=== PATIENT | male | born 1940 | race Caucasian/White ===

== ENCOUNTER → 2016-10-18 | Outpatient (REF) | payer MEDICARE ==
[~2016-10-18] MED LIST: AMLO10TA2 PO; ASPI81TA85 PO; ECOT81TA5 PO; LEVO50TA5 PO; LEVO75TA4 PO; METO50TA2 PO; MULT1TAB8 PO; MULTCAP11 PO
[2016-10-18 16:38] LABS: MEAN CORPUSCULAR HEMOGLOBIN 27.6 pg (27.0-33.0); MEAN CORPUSCULAR HGB CONC 32.6 g/dl (32.0-36.5); MEAN CORPUSCULAR VOLUME 84.6 fl (80.0-96.0); PLATELET COUNT, AUTOMATED 195 k/mm3 (150-450); RED CELL DISTRIBUTION WIDTH 13.6 % (11.5-14.5); WHITE BLOOD COUNT 5.7 K/mm3 (4.0-10.0)
[2016-10-18 18:30] LABS: ALBUMIN 3.8 GM/DL (3.2-5.2); ALBUMIN/GLOBULIN RATIO 1.09 (1.00-1.93); ALKALINE PHOSPHATASE 78 U/L (45-117); ALT/SGPT 34 U/L (12-78); ANION GAP 10 MEQ/L (8-16); AST/SGOT 24 U/L (15-37); BILIRUBIN,TOTAL 0.5 MG/DL (0.2-1.0); BLOOD UREA NITROGEN 13 MG/DL (7-18); CALCIUM LEVEL 8.7 MG/DL (8.8-10.2); CARBON DIOXIDE LEVEL 28 MEQ/L (21-32); CHLORIDE LEVEL 104 MEQ/L (98-107); CHOLESTEROL LEVEL 254 MG/DL (<200); CREATININE FOR GFR 1.06 MG/DL (0.70-1.30); FREE T4 1.12 NG/DL (0.76-1.46); GLOMERULAR FILTRATION RATE > 60.0 (>42); GLUCOSE, FASTING 95 MG/DL (83-110); SODIUM LEVEL 142 MEQ/L (136-145); TOTAL PROTEIN 7.3 GM/DL (6.4-8.2); TRIGLYCERIDES LEVEL 120 MG/DL (<150)
[2016-10-18 21:10] LABS: EOSINOPHILS 2 % (0-5)
== END ==
LOC: M LABDRWCV 16:21
PROVIDERS: ATTEND Emergency Medicine
DX: I10 Essential (primary) hypertension (principal); E78.2 Mixed hyperlipidemia; E03.9 Hypothyroidism, unspecified; E55.9 Vitamin D deficiency, unspecified; N40.1 Benign prostatic hyperplasia with lower urinary tract symptoms
CPT/HCPCS: 80053; 80061; 82306; 84439; 84443; 85025; G0103

== ENCOUNTER → 2016-10-26 | Outpatient (REF) | payer MEDICARE | LOC: M SMT 16:59 | PROVIDERS: ATTEND Nurse Practitioner Family | DX: R97.20 Elevated prostate specific antigen [PSA] (principal); R39.15 Urgency of urination; Z80.42 Family history of malignant neoplasm of prostate ==

== ENCOUNTER → 2016-11-08 | Outpatient (CLI) | payer MEDICARE ==
--- NOTE | 2016-11-08 10:16 | REP ---
TRANSRECTAL PROSTATE ULTRASOUND WITH ULTRASOUND GUIDANCE FOR PROSTATE BIOPSY: Real-time sonographic evaluation of prostate performed utilizing transrectal probe. The size of the gland is 4.0 x 2.8 x 4.8 cm. Echotexture is heterogeneous with scattered tiny calcifications. A right sided nodule measures 4 x 7 x 6 mm. Seminal vesicles appear symmetrical. Ultrasound guidance was provided for Dr. Tadeo who performed ultrasound guided biopsy of the prostate. Signed by Darwin Kelly MD 11/08/2016 04:21 P
== END ==
LOC: M SMT PRO 08:18
PROVIDERS: ATTEND Urology
DX: C61 Malignant neoplasm of prostate (principal)
CPT/HCPCS: 76872; 76942; G0416

== ENCOUNTER → 2016-11-18 | Outpatient (CLI) | payer MEDICARE ==
[~2016-11-18] MED LIST changes: +ISOVUE-370 76% 100ML VIAL (Q9967) As Ordered ONE
--- NOTE | 2016-11-18 11:15 | REP ---
CT of the pelvis without IV contrast: There are no comparisons. There are no lytic, blastic or destructive skeletal changes. The sacroiliac articulations and right and left hip articulations are unremarkable. The urinary bladder is unremarkable. Prostate appears slightly enlarged. Seminal vesicles are normal size and symmetric. There is no pelvic adenopathy or ascites. The pelvic bowel loops are unremarkable. Impression: Essentially negative CT of the pelvis. Sign of acute Signed by Darwin Cardona MD 11/18/2016 11:07 A
== END ==
LOC: M RAD 10:25
PROVIDERS: ATTEND Urology
DX: C61 Malignant neoplasm of prostate (principal)
CPT/HCPCS: 72193; Q9967

== ENCOUNTER → 2016-12-01 | Outpatient (CLI) | payer MEDICARE ==
[~2016-12-01] MED LIST changes: -ISOVUE-370 76% 100ML VIAL (Q9967) As Ordered ONE; -METO50TA2 PO; +METO50TA7 PO
--- NOTE | 2016-12-01 13:49 | RADONC ---
RADIATION ONCOLOGY CONSULTATION NOTE DATE: 12/01/2016 CHART NUMBER: [id number]. DIAGNOSIS: Prostate cancer. STAGE: IIA, [id number]. ECOG PERFORMANCE STATUS: 0. CONSULTATION NOTE: Mr. 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 HISTORY OF PRESENT ILLNESS: The patient was in his usual state of health until routine PSA was done on 10/18/2016 which was found to be 17.8. On 11/08/2016 the patient underwent prostatic needle biopsy and pathology revealed a moderate to poorly differentiated Javier score 7 (4-3) adenocarcinoma of prostate involving the right side. The patient has done well since biopsy is now presenting for discussion of definitive external beam radiation therapy with IMRT / IGRT. PAST MEDICAL HISTORY: The patient's past medical history is positive for hypothyroidism. ALLERGIES: The patient has no known drug allergies. SOCIAL HISTORY: The patient does not smoke cigarettes nor abuse alcohol. FAMILY HISTORY: The patient's family history is positive for a father and brother with prostate cancer. REVIEW OF SYSTEMS: The patient's review of systems is positive for some decreased energy, but is otherwise noncontributory. He denies nausea, vomiting, fevers, chills, night sweats, diplopia, headaches, anxiety or depression, anorexia, weight loss, visual disturbances, chest pain, urinary or bowel difficulties, bone pain, or neurological problems. PHYSICAL EXAMINATION: The patient is a well-developed, well-nourished male in no acute distress. HEENT exam is normocephalic, atraumatic. Extraocular movements are intact. There is no palpable cervical, supraclavicular, infraclavicular, axillary, or inguinal lymphadenopathy present. Lungs are clear to auscultation and percussion. Heart has a regular rate and rhythm. Abdomen is benign with no hepatosplenomegaly, masses, or tenderness. Rectal examination reveals a normal anal sphincter tone. His prostate is smooth with no evidence of nodularity. Skeletal examination reveals no tenderness to pressure or percussion of the bony skeleton. Extremities reveal no clubbing, cyanosis, or edema. Neurologic exam is grossly intact as is the remainder of the physical examination. MEDICAL NECESSITY: IMRT/IGRT is clinically indicated for the highly conformal dose planning required. The target volume is in close proximity to critical structures, such as the rectum, bladder, small bowel, and femoral heads. The volume of interest must be covered with narrow margins to adequately protect immediately adjacent structures. The plan requires interpretation of complex testing such as CT localization. As noted above, special planning (IMRT) and localizing (IGRT) is required and essential to maximally protect sensitive normal tissue structures which cannot be accomplished using conventional 3-dimensional planning. IMAGING: A CT scan of the pelvis was undertaken on 11/18/2016 which showed no evidence of lymphadenopathy or bony metastasis. I have personally reviewed that study. ASSESSMENT: Mr. Mckenna is presenting to us today for discussion of definitive external beam radiation therapy for his stage IIA, S1cY1S0 moderate to poorly differentiated adenocarcinoma of prostate, Coahoma score 7 (4-3). Clearly the patient is a candidate for this treatment and I have so informed him. I have discussed with the patient in detail the potential benefits as well as possible acute and chronic sequelae of external beam radiation therapy. We discussed logistics of treatment planning, simulation and subsequent fractionated daily radiation treatments. I discussed the benefits of treating with IMRT in order to reduce the doses to the normal structures such as and specifically to his bladder and rectum. We also discussed reduction of dose through IMRT to the small bowel. In addition, I spoke to the patient about the alternate treatment option which would be surgery. We discussed the benefits and drawbacks of each of the different treatment modalities. The patient is considering his options at this time. I have given him my cell phone number as well as office number and asked him to contact me once he makes a decision. He reports that he will be letting us know soon whether or not he wants surgery or radiation. Thank you for allowing us to participate in the care of this very pleasant gentleman. If I could be of any further assistance or provide you with any information, please feel free to contact me anytime. cc: Xander Tadeo MD *Magan Dodson MD
== END ==
LOC: M ONCR 08:56
PROVIDERS: ATTEND Radiology Radiation Oncology
DX: C61 Malignant neoplasm of prostate (principal)

== ENCOUNTER → 2016-12-13 | Outpatient (CLI) | payer MEDICARE ==
[~2016-12-13] MED LIST changes: +METO50TA2 PO; -METO50TA7 PO
--- NOTE | 2016-12-13 13:21 | REP ---
Whole body radionuclide bone scan: History: Prostate carcinoma. Technique: 21.2 mCi technetium 99m MDP is injected and standard whole body bone scan imaging is acquired. Scintigraphic findings: There is a normal distribution of skeletal tracer with uptake in bilateral kidneys and in the urinary bladder. Mild arthritic uptake is seen in the hands, knees and feet bilaterally. There is no evidence to suggest skeletal metastatic disease. Impression: No evidence to suggest skeletal metastatic disease. Signed by Alden Cuello MD 12/13/2016 01:42 P
== END ==
LOC: M RAD 09:26
PROVIDERS: ATTEND Radiology Radiation Oncology
DX: C61 Malignant neoplasm of prostate (principal)
CPT/HCPCS: 78306; A9503

== ENCOUNTER → 2017-01-10 | Outpatient (CLI) | payer MEDICARE ==
--- NOTE | 2017-01-10 15:24 | REP ---
TRANSRECTAL ULTRASOUND GUIDANCE FOR FIDUCIARY MARKER PLACEMENT: Real-time sonographic evaluation of the prostate performed utilizing transrectal probe for guidance for fiduciary marker placement. Six fiduciary markers were placed by Dr. Tadeo under transrectal ultrasound guidance. Signed by Darwin Kelly MD 01/11/2017 07:37 P
== END ==
LOC: M SMT 08:46
PROVIDERS: ATTEND Urology
DX: C61 Malignant neoplasm of prostate (principal)
CPT/HCPCS: 76872; A4648

== ENCOUNTER 2017-02-22 11:50 | Outpatient (RCR) | payer MEDICARE ==
--- NOTE | 2017-02-22 11:00 | RADONC ---
RADIATION ONCOLOGY SIMULATION NOTE DATE: 02/22/2017 CHART NUMBER: [id number] Mr. Mckenna was taken to the CT scan for CT simulation of his prostate field. CT was accomplished without difficulty or discomfort. Radiation treatment planning is underway and radiation treatments will begin subsequently. An immobilization device was created without difficulty or discomfort. It will be used throughout the course of treatment. I was physically present throughout the course of CT simulation.
== END 2017-02-27 ==
LOC: M ONCR 11:50
PROVIDERS: ATTEND Radiology Radiation Oncology
DX: C61 Malignant neoplasm of prostate (principal)

== ENCOUNTER → 2017-02-22 | Outpatient (CLI) | payer MEDICARE ==
[~2017-02-22] MED LIST changes: -METO50TA2 PO; +METO50TA7 PO
[2017-02-22 11:31] LABS: MEAN CORPUSCULAR HEMOGLOBIN 28.9 pg (27.0-33.0); MEAN CORPUSCULAR HGB CONC 34.7 g/dl (32.0-36.5); MEAN CORPUSCULAR VOLUME 83.4 fl (80.0-96.0); RED CELL DISTRIBUTION WIDTH 14.1 % (11.5-14.5); WHITE BLOOD COUNT 6.2 K/mm3 (4.0-10.0)
== END ==
LOC: M RAD 10:16
PROVIDERS: ATTEND Radiology Radiation Oncology
DX: C61 Malignant neoplasm of prostate (principal)

== ENCOUNTER 2017-02-28 13:16 | Outpatient (RCR) | payer MEDICARE ==
--- NOTE | 2017-03-14 07:42 | RADONC ---
RADIATION ONCOLOGY PROGRESS NOTE DATE OF SERVICE: 03/13/2017 CHART NUMBER: [id number] Mr. Mckenna is presently at a dose of 720 centigrade to his prostate and is tolerating treatments quite well at this point with no complaints related to his radiation therapy. He is having no urinary or bowel difficulties. No bone pain. REVIEW OF SYSTEMS: The patient's review of systems is noncontributory. Denies nausea, vomiting, fevers, chills, night sweats, diplopia, headaches, anxiety or depression, anorexia, weight loss, visual disturbances, chest pain, urinary or bowel difficulties, bone pain, or neurological problems. PHYSICAL EXAMINATION: The patient's skin is in good condition with no evidence of radiation change present. There is no moist or dry desquamation. The remainder of his physical exam remains unchanged. Mr. Mckenna is tolerating treatments quite well and radiation will continue as scheduled.
--- NOTE | 2017-03-21 07:45 | RADONC ---
RADIATION ONCOLOGY PROGRESS NOTE DATE: 03/20/2017 CHART NUMBER: [id number] Mr. Mckenna is presently at a dose of 1620 cGy to his prostate and is tolerating treatments quite well at this point with no complaints related to his radiation therapy. He is having no urinary or bowel difficulties and no bone pain. The patient's review of systems is noncontributory. He denies nausea, vomiting, fevers, chills, night sweats, diplopia, headaches, anxiety or depression, anorexia, weight loss, visual disturbances, chest pain, urinary or bowel difficulties, bone pain, or neurological problems. PHYSICAL EXAMINATION: The patient's skin is in good condition with no evidence of moist or dry desquamation. The remainder of his physical exam remains unchanged. Mr. Mckenna is tolerating treatments quite well and radiation will continue as scheduled.
--- NOTE | 2017-03-28 08:29 | RADONC ---
RADIATION ONCOLOGY PROGRESS NOTE DATE: CHART NUMBER: [id number] Mr. Mckenna is presently at a dose of 2520 cGy to his prostate and is tolerating treatments quite well at this point with no complaints related to his radiation therapy. He is having no urinary or bowel difficulties and no bone pain. REVIEW OF SYSTEMS: The patient's review of systems is noncontributory. Denies nausea, vomiting, fevers, chills, night sweats, diplopia, headaches, anxiety or depression, anorexia, weight loss, visual disturbances, chest pain, urinary or bowel difficulties, bone pain, or neurological problems. PHYSICAL EXAMINATION: The patient's skin is in good condition with no evidence of radiation change present. There is no moist or dry desquamation. The remainder of his physical exam remains unchanged. Mr. Mckenna is tolerating treatments quite well and radiation will continue as scheduled.
== END 2017-03-30 ==
LOC: M ONCR 13:16
PROVIDERS: ATTEND Radiology Radiation Oncology
DX: C61 Malignant neoplasm of prostate (principal)

== ENCOUNTER 2017-03-31 13:59 | Outpatient (RCR) | payer MEDICARE ==
--- NOTE | 2017-04-05 10:31 | RADONC ---
RADIATION ONCOLOGY PROGRESS NOTE DATE: 04/04/2017 CHART NUMBER: [id number] Mr. Mckenna is presently at a dose of 3240 cGy to his prostate and is tolerating treatments quite well at this point with no complaints related to his radiation therapy. He is having no urinary or bowel difficulties. No bone pain. The patient's review of systems is noncontributory. He denies nausea, vomiting, fevers, chills, night sweats, diplopia, headaches, anxiety or depression, anorexia, weight loss, visual disturbances, chest pain, urinary or bowel difficulties, bone pain, or neurological problems. PHYSICAL EXAMINATION: The patient's skin is in good condition with no evidence of radiation change present. There is no moist or dry desquamation. The remainder of his physical exam remains unchanged. Mr. Mckenna is tolerating treatments quite well and radiation will continue as scheduled.
--- NOTE | 2017-04-11 08:22 | RADONC ---
RADIATION ONCOLOGY PROGRESS NOTE DATE: 04/10/2017 CHART NUMBER: [id number] Mr. Mckenna is presently at a dose of 3960 cGy to his prostate and is tolerating treatments quite well at this point with no complaints related to his radiation therapy. He is having no urinary or bowel difficulties. No bone pain. REVIEW OF SYSTEMS: The patient's review of systems is noncontributory. Denies nausea, vomiting, fevers, chills, night sweats, diplopia, headaches, anxiety or depression, anorexia, weight loss, visual disturbances, chest pain, urinary or bowel difficulties, bone pain, or neurological problems. PHYSICAL EXAMINATION: The patient's skin is in good condition with no evidence of radiation change present. There is no moist or dry desquamation. The remainder of his physical exam remains unchanged. ASSESSMENT: The patient is tolerating treatments quite well at this point with no significant difficulties related to his radiation and treatments will continue as scheduled.
--- NOTE | 2017-04-18 07:50 | RADONC ---
RADIATION ONCOLOGY PROGRESS NOTE DATE: 04/17/2017 CHART NUMBER: [id number]. PROGRESS NOTE: Mr. Mckenna is presently at a dose of 4680 cGy to his prostate and is overall tolerating his treatments quite well. He is complaining of burning urination today. The patient's review of systems is positive for some burning upon urination but is otherwise noncontributory. Denies nausea, vomiting, fevers, chills, night sweats, diplopia, headaches, anxiety or depression, anorexia, weight loss, visual disturbances, chest pain, urinary or bowel difficulties, bone pain, or neurological problems. PHYSICAL EXAMINATION: The patient's skin is in good condition with no evidence of radiation change present. There is no moist or dry desquamation. The remainder of his physical exam remains unchanged. Mr. Mckenna is tolerating treatments quite well and radiation will continue as scheduled.
--- NOTE | 2017-04-25 09:25 | RADONC ---
RADIATION ONCOLOGY PROGRESS NOTE: DATE: 04/24/2017 CHART NUMBER: [id number] Mr. Mckenna is presently at a dose of 5580 cGy to his prostate and is tolerating treatments quite well at this point with no complaints related to his radiation therapy. He is having no urinary or bowel difficulties and no bone pain. REVIEW OF SYSTEMS: The patient's review of systems is noncontributory. He denies nausea, vomiting, fevers, chills, night sweats, diplopia, headaches, anxiety or depression, anorexia, weight loss, visual disturbances, chest pain, urinary or bowel difficulties, bone pain, or neurological problems. PHYSICAL EXAMINATION: The patient's skin is in good condition with no evidence of radiation change present. There is no moist or dry desquamation. The remainder of his physical exam remains unchanged. Mr. Mckenna is tolerating treatments quite well and radiation will continue as scheduled.
== END 2017-04-29 ==
LOC: M ONCR 13:59
PROVIDERS: ATTEND Radiology Radiation Oncology
DX: C61 Malignant neoplasm of prostate (principal)

== ENCOUNTER → 2017-04-17 | Outpatient (CLI) | payer MEDICARE | LOC: M LAB 16:07 | PROVIDERS: ATTEND Radiology Radiation Oncology | DX: R30.0 Dysuria (principal); C61 Malignant neoplasm of prostate ==

== ENCOUNTER → 2017-06-07 | Outpatient (CLI) | payer MEDICARE ==
--- NOTE | 2017-06-09 16:03 | RADONC ---
RADIATION ONCOLOGY FOLLOWUP DATE: 06/07/2017 CHART NUMBER: [id number] DIAGNOSIS Prostate cancer. STAGE: II A, H3bQ7G6. ECOG PERFORMANCE STATUS: 0. FOLLOWUP NOTE: Mr. Mckenna is a very pleasant 76-year-old white male with the diagnosis of a stage II A, U8jU8T1 moderate to poorly differentiated Javier score 7 (4-3) adenocarcinoma of prostate who is presenting to us today for routine followup visit 1 month post completion of external beam radiation therapy. The patient presents today reporting that he is doing quite well with no complaints at this time related to his radiation therapy or disease. He has no urinary or bowel difficulties and no bone pain. REVIEW OF SYSTEMS: The patient's review of systems is noncontributory. Denies nausea, vomiting, fevers, chills, night sweats, diplopia, headaches, anxiety or depression, anorexia, weight loss, visual disturbances, chest pain, urinary or bowel difficulties, bone pain, or neurological problems. PHYSICAL EXAMINATION: The patient is a well-developed, well-nourished male in no acute distress. HEENT exam is normocephalic, atraumatic. Extraocular movements are intact. There is no palpable cervical, supraclavicular, infraclavicular, axillary, or inguinal lymphadenopathy present. Lungs are clear to auscultation and percussion. Heart has a regular rate and rhythm. Abdomen is benign with no hepatosplenomegaly, masses, or tenderness. Rectal examination reveals a normal anal sphincter tone. His prostate is smooth with no evidence of nodularity. Skeletal examination reveals no tenderness to pressure or percussion of the bony skeleton. Extremities reveal no clubbing, cyanosis, or edema. Neurologic exam is grossly intact, as is the remainder of the physical examination. ASSESSMENT: The patient is clinically doing well at this point and will be seen by us again in 6 months for further followup. He will also continue to be followed by his other physicians as well. cc: MD Xander Ruano MD
== END ==
LOC: M ONCR 15:06
PROVIDERS: ATTEND Radiology Radiation Oncology
DX: C61 Malignant neoplasm of prostate (principal)
CPT/HCPCS: 36415; 84153; G0463

== ENCOUNTER → 2017-06-07 | Outpatient (CLI) | payer MEDICARE | LOC: M LAB 15:01 | PROVIDERS: ATTEND Radiology Radiation Oncology | DX: C61 Malignant neoplasm of prostate (principal) ==

== ENCOUNTER → 2017-11-29 | Outpatient (CLI) | payer MEDICARE ==
[2017-11-29 12:52] LABS: PROSTATIC SPECIFIC AG MONITOR 0.02 NG/ML (< 4.0)
== END ==
LOC: M ONCR 11:20
DX: C61 Malignant neoplasm of prostate (principal)
CPT/HCPCS: 84153

== ENCOUNTER → 2018-01-01 | Outpatient (REF) | payer MEDICARE ==
[2018-01-01 19:30] LABS: TOTAL 25(OH) VITAMIN D 16.5 NG/ML (30.0-100.0)
[2018-01-01 19:33] LABS: ALBUMIN 3.6 GM/DL (3.2-5.2); ALBUMIN/GLOBULIN RATIO 0.97 (1.00-1.93); ALKALINE PHOSPHATASE 104 U/L (45-117); ALT/SGPT 22 U/L (12-78); ANION GAP 9 MEQ/L (8-16); AST/SGOT 16 U/L (7-37); BILIRUBIN,TOTAL 0.4 MG/DL (0.2-1.0); BLOOD UREA NITROGEN 12 MG/DL (7-18); CALCIUM LEVEL 8.5 MG/DL (8.8-10.2); CARBON DIOXIDE LEVEL 29 MEQ/L (21-32); CHLORIDE LEVEL 105 MEQ/L (98-107); CHOLESTEROL LEVEL 261 MG/DL (<200); CHOLESTEROL RISK RATIO 5.117 (<5); CREATININE FOR GFR 0.88 MG/DL (0.70-1.30); FREE T4 0.96 NG/DL (0.76-1.46); GLOMERULAR FILTRATION RATE > 60.0 (>42); GLUCOSE, FASTING 89 MG/DL (70-100); HDL CHOLESTEROL 51 MG/DL (>40); LDL CHOLESTEROL 167.6 MG/DL (<100); NON-HDL-C 210 MG/DL; POTASSIUM SERUM 4.2 MEQ/L (3.5-5.1); SODIUM LEVEL 143 MEQ/L (136-145); THYROID STIMULATING HORMONE 0.887 uIU/ML (0.358-3.740); TOTAL PROTEIN 7.3 GM/DL (6.4-8.2); TRIGLYCERIDES LEVEL 212 MG/DL (<150)
== END ==
LOC: M LAB REF 17:46
DX: E78.2 Mixed hyperlipidemia (principal); E03.9 Hypothyroidism, unspecified; E55.9 Vitamin D deficiency, unspecified
CPT/HCPCS: 84443

== ENCOUNTER → 2018-05-15 | Outpatient (REF) | payer MEDICARE | LOC: M LABDRWCV 16:26 | DX: C61 Malignant neoplasm of prostate (principal) | CPT/HCPCS: 84153 ==

== ENCOUNTER → 2018-06-06 | Outpatient (CLI) | payer MEDICARE | LOC: M ONCR 15:07 | DX: C61 Malignant neoplasm of prostate (principal) | CPT/HCPCS: G0463 ==

== ENCOUNTER → 2018-08-12 | Outpatient (CLI) | payer MEDICARE ==
[~2018-08-12] MED LIST changes: -AMLO10TA2 PO; +AMLO10TA5 PO
[2018-08-12 17:25] LABS: BASO % 0.4 % (0.0-1.0); EOS # 0.1 10^3/uL (0.0-0.50); EOS % 0.9 % (0.0-3.0); HEMATOCRIT 45.2 % (42.0-52.0); HEMOGLOBIN 14.7 g/dl (13.5-17.5); LYMPH # 0.8 10^3/uL (1.5-4.5); LYMPH % 10.2 % (24.0-44.0); MEAN CORPUSCULAR HEMOGLOBIN 27.7 pg (27.0-33.0); MEAN CORPUSCULAR HGB CONC 32.5 g/dl (32.0-36.5); MEAN CORPUSCULAR VOLUME 85.1 fl (80.0-96.0); MONO # 0.4 10^3/uL (0.0-0.8); MONO % 5.4 % (0.0-5.0); NEUTROPHILS # 6.3 10^3/uL (1.8-7.7); NEUTROPHILS % 82.7 % (36.0-66.0); PLATELET COUNT, AUTOMATED 196 10^3/uL (150-450); RED BLOOD COUNT 5.31 10^6/uL (4.30-6.10); WHITE BLOOD COUNT 7.6 10^3/uL (4.0-10.0)
[2018-08-12 17:38] LABS: ALBUMIN 3.8 GM/DL (3.2-5.2); ALT/SGPT 29 U/L (12-78); BILIRUBIN,TOTAL 0.4 MG/DL (0.2-1.0); BLOOD UREA NITROGEN 14 MG/DL (7-18); CALCIUM LEVEL 8.6 MG/DL (8.8-10.2); CARBON DIOXIDE LEVEL 28 MEQ/L (21-32); CHLORIDE LEVEL 101 MEQ/L (98-107); CREATININE FOR GFR 0.92 MG/DL (0.70-1.30); GLOMERULAR FILTRATION RATE > 60.0 (>42); GLUCOSE, FASTING 96 MG/DL (70-100); IRON (FE) 72 UG/DL (65-175); PERCENT SATURATION 18.2 % (19.7-50.0); POTASSIUM SERUM 4.1 MEQ/L (3.5-5.1); SODIUM LEVEL 138 MEQ/L (136-145); THYROID STIMULATING HORMONE 0.887 uIU/ML (0.358-3.740); TOTAL IRON BINDING CAPACITY 396 UG/DL (250-450); TOTAL PROTEIN 7.8 GM/DL (6.4-8.2)
[2018-08-12 17:53] LABS: ERYTHROCYTE SEDIMENTATION RATE 23 mm/hr (0-20)
== END ==
LOC: M WUC 12:36
PROVIDERS: ATTEND Physician Assistant
DX: R42 Dizziness and giddiness (principal); H68.013 Acute Eustachian salpingitis, bilateral; R51 Headache

== ENCOUNTER → 2018-11-07 | Outpatient (REF) | payer MEDICARE ==
[2018-11-07 18:01] LABS: CHOLESTEROL RISK RATIO 5.313 (<5)
[2018-11-07 18:10] LABS: TOTAL 25(OH) VITAMIN D 26.6 NG/ML (30.0-100.0)
== END ==
LOC: M LABDRWCV 16:50
PROVIDERS: ATTEND Physician Assistant Medical
DX: E78.2 Mixed hyperlipidemia (principal); E55.9 Vitamin D deficiency, unspecified; C61 Malignant neoplasm of prostate

== ENCOUNTER → 2018-11-07 | Outpatient (REF) | payer MEDICARE | LOC: M SFHCCAPE 09:41 | PROVIDERS: ATTEND Urology | DX: C61 Malignant neoplasm of prostate (principal) ==

== ENCOUNTER → 2019-02-12 | Outpatient (REF) | payer MEDICARE | LOC: M LAB REF 11:45 | PROVIDERS: ATTEND Physician Assistant | DX: J02.9 Acute pharyngitis, unspecified (principal) ==

== ENCOUNTER → 2019-03-05 | Outpatient (REF) | payer MEDICARE ==
[2019-03-05 17:00] LABS: PROSTATIC SPECIFIC AG MONITOR 0.03 NG/ML (< 4.00)
[2019-03-06 14:25] LABS: CHOLESTEROL RISK RATIO 3.175 (<5)
== END ==
LOC: M SFHCCAPE 07:42
PROVIDERS: ATTEND Urology
DX: C61 Malignant neoplasm of prostate (principal); E78.2 Mixed hyperlipidemia

== ENCOUNTER → 2019-05-20 | Outpatient (CLI) | payer MEDICARE | LOC: M LAB 14:39 | PROVIDERS: ATTEND Urology | DX: C61 Malignant neoplasm of prostate (principal) ==

== ENCOUNTER → 2019-08-06 | Outpatient (REF) | payer MEDICARE | LOC: M SFHCCAPE 07:26 | PROVIDERS: ATTEND Urology | DX: C61 Malignant neoplasm of prostate (principal) ==

== ENCOUNTER → 2019-08-06 | Outpatient (REF) | payer MEDICARE ==
[2019-08-06 18:45] LABS: HEMOGLOBIN A1c 6.1 %
[2019-08-06 18:47] LABS: ALBUMIN 3.5 GM/DL (3.2-5.2); ALT/SGPT 25 U/L (12-78); BILIRUBIN,TOTAL 0.4 MG/DL (0.2-1.0); BLOOD UREA NITROGEN 16 MG/DL (7-18); CALCIUM LEVEL 9.1 MG/DL (8.8-10.2); CARBON DIOXIDE LEVEL 28 MEQ/L (21-32); CHLORIDE LEVEL 104 MEQ/L (98-107); CHOLESTEROL LEVEL 261 MG/DL (<200); CREATININE FOR GFR 0.96 MG/DL (0.70-1.30); FREE T4 0.95 NG/DL (0.76-1.46); GLOMERULAR FILTRATION RATE > 60.0 (>42); GLUCOSE, FASTING 92 MG/DL (70-100); HDL CHOLESTEROL 50 MG/DL (>40); LDL CHOLESTEROL 167 MG/DL (<100); NON-HDL-C 211 MG/DL; POTASSIUM SERUM 4.2 MEQ/L (3.5-5.1); SODIUM LEVEL 140 MEQ/L (136-145); TOTAL 25(OH) VITAMIN D 26.8 NG/ML (30.0-100.0); TOTAL PROTEIN 7.4 GM/DL (6.4-8.2); TRIGLYCERIDES LEVEL 221 MG/DL (<150)
== END ==
LOC: M LABDRWCV 16:54
PROVIDERS: ATTEND Physician Assistant Medical
DX: Z00.00 Encounter for general adult medical examination without abnormal findings (principal); E03.9 Hypothyroidism, unspecified; I10 Essential (primary) hypertension; E55.9 Vitamin D deficiency, unspecified; E78.2 Mixed hyperlipidemia; Z79.899 Other long term (current) drug therapy; C61 Malignant neoplasm of prostate

== ENCOUNTER → 2020-05-27 | Outpatient (REF) | payer MEDICARE ==
[~2020-05-27] MED LIST changes: -AMLO10TA5 PO; +AMLO1TAB25 PO; -ASPI81TA85 PO; +ASPI81TA86 PO
== END ==
LOC: M SFHCCLAY 08:55
PROVIDERS: ATTEND Urology
DX: C61 Malignant neoplasm of prostate (principal)

== ENCOUNTER → 2020-06-02 | Outpatient (REF) | payer MEDICARE ==
[2020-06-02 18:18] LABS: APPEARANCE, URINE CLEAR (CLEAR); BACTERIA, URINE AUTO NEGATIVE (NEGATIVE); BILIRUBIN, URINE AUTO NEGATIVE (NEGATIVE); BLOOD, URINE BLOOD NEGATIVE (NEGATIVE); COLOR, URINE YELLOW (YELLOW); GLUCOSE, URINE (UA) AUTO NEGATIVE (NEGATIVE); KETONE, URINE AUTO NEGATIVE (NEGATIVE); LEUKOCYTE ESTERASE, URINE AUTO NEGATIVE (NEGATIVE); NITRITE, URINE AUTO NEGATIVE (NEGATIVE); PROTEIN, URINE AUTO NEGATIVE (NEGATIVE); RBC, URINE AUTO 0 /HPF (0-3); SPECIFIC GRAVITY URINE AUTO 1.013 (1.002-1.035); SQUAMOUS EPITHELIAL CELL UR AU 0 /HPF (0-6); UROBILINOGEN, URINE AUTO 0.2 mg/dL (0.0-2.0); WBC, URINE AUTO 0 /HPF (0-3)
== END ==
LOC: M SMT 17:00
PROVIDERS: ATTEND Urology
DX: R31.0 Gross hematuria (principal)
CPT/HCPCS: 81001; 87086; G0463

== ENCOUNTER 2020-08-20 06:57 | Emergency (ER) | payer MEDICARE ==
[~2020-08-20] VITALS: Ht 177.8 cm; Wt 89.1 kg
--- OUTSIDE RECORDS SUMMARY | 2020-08-20 07:03 | CCD | Continuity of Care Document ---
Author Author Juan J [facility] [employer] [facility] Organization Unknown Address [address] [place] [address] [place] [address] Phone [phone] Care Team Providers Care Family Court Registrar Name Role Phone [facility] - Family Medicine [facility] + [phone] Problems Description No Information Available Social History Type Date Description Comments Sex Unknown ETOH Use Denies alcohol use Tobacco Use Start: Unknown Patient has never smoked Smoking Status Reviewed: 08/06/20 Patient has never smoked Allergies, Adverse Reactions, Alerts Description No Known Drug Allergies Medications Active Medications SIG Qnty Indications Ordering Provide r Date Amoxicillin 875mg Tablets 1 tab by mouth twice a day as directed x 10 days 20tabs H65.02 Bacilio olivares JR., M.D. 08/06/2020 Loratadine 10mg Tablets once a day as needed for allergy symptoms 30tabs H65.02 Bacilio Almazan M.D. 08/06/2020 Levothyroxine Sodium 75mcg Tablets Unknown Vitamin D (Ergocalciferol) 2000Unit Capsules Unknown Fish Oil 435mg Capsules Unknown Icaps Areds 2 2 Capsules Unknown Multivitamin Adult Chewtabs 1 by mouth every day Unknown Aspirin 325mg Tablets prn Unknown Aspercreme 10% Lotion Unknown Immunizations Description No Information Available Vital Signs Date Vital Result Comment 08/06/2020 6:04pm BP Systolic 156 mmHg BP Diastolic 79 mmHg Heart Rate 85 /min Respiratory Rate 12 /min O2 % BldC Oximetry 97 % Body Temperature 97.8 F Weight 180.00 lb Height 70 inches 5'10" BMI (Body Mass Index) 25.8 kg/m2 Pain Level 6 02/12/2019 4:34pm BP Systolic 172 mmHg BP Diastolic 93 mmHg Heart Rate 93 /min Respiratory Rate 18 /min O2 % BldC Oximetry 95 % Body Temperature 99.5 F Weight 180.00 lb Height 70 inches 5'10" BMI (Body Mass Index) 25.8 kg/m2 Pain Level 6 Results Description No Information Available Procedures Description No Information Available Medical Devices Description No Information Available Encounters Type Date Location Provider Dx Diagnosis Office Visit 08/06/2020 5:20p Main Office Zulema Dominique NP H65. 02 Acute serous otitis media, left ear Assessments Date Code Description Provider 08/06/2020 H65.02 Acute serous otitis media, left ear Zulema Dominique NP Plan of Treatment 08/06/2020 - Zulema Dominique NP* H65.02 Acute serous otitis media, left ear* New Medication:* Amoxicillin 875 mg - 1 tab by mouth twice a day as directed x 10 days * Loratadine 10 mg - once a day as needed for allergy symptoms * Comments:* use abx as directedrest/timetylenol/motrin PRN for painf/u PRN or with PCP patient v/u & agrees to plan Functional Status Description No Information Available Mental Status Description No Information Available Referrals Description No Information Available
--- OUTSIDE RECORDS SUMMARY | 2020-08-20 07:03 | CCD | Continuity of Care Document ---
Author Author Juan J [facility] MANAGER [employer] Organization Unknown Address [address] [place] [address] [place] [address] Phone [phone] Care Team Providers Care Radiology Physician Assistant Name Role Phone [facility] - Family Medicine [facility] + [phone] Problems Description No Information Available Social History [...]
--- OUTSIDE RECORDS SUMMARY | 2020-08-20 07:03 | CCD ---
Author Author [facility] Organization [facility] Address Unknown Phone Unavailable Care Team Providers Care Public Aid Eligibility Assistant Name Role Phone Xander Tadeo Unavailable PROBLEMS Type Condition ICD9-CM Code [id number]-FN Code Onset Dates Condition S tatus SNOMED Code Notes Problem Preop testing Z01.818 Active 276067705 Problem Gross hematuria R31.0 Active 990023284 Problem Prostate cancer C61 Active [id number] ALLERGIES No Known Allergies ENCOUNTERS from 1940 to 2020-06-09 Encounter Location Date Provider Diagnosis [facility] [address] [place] [address] May Xander Tadeo Prostate cancer C61 and Gross hematuria R31.0 IMMUNIZATIONS No Information SOCIAL HISTORY Tobacco Use: Social History Observation Description Date Details (start date - stop date) Never Smoker Sex Assigned At : Social History Observation Description Sex Assigned At Unknown Language: Question Answer Notes Languages spoken: Maltese Judaism: Question Answer Notes Judaism No islam beliefs that would impact health care. Sexual Hx: Question Answer Notes Had sex in the last 12 months (vaginal, oral, or anal)? No Have you ever had an STD? No Alcohol Screening: Question Answer Notes Did you have a drink containing alcohol in the past year? No Points 0 Interpretation Negative Tobacco Use: Question Answer Notes Are you a: never smoker REASON FOR REFERRAL No Information VITAL SIGNS Weight 181 lbs May, Height 70 in May, BMI 25.97 kg/m2 May, Heart Rate 86 /min May, Respiratory Rate 17 /min May, Temperature 96.6 degrees Fahrenheit May, Oximetry 98 May, Blood pressure systolic 138 mm Hg May, Blood pressure diastolic 68 MANUAL mm Hg May, MEDICATIONS Medication SIG (Take, Route, Frequency, Duration) Start Date En d Date Status CoQ-10 100 MG 1 capsule with a meal Orally Once a day Active Lupron Depot (1-Month) 7.5 MG as directed Intramuscular once Feb Not-Taking Levothyroxine Sodium 75 MCG 1 tablet on an empty stoma ch in the morning Orally Once a day Active Aspir-81 81 MG 1 tablet Orally Once a day Active Vitamin D 1000 UNIT 1 tablet Orally Once a day Active ICaps - Orally Not-Taking Omeprazole 40 MG 1 capsule Orally Once a day Not-Taking Ciprofloxacin HCl 500 MG 1 tablet (start taking the e vening prior to your procedure) Orally every 12 hrs Sep, Not-Takin g Multivital-M Active Eligard 7.5 MG as directed Subcutaneous q 6 months Apr, Not-Taking Eligard 7.5 MG as directed Subcutaneous monthly May, Not-Taking Fish Oil 1000 MG 1 capsule Orally Once a day Active Lupron Depot 45 MG as directed Intramuscular once Dec, Not-Taking PROCEDURES No Information RESULTS Component Value Reference Range UA URINALYSIS Reviewed date:06/03/2020 13:53:55 Interpretation: Performing Lab:Critical access hospital LABORATORY [address] [facility] [address] , ,[place] [id number] URINE CULTURE Reviewed date:06/03/2020 13:54:05 Interpretation: Performing Lab:Critical access hospital LABORATORY [address] [facility] [id number] , ,[place] [id number] REASON FOR VISIT yearly fu MEDICAL (GENERAL) HISTORY Type Description Date Medical History Hypothyroidism Medical History asthma as a child Medical History Hypercholesterolemia Medical History alergies Medical History prostate cancer Surgical History Trus biposy 10/2016 Hospitalization History dizziness 2016 Goals Section No Information Health Concerns No Information MEDICAL EQUIPMENT No Information MENTAL STATUS No Information FUNCTIONAL STATUS No Information ASSESSMENTS Encounter Date Diagnosis Notes May, Gross hematuria (ICD-10 - R31.0) May, Prostate cancer (ICD-10 - C61) PLAN OF TREATMENT Treatment Notes Assessment Notes Clinical Notes Prostate cancer - send urine for UA and culture- will continue to follow PSA q6 months- f/u for cystoscopy in a few wks Future Test Test Name Order Date PSA MONITOR (HX PROSTATE CA/ABNORMAL PSA) [id number] Next Appt Details cystoscopy Reason:gross hematuria Provider Name:Xander Montoya Carlyle, 01:30:00 PM, [address], [place], [address], Follow Up:cystoscopygross hematuria Insurance Providers Payer Name Payer Address Payer Phone Insured Name Patient Relati onship to Insured Coverage Start Date Coverage End Date [employer] [facility] CLAIM DIV [address] [facility] [phone] DAVID MCKENNA self MEDICARE BLUE [id number] [facility] [place] [address] DAVID MCKENNA self
--- OUTSIDE RECORDS SUMMARY | 2020-08-20 07:04 | CCD ---
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 Role Phone Petrancostolivia Livingston Alberta PA-C Unavailable Unavailabl e Petrancosta, Livingston Alberta PA-C Unavailable Unavailabl e Petrancosta, Livingston Alberta PA-C Unavailable Unavailabl e Petrancosta, Livingston Alberta PA-C Unavailable Unavailabl e Petrancosta, Livingston Alberta PA-C Unavailable Unavailabl e Petrancosta, Livingston Alberta PA-C Unavailable Unavailabl e Petrancosta, Livingston Alberta PA-C Unavailable Unavailabl e Petrancosta, Livingston Alberta PA-C Unavailable Unavailabl e Petrancosta, Livingston Alberta PA-C Unavailable Unavailabl e Petrancosta, Livingston Alberta PA-C Unavailable Unavailabl e Petrancosta, Livingston Alberta PA-C Unavailable Unavailabl e Petrancosta, Livingston Alberta PA-C Unavailable Unavailabl e Petrancosta, Livingston Alberta PA-C Unavailable Unavailabl e Petrancosta, Livingston Alberta PA-C Unavailable Unavailabl e Petrancosta, Livingston Alberta PA-C Unavailable Unavailabl e Petrancosta, Livingston Alberta PA-C Unavailable Unavailabl e Petrancosta, Livingston Alberta PA-C Unavailable Unavailabl e Petrancosta, Livingston Alberta PA-C Unavailable Unavailabl e Petrancosta, Livingston Alberta PA-C Unavailable Unavailabl e Petrancosta, Livingston Alberta PA-C Unavailable Unavailabl e Petrancosta, Livingston Alberta PA-C Unavailable Unavailabl e Petrancosta, Livingston Alberta PA-C Unavailable Unavailabl e Petrancosta, Livingston Alberta PA-C Unavailable Unavailabl e Dominique, Zulema MEDICAL BILLING MANAGER Unavailable Unavailable Dominique, Zulema MEDICAL BILLING MANAGER Unavailable Unavailable Dominique, Zulema MEDICAL BILLING MANAGER Unavailable Unavailable Dominique, Zulema MEDICAL BILLING MANAGER Unavailable Unavailable Dominique, Zulema MEDICAL BILLING MANAGER Unavailable Unavailable Dominique, Zulema MEDICAL BILLING MANAGER Unavailable Unavailable Dominique, Zulema MEDICAL BILLING MANAGER Unavailable Unavailable Dominique, Zulema MEDICAL BILLING MANAGER Unavailable Unavailable Dominique, Zulema MEDICAL BILLING MANAGER Unavailable Unavailable Dominique, Zulema MEDICAL BILLING MANAGER Unavailable Unavailable Dominique, Zulema MEDICAL BILLING MANAGER Unavailable Unavailable MARILEE, RON JEANA PA Unavailable Unavailable MARILEE, RON JEANA PA Unavailable Unavailable MARILEE, RON JEANA PA Unavailable Unavailable MARILEE, RON JEANA PA Unavailable Unavailable MARILEE, RON JEANA PA Unavailable Unavailable MARILEE, RON JEANA PA Unavailable Unavailable MARILEE, RON JEANA PA Unavailable Unavailable MARILEE, RON JEANA PA Unavailable Unavailable MARILEE, RON JEANA PA Unavailable Unavailable MARILEE, RON JEANA PA Unavailable Unavailable MARILEE, RON JEANA PA Unavailable Unavailable MARILEE, RON JEANA PA Unavailable Unavailable MARILEE, RON JEANA PA Unavailable Unavailable MARILEE, RON JEANA PA Unavailable Unavailable MARILEE, RON JEANA PA Unavailable Unavailable MARILEE, RON JEANA PA Unavailable Unavailable MARILEE, RON JEANA PA Unavailable Unavailable MARILEE, RON JEANA PA Unavailable Unavailable MARILEE, RON JEANA PA Unavailable Unavailable MARILEE, RON JEANA PA Unavailable Unavailable MARILEE, RON JEANA PA Unavailable Unavailable Re-disclosure Warning The records that you are about to access may contain information from federally-assisted alcohol or drug abuse programs. If such information is present, then the following federally mandated warning applies: This information has been disclosed to you from records protected by federal confidentiality rules (42 CFR part 2). The federal rules prohibit you from making any further disclosure of this information unless further disclosure is expressly permitted by the written consent of the person to whom it pertains or as otherwise permitted by 42 CFR part 2. A general authorization for the release of medical or other information is NOT sufficient for this purpose. The Federal rules restrict any use of the information to criminally investigate or prosecute any alcohol or drug abuse patient.The records that you are about to access may contain highly sensitive health information, the redisclosure of which is protected by Article 27-F of the [facility] Public Health law. If you continue you may have access to information: Regarding HIV / AIDS; Provided by facilities licensed or operated by the [facility] Office of Mental Health; or Provided by the [facility] Office for People With Developmental Disabilities. If such information is present, then the following [facility] mandated warning applies: This information has been disclosed to you from confidential records which are protected by state law. State law prohibits you from making any further disclosure of this information without the specific written consent of the person to whom it pertains, or as otherwise permitted by law. Any unauthorized further disclosure in violation of state law may result in a fine or [place] health care facility sentence or both. A general authorization for the release of medical or other information is NOT sufficient authorization for further disc losure. Family History Family Member Name Family Member Gender Family Member Status Date o f Status Description Data Source(s) Unknown Unknown Problem [facility] ([facility]) Unknown Unknown Problem [facility] Unknown Male Problem [facility] ([facility] ) () - at age 76 Unknown Unknown Problem [facility] ([facility] Encounters Encounter Providers Location Date Indications Data Source(s ) Outpatient Attender: Zulema marcos 08/06/2020 04:20:00 PM EST [facility] ([facility] [place] [address] [facility] [address] 06/08/2020 12:00:00 AM EST eCW1 ([facility]) Outpatient [address] [facility] [address] 06/02/2020 12:00:00 AM EST eCW1 ([facility]) Outpatient Attender: Alberta Forte PA-C Main Office 03/04/2020 03:15:00 PM EDT [facility] ([facility] Emergency Attender: JEANA MONCADA EMERGENCY ROOM-ER 02/20/2020 02:33:00 PM EDT - 02/20/2020 03:00:00 PM EDT [facility] Patient discharged. Outpatient Attender: Alberta Forte PA-C Main Office 08/12/2019 01:00:00 PM EST [facility] ([facility] [address] [place] [phone] 08/09/2019 12:00:00 AM EST eCW1 ([facility]) [facility] [address] [place] [phone] 08/06/2019 12:00:00 AM EST eCW1 ([facility]) Immunizations Vaccine Date Status Description Data Source(s) INFLUENZA VACCINE QUADRIVALENT (65 YR UP)/MF59 C.1/PF 06/17/2020 12:00:00 AM EST completed [facility] Medications Medication Brand Name Start Date Product Form Dose Route Admi nistrative Instructions Pharmacy Instructions Status Indications Reaction Description Data Source(s) Amoxicillin 875 MG Oral Tablet Amoxicillin 08/06/2020 12:00:00 AM EST ORAL active [facility] ([facility]) Loratadine 10 MG Oral Tablet Loratadine 08/06/2020 12:00:00 AM EST active [facility] ([facility]) Insurance Providers Payer name Policy type / Coverage type Policy ID Covered green party ID Covered green party's relationship to espana Policy [place] Plan Information MEDICARE BLUE PPO 306 [id number] SP [id number] [facility] OPTIONS [id number] SP [id number] MEDICARE [id number] SP [id number] S [id number] [facility] OPTIONS [id number] S [id number] [facility] DIVISION [id number] S [id number] [facility] [id number] S [id number] [facility] OPTIONS [id number] S [id number] [facility] MEDICARE DIVISION [id number] S [id number] [place]IC[place] - [place] [id number] S [id number] ANSI-Commercial [id number] ANSI-Medicare Part B [id number] ANSI-Commercial [id number] ANSI-Medicare Part B [id number] [facility] Health Care Options [facility] Part B [id number] Self [id number] Medicare Natl Gov't Servi Medicare Primary [id number] Self [id number] [facility] Health Care Options [facility] Part B [id number] Self [id number] Medicare Natl Gov't Servi Medicare Primary [id number] Self [id number] ANSI-Commercial [id number] ANSI-Medicare Part B [id number] ANSI-Medicare Part B [id number] ANSI-Commercial [id number] [facility] Options Medigap Part B [id number] Self [id number] Medicare Natl Gov't Servi Medicare Primary [id number] Self [id number] [facility] Medigap Part B [id number] Self [id number] [facility] Medicare Primary [id number] Self [id number] MEDICARE [id number] SP [id number] A ANSI-Commercial [id number] ANSI-Medicare Part B [id number] ANSI-Medicare Part B [id number] ANSI-Commercial [id number] [facility] Medigap Part B [id number] Self [id number] [facility] Medicare Primary [id number] Self [id number] EXCELLUS BCBS [facility] [id number] S [id number] [facility] Medigap Part B [id number] Self [id number] [facility] Medicare Primary [id number] Self [id number] MEDICARE BLUE PPO 306 [id number] SP [id number] [facility] Options Medigap Part B [id number] Self [id number] Medicare [facility] Medicare Primary [id number] Self [id number] MEDICARE BLUE PPO 306 [id number] SP [id number] BCBS Medicare Commercial [id number] Self [id number] [id number] MEDICARE BLUE PPO 306 [id number] SP [id number] MEDICARE BLUE PPO 306 [id number] SP [id number] BCBS Medicare Commercial [id number] Self [id number] [id number] BCBS Medicare Commercial [id number] Self [id number] [id number] BCBS Medicare Commercial [id number] Self [id number] [id number] MEDICARE BLUE PPO 306 [id number] SP [id number] [facility] [place] [facility] (HMO) Self Medicare Advantage BCBS Medigap Part B Self [place] [employer]-Today's Opt Commercial Self BCBS [place] [id number] S [id number] [id number] BCBS EMPIRE BC UNAVAILABLE S UNAVAI LABLE TODAYS OPTIONS [id number] SP [id number] TODAYS OPTIONS/BOTSWANAN P [id number] S [id number] TODAYS OPTION [id number] SP [id number] SP [id number] Problems, Conditions, and Diagnoses Code Display Name Description Problem Type Effective Dates Data Source(s) R31.0 Gross hematuria Gross hematuria Problem 06/02/2020 12:0 0:00 AM EST eCW1 ([facility]) Z79.899 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 O THER LINE FIXER (CURRENT) DRUG THERAPY Diagnosis 02/20/2020 02:33:00 PM [facility] Z79.82 residential (current) use of aspirin LINE FIXER (CU RRENT) USE OF ASPIRIN Diagnosis 02/20/2020 02:33:00 PM [facility] Z53.20 Procedure and treatment not carried out because of patient's decision for unspecified reasons PROC/TRTMT NOT CRD OUT BEC PT DECISION FOR UNSP RE Debbie gnosis 02/20/2020 02:33:00 PM [facility] I10 Essential (primary) hypertension ESSENTIAL (PRIMARY) H YPERTENSION Diagnosis 02/20/2020 02:33:00 PM [facility] R42 Dizziness and giddiness DIZZINESS AND GIDDINESS Diagno sis 02/20/2020 02:33:00 PM [facility] Surgeries/Procedures Procedure Description Date Indications Data Source(s) KIMBERLEY, GIORGIO* 08/06/2019 12:00:00 AM EST eCW1 ([facility]) Results ID Date Data Source URINE CULTURE 06/03/2020 02:54:05 AM EST eCW1 ([facility]) Name Value Range Interpretation Code Description Data Cinthya rce(s) Supporting Document(s) Laboratory studies (set) URINE CULTU RE eCW1 ([facility]) ID Date Data Source UA URINALYSIS 06/03/2020 02:53:55 AM EST eCW1 ([facility]) Name Value Range Interpretation Code Description Data Cinthya rce(s) Supporting Document(s) Laboratory studies (set) UA URINALYS IS eCW1 ([facility]) ID Date Data Source [id number] 02/21/2020 11:55:00 AM EDT [facility] Patient: DAVID MCKENNA Observation Re port - Physicians/Mid Levels [facility].VisitID: [id number] [place] [address] [phone], MRegistration Date/Time: 02/20/2020 13:11 Weight:79.3 kg (S). Height/Length:70 inches (S). BMI:25.1 PAST HISTORYProblems:Corneal Abrasion.Prostate Cancer.Thyroid disease-low.Sick Contact [Resolved].Pharyngitis [Resolved].URI [Resolved]. Additional Surgeries:no known surgeries. Medications:Multivitamins Oral, last dose 02/19/20.Aspirin Oral 1 tablet, daily, last dose 02/19/20.Synthroid Oral 75 mcg, daily, last dose 02/20/20.Vitamin D Oral 1 tablet, daily, last dose 02/19/20. Allergies:Ragweed- snezze. FAMILY HISTORYNo significant family medical history. (Electronically signed by Jeana Pacheco P.A. 02/20/2020 15:27) Addenda for DAVID MCKENNA VisitID: [id number] Date: 02/20/2020 02/21/2020 11:52LWBS/LWBT/AMA??? follow-up Spoke to patient's who states that he was doing better, tired today but at work. Encouraged to return to ED with any further complications/concerns. (Electronically signed by Fadumo Boyer R.N. 02/21/2020 11:52) Name Value Range Interpretation Code Description Data [facility] rce(s) Supporting Document(s) ID Date Data Source [id number] 02/20/2020 03:29:00 PM EDT [facility] Patient: DAVID MCKENNA Observation Re port - Physicians/Mid Levels [facility].VisitID: [id number] [place] [address] [phone], MRegistration Date/Time: 02/20/2020 13:11 Weight:79.3 kg (S). Height/Length:70 inches (S). BMI:25.1 PAST HISTORYProblems:Corneal Abrasion.Prostate Cancer.Thyroid disease-low.Sick Contact [Resolved].Pharyngitis [Resolved].URI [Resolved]. Additional Surgeries:no known surgeries. Medications:Multivitamins Oral, last dose 02/19/20.Aspirin Oral 1 tablet, daily, last dose 02/19/20.Synthroid Oral 75 mcg, daily, last dose 02/20/20.Vitamin D Oral 1 tablet, daily, last dose 02/19/20. Allergies:Ragweed- snezze. FAMILY HISTORYNo significant family medical history. (Electronically signed by Jeana Pacheco P.A. 02/20/2020 15:27) Name Value Range Interpretation Code Description Data [facility](s) Supporting Document(s) ID Date Data Source [id number] 02/20/2020 02:44:00 PM EDT [facility] TSYSORDER [id number] Name Value Range Interpretation Code Description Data [facility](s) Supporting Document(s) URINE COLOR. [facility] URINE APPEARANCE CLEAR [facility] SPECIFIC GRAVITY,URINE 1.015 1.001-1.035 [facility] URINE LEUKOCYTE ESTERASE NEGATIVE NEGATIVE [facility] URINE NITRATE NEGATIVE NEGATIVE [facility] PH,URINE 5.5 5.0-9.0 [facility] URINE PROTEIN NEGATIVE mg/dL NEGATIVE [facility] URINE GLUCOSE (UA) NEGATIVE mg/dL NEGATIVE [facility] URINE KETONE NEGATIVE mg/dL NEGATIVE [facility] URINE UROBILINOGEN NORMAL(0.2-1) mg/dL 0-1 [facility] URINE BILIRUBIN NEGATIVE NEGATIVE [facility] URINE BLOOD NEGATIVE NEGATIVE [facility] ID Date Data Source [id number] 02/20/2020 02:36:00 PM EDT [facility] TSYSORDER [id number] Name Value Range Interpretation Code Description Data Cinthya rce(s) Supporting Document(s) MAGNESIUM 2.1 mg/dL 1.8-2.4 [facility] ID Date Data Source [id number] 02/20/2020 02:36:00 PM EDT [facility] TSYSORDER [id number] Name Value Range Interpretation Code Description Data Cinthya rce(s) Supporting Document(s) LIPASE 183 U/L 73-393 [facility] ID Date Data Source [id number] 02/20/2020 02:36:00 PM EDT [facility] TSYSORDER [id number] Name Value Range Interpretation Code Description Data Cinthya rce(s) Supporting Document(s) GLUCOSE 100 mg/dL 74-106 [facility] BLOOD UREA NITROGEN 12 mg/dL 7-18 [facility] CREATININE 0.9 mg/dL 0.7-1.3 [facility] SODIUM 137 mmol/L 136-145 [facility] POTASSIUM 4.4 mmol/L 3.5-5.1 [facility] CHLORIDE 100 mmol/L 98-107 [facility] CO2 30 mmol/L 21-32 [facility] CALCIUM 9.0 mg/dL 8.5-10.1 [facility] ANION GAP 7.0 mmol/L 5-12 [facility] GLOMERULAR FILTRATION RATE 82 mL/min [facility] GFR IS CALCULATED IN mL/min/1.73m2 ARI L FUNCTION: >90MILDLY DECREASED: 60-89MILDY TO MODERATELY DECREASED: 45-59 MODERATELY TO SEVERELY DECREASED: 30-44SEVERELY DECREASED: 15-29RENAL FAILURE: <15 AST 27 U/L 15-37 [facility] ALT 31 U/L 12-78 [facility] ALKALINE PHOSPHATASE 83 U/L 46-116 [facility] TOTAL BILIRUBIN 0.4 mg/dL 0.2-1.0 [facility] TOTAL PROTEIN 7.5 g/dl 6.4-8.2 [facility] ALBUMIN 3.8 gm/dL 3.4-5.0 [facility] ID Date Data Source [id number] 02/20/2020 02:35:00 PM EDT [facility] TSYSORDER [id number] Name Value Range Interpretation Code Description Data Cinthya rce(s) Supporting Document(s) PARTIAL THROMBOPLASTIN TIME 24.2 SECONDS 21.4-30.2 [facility] ID Date Data Source [id number] 02/20/2020 02:35:00 PM EDT [facility] TSYSORDER [id number] Name Value Range Interpretation Code Description Data Cinthya rce(s) Supporting Document(s) PROTHROMBIN TIME (PATIENT) 10.3 SECONDS 9.2-11.6 [facility] INR 0.99 0.87-1.06 [facility] ID Date Data Source [id number] 02/20/2020 02:17:00 PM EDT [facility] TSYSORDER [id number] Name Value Range Interpretation Code Description Data Cinthya rce(s) Supporting Document(s) WHITE BLOOD COUNT 6.1 K/mm3 4.0-10.0 [facility] RED BLOOD COUNT 4.85 M/mm3 4.50-6.00 [facility] HEMOGLOBIN 13.3 gm/dL 14.0-18.0 L [facility] HEMATOCRIT 39.7 % 42.0-54.0 L [facility] MEAN CELL VOLUME 81.9 fl 80-96 [facility] MEAN CORPUSCULAR HEMOGLOBIN 27.4 pg 27.0-31.0 [facility] MEAN CORPUSCULAR HGB CONC 33.5 g/dl 32.0-36.0 [facility] RED CELL DISTRIBUTION WIDTH 14.4 % 10.0-14.5 [facility] PLATELET COUNT 191 K/mm3 172-450 [facility] MEAN PLATELET VOLUME 9.5 fl 9.0-13.0 [facility]ital GRAN % 78.4 % 50-80.0 [facility] IG% 0.2 % 0.0-0.2 [facility] LYMPH % 15.0 % 25.0-50.0 L [facility] MONO % 5.3 % 2.0-10.0 [facility] EOS % 0.8 % 0-5.0 [facility] BASO % 0.3 % 0.0-2.0 [facility] GRAN # 4.8 K/mm3 2.0-8.00 [facility] IG# 0.0 K/mm3 0.0-0.2 [facility] LYMPH # 0.9 K/mm3 1.0-5.0 L [facility] MONO # 0.3 K/mm3 0.10-1.20 [facility] EOS # 0.1 K/mm3 0.0-0.5 [facility] BASO # 0.0 K/mm3 0.0-0.2 [facility] ID Date Data Source [id number] 08/06/2019 07:50:00 AM EST [facility] ([facility] Name Value Range Interpretation Code Description Data Cinthya rce(s) Supporting Document(s) Free T4 0.95 ng/dL 0.76-1.46 [facility] ([facility] Thyroid Stimulating Hormone 2.090 uIU/ML 0.358-3.740 [facility] ([facility] ID Date Data Source [id number] 08/06/2019 07:50:00 AM EST [facility] ([facility] Name Value Range Interpretation Code Description Data Cinthya rce(s) Supporting Document(s) Hemoglobin A1c 6.1 % [facility] ([facility] REFERENCE RANGES: 4.5-5.6% NORMAL 5.7-6.4% SUGGESTS IMPAIRED GLUCOSE META BOLISM >= 6.5% ABNORMAL Estimated Average Glucose 128 mg/dL 60-110 [facility] ([facility] ID Date Data Source [id number] 08/06/2019 07:50:00 AM EST [facility] ([facility] Name Value Range Interpretation Code Description Data Cinthya rce(s) Supporting Document(s) Calcidiol [Mass/volume] in Serum or Plasma 26.8 ng/mL 30.0-100.0 [facility] ([facility] ID Date Data Source [id number] 08/06/2019 07:50:00 AM EST [facility] ([facility] Name Value Range Interpretation Code Description Data Cinthya rce(s) Supporting Document(s) Glucose, Fasting 92 mg/dL 70-100 [facility] ([facility] Creatinine For GFR 0.96 mg/dL 0.70-1.30 [facility] ([facility] Blood Urea Nitrogen 16 mg/dL 7-18 [facility] ([facility] Glomerular Filtration Rate > 60.0 [facility] ([facility] <content>Units are mL/min/1.73 m2</content>
<content></content>
<content>Chronic Kidney Disease Staging per NKF:</content>
<content></content>
<content>Stage I & II GFR >=60 Normal to Mildly Decreased</content>
<content>Stage III GFR 30- 59 Moderately Decreased</content>
<content>Stage IV GFR 15-29 Severely Decreased</content>
<content>Stage V GFR <15 Very Little GFR Left</content>
<content>ESRD GFR <15 on CAR DROPPER</content>
<content></content> Sodium Level 140 meq/L 136-145 [facility] ([facility] Chloride Level 104 meq/L 98-107 [facility] Potassium Serum 4.2 meq/L 3.5-5.1 [facility] ([facility] Carbon Dioxide Level 28 meq/L 21-32 [facility] ([facility] Anion Gap 8 meq/L 8-16 [facility] Calcium Level 9.1 mg/dL 8.8-10.2 [facility] ([facility] Ast/Sgot 19 U/L 7-37 [facility] Alkaline Phosphatase 90 U/L 45-117 [facility] Alt/SGPT 25 U/L 12-78 [facility] Albumin 3.5 GM/DL 3.2-5.2 [facility] Bilirubin,Total 0.4 mg/dL 0.2-1.0 [facility] ([facility] Total Protein 7.4 GM/DL 6.4-8.2 [facility] ([facility] Albumin/Globulin Ratio 0.90 1.00-1.93 [facility] ([facility] ID Date Data Source [id number] 08/06/2019 07:50:00 AM EST [facility] ([facility] Name Value Range Interpretation Code Description Data Cinthya rce(s) Supporting Document(s) Cholesterol Level 261 mg/dL [facility] ([facility] Triglycerides Level 221 mg/dL [facility] ([facility] LDL Cholesterol 167 mg/dL [facility] Non-HDL-C 211 mg/dL [facility] HDL Cholesterol 50 mg/dL [facility] Cholesterol Risk Ratio 5.220 MEDENT ([facility] Procedure Social History Code Duration Value Status Description Data Source(s ) Smoking 08/06/2020 12:00:00 AM EST Patient has never smoked co mpleted Patient has never smoked MEDENT ([facility], [facility]) Smoking 06/02/2020 12:00:00 AM EST Never Smoker completed Never S moker eCW1 ([facility]) Smoking 06/02/2020 12:00:00 AM EST Never Smoker completed Never S moker eCW1 ([facility]) Smoking 08/12/2019 12:00:00 AM EST Patient has never smoked co mpleted Patient has never smoked MEDENT ([facility] Vital Signs ID Date Data Source UNK Name Value Range Interpretation Code Description Data Source(s) Body mass index (BMI) [Ratio] 25.8 kg/m2 25.8 k g/m2 MEDENT ([facility], [facility]) Body height 70 [in_i] 70 [in_i] MEDENT ([facility]) 5'10" Body weight 180.00 [lb_av] 180.00 [lb_av] MEDEN T ([facility], [facility]) Body temperature 97.8 [degF] 97.8 [degF] MEDENT ([facility]) Oxygen saturation in Arterial blood by Pulse oximetry 97 % 97 % MEDENT ([facility]) Respiratory rate 12 /min 12 /min MEDENT ( [facility]) Heart rate 85 /min 85 /min MEDENT ([facility]) Diastolic blood pressure 79 mm[Hg] 79 mm[Hg] MEDENT ([facility]) Systolic blood pressure 156 mm[Hg] 156 mm[Hg] M EDENT ([facility]) Diastolic blood pressure mm[Hg] eCW1 ([facility]) Systolic blood pressure 138 mm[Hg] 138 mm[Hg] e CW1 ([facility]) Body temperature 96.6 [degF] 96.6 [degF] eCW1 ( [facility]) Respiratory rate 17 /min 17 /min eCW1 ([facility]) Heart rate 86 /min 86 /min eCW1 ([facility]) Body mass index (BMI) [Ratio] 25.97 kg/m2 25.97 kg/m2 eC1 ([facility]) Body height 70 [in_i] 70 [in_i] eCW1 ([facility]) Body weight 181 [lb_av] 181 [lb_av] eCW1 ([facility]) Body mass index (BMI) [Ratio] 26.7 kg/m2 26.7 k g/m2 MEDENT ([facility] Oxygen saturation in Arterial blood by Pulse oximetry 95 % 95 % MEDENT ([facility] Body weight 178.25 [lb_av] 178.25 [lb_av] MEDEN T ([facility] Body height 68.50 [in_i] 68.50 [in_i] MEDENT ([facility] 5'8.50" Respiratory rate 16 /min 16 /min MEDENT ( [facility] Body temperature 97.9 [degF] 97.9 [degF] MEDENT ([facility] Heart rate 69 /min 69 /min MED[facility] ([facility] Diastolic blood pressure 80 mm[Hg] 80 mm[Hg] MEDENT ([facility] Systolic blood pressure 156 mm[Hg] 156 mm[Hg] M EDENT ([facility] Diastolic blood pressure 78 mm[Hg] 78 mm[Hg] MED[facility] ([facility] Systolic blood pressure 161 mm[Hg] 161 mm[Hg] M EDENT ([facility] Systolic blood pressure 154 mm[Hg] 154 mm[Hg] M EDENT ([facility] Recheck Diastolic blood pressure 82 mm[Hg] 82 mm[Hg] MEDENT ([facility] Systolic blood pressure 152 mm[Hg] 152 mm[Hg] M EDENT ([facility] Body mass index (BMI) [Ratio] 27.7 kg/m2 27.7 k g/m2 MED[facility] ([facility] Oxygen saturation in Arterial blood by Pulse oximetry 97 % 97 % MED[facility] ([facility] Body weight 185.00 [lb_av] 185.00 [lb_av] MEDEN T ([facility] Body height 68.50 [in_i] 68.50 [in_i] MEDENT ([facility] 5'8.50" Respiratory rate 16 /min 16 /min MEDENT ( [facility] Body temperature 97.1 [degF] 97.1 [degF] MED[facility] ([facility] Heart rate 75 /min 75 /min MED[facility] ([facility] Diastolic blood pressure 82 mm[Hg] 82 mm[Hg] MEDENT ([facility] Recheck
--- OUTSIDE RECORDS SUMMARY | 2020-08-20 07:04 | CCD ---
Author Author [facility] [employer] Organization [facility] [employer] Address Unknown Phone Unavailable Care Team Providers Care Physical Therapy Assistant Instructor Name Role Phone Carlyle Xander Unavailable PROBLEMS Type Condition ICD9-CM Code [id number] Code Onset Dates Condition S tatus SNOMED Code Notes Problem Preop testing Z01.818 Active 203314591 Problem Gross hematuria R31.0 Active 306497350 Problem Prostate cancer C61 Active 467909272 ALLERGIES No Known Allergies ENCOUNTERS from 1940 to 2020-06-08 Encounter Location Date Provider Diagnosis [facility] [address] [place] [address] May Xander Tadeo IMMUNIZATIONS No Information SOCIAL HISTORY Tobacco Use: Social History Observation Description Date Details (start date - stop date) Never Smoker Sex Assigned At : Social History Observation Description Sex Assigned At Unknown Language: Question Answer Notes Languages spoken: Citizen Of [place] Pentecostalism: Question Answer Notes Pentecostalism No latter day beliefs that would impact health care. 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 Hospitalization History dizziness 2016 Goals Section No Information Health Concerns No Information MEDICAL EQUIPMENT No Information MENTAL STATUS No Information FUNCTIONAL STATUS No Information ASSESSMENTS No Information PLAN OF TREATMENT Next Appt Details Provider Name:Xander Tadeo, 01:30:00 PM, [address], [place], [address], Insurance Providers Payer Name Payer Address Payer Phone Insured Name Patient Relati onship to Insured Coverage Start Date Coverage End Date MEDICARE BLUE PPO 306 [facility] BLUE [id number] [facility] OPTIONS [facility] CLAIM DIV [id number] [facility] [id number] DAVID MCKENNA
[2020-08-20] MEDS ORDERED: amLODIPine 5 MG TAB PO ONE (08:00)
[2020-08-20] MEDS ORDERED: ACETAMINOPHEN 500 MG TAB PO ONE (08:00)
[2020-08-20 08:01] VITALS: BP 183/87
[2020-08-20 08:01] LABS: BASO % 0.4 % (0.0-1.0); EOS # 0.2 10^3/uL (0.0-0.5); EOS % 3.1 % (0.0-3.0); HEMATOCRIT 40.5 % (42.0-52.0); HEMOGLOBIN 13.2 g/dl (13.5-17.5); LYMPH # 1.1 10^3/uL (1.5-5.0); LYMPH % 22.5 % (24.0-44.0); MEAN CORPUSCULAR HEMOGLOBIN 27.6 pg (27.0-33.0); MEAN CORPUSCULAR HGB CONC 32.6 g/dl (32.0-36.5); MEAN CORPUSCULAR VOLUME 84.6 fl (80.0-96.0); MONO # 0.3 10^3/uL (0.0-0.8); MONO % 7.1 % (0.0-5.0); NEUTROPHILS # 3.2 10^3/uL (1.5-8.5); NEUTROPHILS % 66.5 % (36.0-66.0); PLATELET COUNT, AUTOMATED 188 10^3/uL (150-450); RED BLOOD COUNT 4.79 10^6/uL (4.30-6.10); WHITE BLOOD COUNT 4.8 10^3/uL (4.0-10.0)
--- NOTE | 2020-08-20 08:03 | ECGEPIP ---
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
--- OUTSIDE RECORDS SUMMARY | 2020-08-20 08:26 | CCD ---
Author Author [facility] Organization [facility] Address Unknown Phone Unavailable Care Team Providers Care Systematic Theology Professor Name Role Phone PetrDominick soto Alberta PA-C Unavailable Unavailabl e Petrancosta, Itawamba Alberta PA-C Unavailable Unavailabl e Petrancosta, [place] Alberta PA-C Unavailable Unavailabl e Petrancosta, [place]amba Alberta PA-C Unavailable Unavailabl e Petrancosta, [place]awamba Alberta PA-C Unavailable Unavailabl e Petrancosta, [place] Alberta PA-C Unavailable Unavailabl e Petrancosta, [place]awamba Alberta PA-C Unavailable Unavailabl e Petrancosta, Itawamba Alberta PA-C Unavailable Unavailabl e Petrancosta, Itawamba Alberta PA-C Unavailable Unavailabl e Petrancosta, Itawamba Alberta PA-C Unavailable Unavailabl e Petrancosta, Itawamba Alberta PA-C Unavailable Unavailabl e Petrancosta, Itawamba Alberta PA-C Unavailable Unavailabl e Petrancosta, Itawamba Alberta PA-C Unavailable Unavailabl e Petrancosta, Itawamba Alberta PA-C Unavailable Unavailabl e Petrancosta, Itawamba Alberta PA-C Unavailable Unavailabl e Petrancosta, Itawamba Alberta PA-C Unavailable Unavailabl e Petrancosta, Itawamba Alberta PA-C Unavailable Unavailabl e Petrancosta, Itawamba Alberta PA-C Unavailable Unavailabl e Petrancosta, Itawamba Alberta PA-C Unavailable Unavailabl e Petrancosta, Itawamba Alberta PA-C Unavailable Unavailabl e Petrancosta, Itawamba Alberta PA-C Unavailable Unavailabl e Petrancosta, Itawamba Alberta PA-C Unavailable Unavailabl e Petrancosta, Itawamba Alberta PA-C Unavailable Unavailabl e Dominique, Zulema PIT SUPERVISOR Unavailable Unavailable Dominique, Zulema PIT SUPERVISOR Unavailable Unavailable Dominique, Zulema PIT SUPERVISOR Unavailable Unavailable Dominique, Zulema PIT SUPERVISOR Unavailable Unavailable Dominique, Zulema PIT SUPERVISOR Unavailable Unavailable Dominique, Zulema PIT SUPERVISOR Unavailable Unavailable Dominique, Zulema PIT SUPERVISOR Unavailable Unavailable Dominique, Zulema PIT SUPERVISOR Unavailable Unavailable Dominique, Zulema PIT SUPERVISOR Unavailable Unavailable Dominique, Zulema PIT SUPERVISOR Unavailable Unavailable Dominique, Zulema PIT SUPERVISOR Unavailable Unavailable MARILEE, RON JEANA PA Unavailable [...] is protected by Article 27-F of the [facility] Public Health law. If you continue you may have access to information: Regarding HIV / AIDS; Provided by facilities licensed or operated by the [facility] Office of Mental Health; or Provided by the [facility] Office for People With Developmental Disabilities. If such information is present, then the following [facility] mandated warning applies: This information has been [...] law may result in a fine or residential sentence or both. A general authorization for the release of medical or other information is NOT sufficient authorization for further disc losure. Family History Family Member Name Family Member Gender Family Member Status Date o f Status Description Data Source(s) Unknown Unknown Problem [facility] ([facility] Unknown Unknown Problem [facility] ([facility] Unknown Male Problem [facility] ([facility] () - at age 76 Unknown Unknown Problem [facility] ([facility] Encounters Encounter Providers Location Date Indications Data Source(s ) Outpatient Attender: Zulema marcos 08/06/2020 04:20:00 PM EST [facility] [place] [address] [facility] [address] 06/08/2020 12:00:00 AM EST eCW1 ([facility]) Outpatient [address] [facility] [address] 06/02/2020 12:00:00 AM EST eCW1 ([facility]) Outpatient Attender: Alberta Forte PA-C Main Office 03/04/2020 03:15:00 PM EDT [facility] ([facility] Emergency Attender: JEANA MONCADA EMERGENCY ROOM-ER 02/20/2020 02:33:00 PM EDT - 02/20/2020 03:00:00 PM EDT [facility] Patient discharged. Outpatient Attender: Alberta Forte PA-C Main Office 08/12/2019 01:00:00 PM EST [facility] ([facility] [address] [place] [address] 08/09/2019 12:00:00 AM EST eCW1 ([facility]) [address] [address] 08/06/2019 12:00:00 AM EST eCW1 ([facility]) Immunizations Vaccine Date Status Description Data Source(s) INFLUENZA VACCINE QUADRIVALENT (65 YR UP)/MF59 C.1/PF 06/17/2020 12:00:00 AM EST completed [facility] Medications Medication Brand Name Start Date Product Form Dose Route Admi nistrative Instructions Pharmacy Instructions Status Indications Reaction Description Data Source(s) Amoxicillin 875 MG Oral Tablet Amoxicillin 08/06/2020 12:00:00 AM EST ORAL active MED[facility] ([facility]) Loratadine 10 MG Oral Tablet Loratadine 08/06/2020 12:00:00 AM EST active MEDENT ([facility]) Insurance Providers Payer name Policy type / Coverage type Policy ID Covered alliance party ID Covered alliance party's relationship to espana Policy [place] Plan Information MEDICARE BLUE PPO 306 [id number] SP [id number] [employer] OPTIONS [id number] SP [id number] MEDICARE [id number] SP [id number] [id number] S [id number] [employer] C[employer] OPTIONS [id number] S [id number] [facility] DIVISION [id number] S [id number] [facility] [id number] S [id number] AAR HE[employer] CARE OPTIONS [id number] S [id number] [place] MEDICARE DIVISION [id number] S [id number] [place]IC[place] [id number] S [id number] ANSI-Commercial [id number] ANSI-Medicare Part B [id number] ANSI-Commercial [id number] ANSI-Medicare Part B [id number] [facility] Health Care Options [facility] Part B [id number] Self [id number] Medicare Natl Gov't Servi Medicare Primary [id number] Self [id number] [facility] Health Care Options [facility] Part B [id number] Self [id number] Medicare Natl Gov't Servi Medicare Primary [id number] Self [id number] ANSI-Commercial [id number] ANSI-Medicare Part B [id number] ANSI-Medicare Part B [id number] ANSI-Commercial [id number] [facility] Options Medigap Part B [id number] Self [id number] Medicare Natl Gov't Serv Medicare Primary [id number] Self [id number] [facility] Medigap Part B [id number] Self [id number] [place] Primary [id number] Self [id number] MEDICARE [id number] SP [id number] A ANSI-Commercial [id number] ANSI-Medicare Part B [id number] ANSI-Medicare Part B [id number] ANSI-Commercial [id number] [facility] Medigap Part B [id number] Self [id number] Medicare [place] Primary [id number] Self [id number] [facility] [id number] S [id number] [facility] Medigap Part B [id number] Self [id number] Medicare [place] Medicare Primary [id number] Self [id number] MEDICARE BLUE PPO 306 [id number] SP [id number] [facility] Options Medigap Part B [id number] Self [id number] Medicare [place] Primary [id number] Self [id number] MEDICARE BLUE PPO 306 [id number] SP [id number] BCBS Medicare Commercial [id number] Self [id number] MEDICARE BLUE PPO 306 [id number] SP [id number] MEDICARE BLUE PPO 306 [id number] SP [id number] BCBS Medicare Commercial [id number] Self [id number] BCBS Medicare Commercial [id number] Self [id number] [id number] BCBS Medicare Commercial [id number] Self [id number] [id number] MEDICARE BLUE PPO 306 [id number] SP [id number] [facility] [place] (HMO) Self Medicare Advantage BCBS Medigap Part B Self [place] Prog-Today's Opt Commercial Self BCBS OF [place] [id number] S [id number] BCBS EMPIRE BC UNAVAILABLE S UNAVAI LABLE TODAYS OPTIONS [id number] SP [id number] TODAYS OPTIONS/[place] P [id number] S [id number] TODAYS OPTION [id number] SP [id number] SP [id number] Problems, Conditions, and Diagnoses Code Display Name Description Problem Type Effective Dates Data Source(s) R31.0 Gross hematuria Gross hematuria Problem 06/02/2020 12:0 0:00 AM EST eCW1 ([facility]) Z79.899 Other senior care (current) drug therapy 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 Diagnosis 02/20/2020 02:33:00 PM [facility] 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 (CU RRENT) USE OF ASPIRIN Diagnosis 02/20/2020 02:33:00 PM [facility] Z53.20 Procedure and treatment not carried out because of patient's decision for unspecified reasons PROC/TRTMT NOT CRD OUT BEC PT DECISION FOR UNSP RE Debbie gnosis 02/20/2020 02:33:00 PM [facility] I10 Essential (primary) hypertension ESSENTIAL (PRIMARY) H YPERTENSION Diagnosis 02/20/2020 02:33:00 PM [facility] R42 Dizziness and giddiness DIZZINESS AND GIDDINESS Diagno sis 02/20/2020 02:33:00 PM [facility] Surgeries/Procedures Procedure Description Date Indications Data Source(s) GIORGIO CHU* 08/06/2019 12:00:00 AM EST eCW1 ([facility]) Results ID Date Data Source URINE CULTURE 06/03/2020 02:54:05 AM EST eCW1 ([facility]) Name Value Range Interpretation Code Description Data Cinthya rce(s) Supporting Document(s) Laboratory studies (set) URINE CULTU RE eCW1 ([facility]) ID Date Data Source UA URINALYSIS 06/03/2020 02:53:55 AM EST eCW1 ([facility]) Name Value Range Interpretation Code Description Data Cinthya rce(s) Supporting Document(s) Laboratory studies (set) UA URINALYS IS eCW1 ([facility]) ID Date Data Source [id number] 02/21/2020 11:55:00 AM EDT [facility] Patient: DAVID MCKENNA Observation Re port - Physicians/Mid Levels [facility].VisitID: [id number] [place] [address] [phone], MRegistration Date/Time: 02/20/2020 13:11 Weight:79.3 kg (S). [...] 02/20/2020 15:27) Addenda for DAVID MCKENNA VisitID: [id number] Date: 02/20/2020 02/21/2020 11:52LWBS/LWBT/AMA??? follow-up Spoke to patient's who states that he was doing better, tired today but at work. Encouraged to return to ED with any further complications/concerns. (Electronically signed by Fadumo Boyer R.N. 02/21/2020 11:52) Name Value Range Interpretation Code Description Data [facility] rce(s) Supporting Document(s) ID Date Data Source [id number] 02/20/2020 03:29:00 PM EDT [facility] Patient: DAVID MCKENNA Observation Re port - Physicians/Mid Levels [facility].VisitID: [id number] [place] [address] [phone], MRegistration Date/Time: 02/20/2020 13:11 Weight:79.3 kg (S). [...] Name Value Range Interpretation Code Description Data [facility] rce(s) Supporting Document(s) ID Date Data Source [id number] 02/20/2020 02:44:00 PM EDT [facility] TSYSORDER [id number] Name Value Range Interpretation Code Description Data [facility] Supporting Document(s) URINE COLOR. [facility] URINE APPEARANCE CLEAR [facility] SPECIFIC GRAVITY,URINE 1.015 1.001-1.035 [facility] URINE LEUKOCYTE ESTERASE NEGATIVE NEGATIVE [facility] URINE NITRATE NEGATIVE NEGATIVE [facility] PH,URINE 5.5 5.0-9.0 [facility] URINE PROTEIN NEGATIVE mg/dL [facility] GLUCOSE (UA) NEGATIVE mg/dL NEGATIVE [facility] URINE KETONE NEGATIVE mg/dL [facility]GATIVE [facility] UROBILINOGEN NORMAL(0.2-1) mg/dL 0-1 R [facility] URINE BILIRUBIN NEGATIVE NEGATIVE [facility] URINE BLOOD NEGATIVE NEGATIVE [facility] ID Date Data Source [id number] 02/20/2020 02:36:00 PM EDT [facility] TSYSORDER [id number] Name Value Range Interpretation Code Description Data Cinthya rce(s) Supporting Document(s) MAGNESIUM 2.1 mg/dL 1.8-2.4 [facility] ID Date Data Source [id number] 02/20/2020 02:36:00 PM EDT [facility] [id number] Name Value Range Interpretation Code Description Data Cinthya rce(s) Supporting Document(s) LIPASE 183 U/L 73-393 [facility] ID Date Data Source [id number] 02/20/2020 02:36:00 PM EDT [facility] TSYSORDER [id number] Name Value Range Interpretation Code Description Data Cinthya rce(s) Supporting Document(s) GLUCOSE 100 mg/dL 74-106 [facility] BLOOD UREA NITROGEN 12 mg/dL 7-18 [facility] CREATININE 0.9 mg/dL 0.7-1.3 [facility] SODIUM 137 mmol/L 136-145 [facility] POTASSIUM 4.4 mmol/L 3.5-5.1 [facility] CHLORIDE 100 mmol/L 98-107 [facility] CO2 30 mmol/L 21-32 [facility] CALCIUM 9.0 mg/dL 8.5-10.1 [facility] ANION GAP 7.0 mmol/L 5-12 [facility] GLOMERULAR FILTRATION RATE 82 mL/min [facility] GFR IS CALCULATED IN mL/min/1.73m2 ARI L FUNCTION: >90MILDLY DECREASED: 60-89MILDY TO MODERATELY DECREASED: 45-59 MODERATELY TO SEVERELY DECREASED: 30-44SEVERELY DECREASED: 15-29RENAL FAILURE: <15 AST 27 U/L 15-37 [facility] ALT 31 U/L 12-78 [facility] ALKALINE PHOSPHATASE 83 U/L 46-116 [facility] pital TOTAL BILIRUBIN 0.4 mg/dL 0.2-1.0 [facility] TOTAL PROTEIN 7.5 g/dl 6.4-8.2 [facility] ALBUMIN 3.8 gm/dL 3.4-5.0 [facility] ID Date Data Source [id number] 02/20/2020 02:35:00 PM EDT [facility] TSYSORDER [id number] Name Value Range Interpretation Code Description Data Cinthya rce(s) Supporting Document(s) PARTIAL THROMBOPLASTIN TIME 24.2 SECONDS 21.4-30.2 [facility] ID Date Data Source [id number] 02/20/2020 02:35:00 PM EDT [facility] [id number] Name Value Range Interpretation Code Description Data Cinthya rce(s) Supporting Document(s) PROTHROMBIN TIME (PATIENT) 10.3 SECONDS 9.2-11.6 [facility] INR 0.99 0.87-1.06 [facility] ID Date Data Source [id number] 02/20/2020 02:17:00 PM EDT [facility] TSYSORDER [id number] Name Value Range Interpretation Code Description Data Cinthya rce(s) Supporting Document(s) WHITE BLOOD COUNT 6.1 K/mm3 4.0-10.[address] [facility] al RED BLOOD COUNT 4.85 M/mm3 4.50-6.00 [facility] HEMOGLOBIN 13.3 gm/dL 14.0-18.0 L [facility] HEMATOCRIT 39.7 % 42.0-54.0 [facility] MEAN CELL VOLUME 81.9 fl 80-96 [facility] MEAN CORPUSCULAR HEMOGLOBIN 27.4 pg 27.0-31.0 [facility] MEAN CORPUSCULAR HGB CONC 33.5 g/dl 32.0-36.0 [facility] RED CELL DISTRIBUTION WIDTH 14.4 % 10.0-14.5 [facility] PLATELET COUNT 191 K/mm3 172-450 [facility] MEAN PLATELET VOLUME 9.5 fl 9.0-13.0 [facility] pital GRAN % 78.4 % 50-80.0 [facility] IG% 0.2 % 0.0-0.2 [facility] LYMPH % 15.0 % 25.0-50.0 L [facility] MONO % 5.3 % 2.0-10.0 [facility] EOS % 0.8 % 0-5.0 [facility] BASO % 0.3 % 0.0-2.0 [facility] GRAN # 4.8 K/mm3 2.0-8.00 [facility] IG# 0.0 K/mm3 0.0-0.2 [facility] LYMPH # 0.9 K/mm3 1.0-5.0 L [facility] MONO # 0.3 K/mm3 0.10-1.20 [facility] EOS # 0.1 K/mm3 0.0-0.5 [facility] BASO # 0.0 K/mm3 0.0-0.2 [facility] ID Date Data Source [id number] 08/06/2019 07:50:00 AM EST [facility] ([facility] Name Value Range Interpretation Code Description Data Cinthya rce(s) Supporting Document(s) Free T4 0.95 ng/dL 0.76-1.46 [facility] ([facility] Thyroid Stimulating Hormone 2.090 uIU/ML 0.358-3.740 [facility] ([facility] ID Date Data Source [id number] 08/06/2019 07:50:00 AM EST [facility] ([facility] Name Value Range Interpretation Code Description Data Cinthya rce(s) Supporting Document(s) Hemoglobin A1c 6.1 % [facility] ([facility] REFERENCE RANGES: 4.5-5.6% NORMAL 5.7-6.4% SUGGESTS IMPAIRED GLUCOSE META BOLISM >= 6.5% ABNORMAL Estimated Average Glucose 128 mg/dL 60-110 [facility] ([facility] ID Date Data Source [id number] 08/06/2019 07:50:00 AM EST [facility] ([facility] Name Value Range Interpretation Code Description Data Cinthya rce(s) Supporting Document(s) Calcidiol [Mass/volume] in Serum or Plasma 26.8 ng/mL 30.0-100.0 [facility] ([facility] ID Date Data Source [id number] 08/06/2019 07:50:00 AM EST MED[facility] ([facility] [...] Little GFR Left</content>
<content>ESRD GFR <15 on CLERICAL MANAGER</content>
<content></content> Sodium Level 140 meq/L 136-145 MED[facility] [...] [facility] Albumin/Globulin Ratio 0.90 1.00-1.93 ME DENT ([facility] ID Date Data Source [id number] 08/06/2019 07:50:00 AM EST [facility] ([facility] Name Value Range Interpretation Code Description Data Cnithya rce(s) Supporting Document(s) Cholesterol Level 261 mg/dL [...] co mpleted Patient has never smoked MEDENT ([facility]) Smoking 06/02/2020 12:00:00 AM EST Never Smoker completed Never S moker eCW1 ([facility]) Smoking 06/02/2020 12:00:00 AM EST Never Smoker completed Never S moker eCW1 ([facility]) Smoking 08/12/2019 12:00:00 AM EST Patient has never smoked co mpleted Patient has never smoked [facility] ([facility] Vital Signs ID Date Data Source UNK Name Value Range Interpretation Code Description Data Source(s) Body mass index (BMI) [Ratio] 25.8 kg/m2 25.8 k g/m2 MEDENT ([facility]) Body height 70 [in_i] 70 [in_i] MEDENT ([facility]) 5'10" Body weight 180.00 [lb_av] 180.00 [lb_av] MEDEN T ([facility]) Body temperature 97.8 [degF] 97.8 [degF] MEDENT ([facility]) Oxygen saturation in Arterial blood by Pulse oximetry 97 % 97 % MEDENT ([facility]) Respiratory rate 12 /min 12 /min MEDENT ( [facility]) Heart rate 85 /min 85 /min MEDENT ([facility]) Diastolic blood pressure 79 mm[Hg] 79 mm[Hg] MEDENT ([facility]) Systolic blood pressure 156 mm[Hg] 156 mm[Hg] M EDENT ([facility]) Diastolic blood pressure mm[Hg] eCW1 ([facility]) Systolic blood pressure 138 mm[Hg] 138 mm[Hg] e CW1 ([facility]) Body temperature 96.6 [degF] 96.6 [degF] eCW1 ( [facility]) Respiratory rate 17 /min 17 /min eCW1 ([facility]) Heart rate 86 /min 86 /min eCW1 ([facility]) Body mass index (BMI) [Ratio] 25.97 kg/m2 25.97 kg/m2 eCW1 ([facility]) Body height 70 [in_i] 70 [in_i] eCW1 ([facility]) Body weight 181 [lb_av] 181 [lb_av] eCW1 ([facility]) Body mass index (BMI) [Ratio] 26.7 kg/m2 [...] pressure 78 mm[Hg] 78 mm[Hg] [facility] ([facility] Systolic blood pressure 161 mm[Hg] [...]
[2020-08-20 08:36] LABS: BLOOD UREA NITROGEN 11 MG/DL (7-18); CALCIUM LEVEL 8.8 MG/DL (8.8-10.2); CARBON DIOXIDE LEVEL 27 MEQ/L (21-32); CHLORIDE LEVEL 103 MEQ/L (98-107); CK-MB VALUE MASS 1.6 NG/ML (<3.6); CPK CREATINE PHOSPHOKINASE 90 U/L (39-308); CREATININE FOR GFR 0.93 MG/DL (0.70-1.30); GLOMERULAR FILTRATION RATE > 60.0 (>42); GLUCOSE, FASTING 100 MG/DL (70-100); MB/CK RELATIVE INDEX 1.78 (< OR =4); SODIUM LEVEL 140 MEQ/L (136-145); TROPONIN I < 0.02 NG/ML (< 0.10)
[2020-08-20] MEDS ORDERED: AMLO1TAB24 PO (08:49)
[2020-08-20 08:53] VITALS: BP 168/90
== END 2020-08-20 09:03 | disposition home or self-care (01) ==
LOC: M ED 06:57
DX: I10 Essential (primary) hypertension (principal); R94.31 Abnormal electrocardiogram [ECG] [EKG]; H92.09 Otalgia, unspecified ear; E03.9 Hypothyroidism, unspecified; Z79.899 Other long term (current) drug therapy

== ENCOUNTER 2020-09-01 14:21 | Emergency (ER) | payer MEDICARE ==
[~2020-09-01] VITALS: Ht 177.8 cm; Wt 83.6 kg
[~2020-09-01 14:21] MED LIST changes: +AMLO1TAB24 PO
--- OUTSIDE RECORDS SUMMARY | 2020-09-01 14:29 | CCD | Continuity of Care Document ---
Author Author Juan J MILLARD PA Organization Unknown Address [address] [place] [address] Phone [phone] Care Team Providers Care Medicine Technologist Name Role Phone Iraida Burr AUTM [phone] Nomi Triplett MD AUTM [phone] [facility] - [facility] AUTM [phone] [facility] - Physical Therapist AUTM [phone] [facility] - Otolaryngology AUTM [phone] [facility] - Urology AUTM [phone] [facility] - Surgery AUTM [phone] Fely Nance MD AUTM [phone] Problems Active Problems Provider Date Mixed hyperlipidemia Magan Dodson M.D. Onset: 01/03 Hypothyroidism Magan Dodson M.D. Onset: 2010 Essential hypertension Magan Dodson M.D. Onset: 09/2014 Testicular hypofunction Magan Dodson M.D. Onset: Vitamin D deficiency Magan Dodson M.D. Onset: 04/25 Essential hypertension Magan Dodson M.D. Onset: Social History Type Date Description Comments Sex Unknown Tobacco Use Start: Unknown Never Smoked Cigarettes Tobacco Use Start: Unknown Never Used Smokeless Tobacco ETOH Use Denies alcohol use Tobacco Use Start: Unknown Patient has never smoked Recreational Drug Use Denies Drug Use Smoking Status Reviewed: 08/26/20 Patient has never smoked Exercise Type/Frequency Exercises regularly Tattoo/Piercing none Sun Exposure Minimum amount of sun exposure Sun Exposure Does not use sunscreen Seat Belt/Car Seat Always uses seat belt Allergies, Adverse Reactions, Alerts Active Allergies Reaction Severity Comments Date NKDA 05/11/2005 Environmental pollen 09/15/2008 Medications Active Medications SIG Qnty Indications Ordering Provide r Date Flonase Allergy Relief 50mcg/Act Suspension one spray each nostril once daily 15.800ml H92.02 Lisseth Bruner M.D. 08/26/2020 Losartan Potassium 25mg Tablets 1 by mouth every day 30tabs I10 Lisseth Fajardo M.D. 021 Alprazolam 0.25mg Tablets 1 tab by mouth q day prn anxiety 30tabs I10 Lisseth Fajardo M.D. 021 Levothyroxine Sodium 75mcg Tablets 1 tab by mouth every day 90tabs Lisseth Fajardo M.D. 06/01 [place]-3 Fish Oil 1000mg Capsules one po qd Unknown Vitamin D 1000Unit Capsules 1 by mouth every day 60caps E55.9 Lisseth Fajardo M.D. 000 Icaps Capsules one po qd Unknown Multivitamin Men Tablets 1 by mouth every day Unknown Immunizations CPT Code Status Date Vaccine Lot # [id number] Refused 03/20/2019 Influenza Virus Vaccine, Quadrivalent,age 3 and up,multidose vial [id number] Refused 08/02/2018 Prevnar 13 For Adults [id number] Refused 08/02/2018 Pneumococcal Vaccine Vital Signs Date Vital Result Comment 08/26/2020 3:39pm BP Systolic 194 mmHg BP Diastolic 92 mmHg BP Systolic Recheck 185 mmHg BP Diastolic Recheck 89 mmHg Heart Rate 75 /min Body Temperature 97.1 F Respiratory Rate 15 /min Height 68.50 inches 5'8.50" Weight 185.00 lb O2 % BldC Oximetry 98 % Peak Expiratory Flow Rate 461 Estimated Peak Flow Rate [place] Body Weight 154 lb BMI (Body Mass Index) 27.7 kg/m2 03/04/2020 3:30pm BP Systolic 161 mmHg BP Diastolic 78 mmHg BP Systolic Recheck 156 mmHg BP Diastolic Recheck 80 mmHg Heart Rate 69 /min Body Temperature 97.9 F Respiratory Rate 16 /min Height 68.50 inches 5'8.50" Weight 178.25 lb O2 % BldC Oximetry 95 % Peak Expiratory Flow Rate 460 Estimated Peak Flow Rate [place] Body Weight 154 lb BMI (Body Mass Index) 26.7 kg/m2 Results Description No Information Available Procedures Description No Information Available Medical Devices Description No Information Available Encounters Type Date Location Provider Dx Diagnosis Office Visit 08/26/2020 3:30p Main Office Alberta Millard PA H92.02 Otalgia, left ear I10 Essential (primary) hyperten wendy F41.9 Anxiety disorder, unspecifie d Office Visit 03/04/2020 3:15p Main Office Alberta Millard PA Z00.00 Encntr for general adult medical exam w/o abnormal findings E78.2 Mixed hyperlipidemia I10 Essential (primary) hyperten wendy E03.9 Hypothyroidism, unspecified Assessments Date Code Description Provider 08/26/2020 H92.02 Otalgia, left ear Anastasiia Millard PA 08/26/2020 I10 Essential (primary) hypertension Alberta Millard PA 08/26/2020 F41.9 Anxiety disorder, unspecified Pe trancoAlberta rapp PA 03/04/2020 Z00.00 Encounter for genera l adult medical examination without abnormal findings Alberta Millard PA 03/04/2020 E78.2 Mixed hyperlipidemia Alberta Millard PA 03/04/2020 I10 Essential (primary) hypertension Alberta Millard PA 03/04/2020 E03.9 Hypothyroidism, unspecified Alberta Elaine PA Plan of Treatment Future Appointment(s):* 09/09/2020 3:30 pm - Alberta Millard PA at Main Office 08/26/2020 - Alberta Millard PA* H92.02 Otalgia, left ear* New Medication:* Flonase Allergy Relief 50 mcg/Act - one spray each nostril once daily * Comments:* some fluid in the middle ear without infectionflonase daily * I10 Essential (primary) hypertension* New Medication:* Losartan Potassium 25 mg - 1 by mouth every day * Alprazolam 0.25 mg - 1 tab by mouth q day prn anxiety * Comments:* BP elevated on several readings in ER , urgent care and in [facility] losartan * Follow up:* 2 weeks * F41.9 Anxiety disorder, unspecified Functional Status Functional Condition Comment Date Status Glasses reading Active Independent with all ADL's Activ e Independent with all IADL's Acti ve Mental Status Description No Information Available Referrals Description No Information Available
--- OUTSIDE RECORDS SUMMARY | 2020-09-01 14:29 | CCD | Continuity of Care Document ---
Author Author Juan J MILLARD PA Organization Unknown Address [address] [place] [address] Phone [phone] Care Team Providers Care Photographic Laboratory Supervisor Name Role Phone Iraida Burr AUTM [phone] Nomi Triplett MD AUTM [phone] [facility] AUTM [phone] [facility] - Physical Therapist AUTM [phone] [facility] - Otolaryngology AUTM [phone] [facility] - Urology AUTM [phone] [facility] General Surgery Practice - Surgery AUTM [phone] Fely Nance MD AUTM [phone] Problems Active Problems Provider Date Mixed hyperlipidemia [...] spray each nostril once daily 15.800ml H92.02 Lissteh Bruner M.D. 08/26/2020 Losartan Potassium 25mg Tablets 1 by mouth every day 30tabs I10 Lisseth Fajardo M.D. 021 Alprazolam 0.25mg Tablets 1 tab by mouth q day prn anxiety 30tabs I10 Lisseth Fajardo M.D. 021 Levothyroxine Sodium 75mcg Tablets 1 tab by mouth every day 90tabs Lisseth Fajardo M.D. 06/01 [place]-3 Fish Oil 1000mg Capsules one po qd Unknown Vitamin D 1000Unit Capsules 1 by mouth every day 60caps E55.9 Lisseth Fajardo M.D. 000 Icaps Capsules one po qd Unknown Multivitamin Men Tablets 1 by mouth every day Unknown Immunizations CPT Code Status Date Vaccine Lot # [id number] Refused 03/20/2019 Influenza Virus Vaccine, Quadrivalent,age 3 and up,multidose vial [id number] Refused 08/02/2018 Prevnar 13 For Adults [id number] Refused 08/02/2018 Pneumococcal Vaccine Vital Signs Date [...] Flow Rate 461 Estimated Peak Flow Rate [place] Body Weight 154 lb BMI (Body Mass [...] Flow Rate 460 Estimated Peak Flow Rate [place] Body Weight 154 lb BMI (Body Mass [...] Description Provider 08/26/2020 H92.02 Otalgia, left ear Jann S CORAL He 08/26/2020 I10 Essential (primary) hypertension Alberta Millard PA 08/26/2020 F41.9 Anxiety disorder, unspecified Pe trancostAlberta baker PA 03/04/2020 Z00.00 Encounter for genera l adult medical examination without abnormal findings Alberta Millard PA 03/04/2020 E78.2 Mixed hyperlipidemia Alberta Millard PA 03/04/2020 I10 Essential (primary) hypertension Alberta Millard PA 03/04/2020 E03.9 Hypothyroidism, unspecified [place] Alberta soto PA Plan of Treatment Future Appointment(s):* 09/09/2020 2:15 pm - Alberta Millard PA at Main Office * 09/09/2020 3:30 pm - Alberta Millard PA [...]
--- OUTSIDE RECORDS SUMMARY | 2020-09-01 14:30 | CCD ---
Author Author [facility] Organization [facility] Address Unknown Phone Unavailable Care Team Providers Care Restaurant Host Name Role Phone Petrsharadostolivia Marin Alberta PA-C Unavailable Unavailabl e Petrancosta, Marin Alberta PA-C Unavailable Unavailabl e Petrancosta, Marin Alberta PA-C Unavailable Unavailabl e Petrancosta, Marin Alberta PA-C Unavailable Unavailabl e Petrancosta, Marin Alberta PA-C Unavailable Unavailabl e Petrancosta, Marin Alberta PA-C Unavailable Unavailabl e Petrancosta, Marin Alberta PA-C Unavailable Unavailabl e Petrancosta, Marin Alberta PA-C Unavailable Unavailabl e Petrancosta, Marin Alberta PA-C Unavailable Unavailabl e Petrancosta, Marin Alberta PA-C Unavailable Unavailabl e Petrancosta, Marin Alberta PA-C Unavailable Unavailabl e Petrancosta, Marin Alberta PA-C Unavailable Unavailabl e Petrancosta, Marin Alberta PA-C Unavailable Unavailabl e Petrancosta, Marin Alberta PA-C Unavailable Unavailabl e Petrancosta, Marin Alberta PA-C Unavailable Unavailabl e Petrancosta, Marin Alberta PA-C Unavailable Unavailabl e Petrancosta, Marin Alberta PA-C Unavailable Unavailabl e Petrancosta, Marin Alberta PA-C Unavailable Unavailabl e Petrancosta, Marin Alberta PA-C Unavailable Unavailabl e Petrancosta, Marin Alberta PA-C Unavailable Unavailabl e Petrancosta, Marin Alberta PA-C Unavailable Unavailabl e Petrancosta, Marin Alberta PA-C Unavailable Unavailabl e Petrancosta, Marin Alberta PA-C Unavailable Unavailabl e Dominique, Zulema REPAIRER SHOE STICKS Unavailable Unavailable Dominique, Zulema REPAIRER SHOE STICKS Unavailable Unavailable Dominique, Zulema REPAIRER SHOE STICKS Unavailable Unavailable Dominique, Zulema REPAIRER SHOE STICKS Unavailable Unavailable Dominique, Zulema REPAIRER SHOE STICKS Unavailable Unavailable Dominique, Zulema REPAIRER SHOE STICKS Unavailable Unavailable Dominique, Zulema REPAIRER SHOE STICKS Unavailable Unavailable Dominique, Zulema REPAIRER SHOE STICKS Unavailable Unavailable Dominique, Zulema REPAIRER SHOE STICKS Unavailable Unavailable Dominique, Zulema REPAIRER SHOE STICKS Unavailable Unavailable Dominique, Zulema REPAIRER SHOE STICKS Unavailable Unavailable MARILEE, RON JEANA PA Unavailable Unavailable MARILEE, RON JEANA PA Unavailable Unavailable MARILEE, RON JEANA PA Unavailable Unavailable MARILEE, RON JEANA PA Unavailable Unavailable MRAILEE, RON JEANA PA Unavailable Unavailable MARILEE, RON [...] is protected by Article 27-F of the [facility] Public Health law. If you continue you may have access to information: Regarding HIV / AIDS; Provided by facilities licensed or operated by the [facility] Office of Mental Health; or Provided by the [facility] Office for People With Developmental Disabilities. If such information is present, then the following [facility] mandated warning applies: This information has [...] law may result in a fine or senior living sentence or both. A general authorization for the release of medical or other information is NOT sufficient authorization for further disc losure. Family History Family Member Name Family Member Gender Family Member Status Date o f Status Description Data Source(s) Unknown Unknown Problem [facility] ([facility] Unknown Unknown Problem [facility] ([facility] Unknown Male Problem [facility] ([facility] ) () - at age 76 Unknown Unknown Problem [facility] ([facility] Encounters Encounter Providers Location Date Indications Data Source(s ) Outpatient Attender: Alberta Forte PA-C Main Office 08/26/2020 02:30:00 PM EST [facility] ([facility] Outpatient Attender: Zulema marcos 08/06/2020 04:20:00 PM EST [facility] ([facility] [place] [address] [facility] [address] 06/08/2020 12:00:00 AM EST eCW1 ([facility]) Outpatient [address] [facility] [place] [address] 06/02/2020 12:00:00 AM EST eCW1 ([facility]) Outpatient Attender: Alberta Forte PA-C Main Office 03/04/2020 03:15:00 PM EDT [facility] ([facility] Emergency Attender: JEANA MONCADA EMERGENCY ROOM-ER 02/20/2020 02:33:00 PM EDT - 02/20/2020 03:00:00 PM EDT [facility] Patient discharged. Outpatient Attender: Alberta Forte PA-C Main Office 08/12/2019 01:00:00 PM EST [facility] ([facility] [address] [place] [id number] 08/09/2019 12:00:00 AM EST eCW1 ([facility]) [address] [address] 08/06/2019 12:00:00 AM EST eCW1 ([facility]) Immunizations Vaccine Date Status Description Data Source(s) INFLUENZA VACCINE QUADRIVALENT 2019- (65 YR UP)/MF59 C.1/PF 06/17/2020 12:00:00 AM EST completed [facility] Medications Medication Brand Name Start Date Product Form Dose Route Admi nistrative Instructions Pharmacy Instructions Status Indications Reaction Description Data Source(s) Losartan Potassium 25 MG Oral Tablet Losartan Potassium 12:00:00 AM EST ORAL active [facility] ([facility] Alprazolam 0.25 MG Oral Tablet Alprazolam 08/26/2020 12:00:00 AM EST ORAL active [facility] ([facility] Flonase Allergy Relief Flonase Allergy Relief 08/26/2020 12:00:[address] active [facility] ([facility] Amoxicillin 875 MG Oral Tablet Amoxicillin 08/06/2020 12:00:00 AM EST ORAL active [facility] ([facility]) Loratadine 10 MG Oral Tablet Loratadine 08/06/2020 12:00:00 AM EST active [facility] ([facility] Insurance Providers Payer name Policy type / Coverage type Policy ID Covered democrat ID Covered democrat's relationship to [place] Policy [place] Plan Information MEDICARE BLUE PPO 306 [id number] SP [id number] MEDICARE BLUE PPO 306 [id number] SP [id number] AARP HEALTH CARE OPTIONS [id number] SP [id number] MEDICARE [id number] SP [id number] [facility] [id number] S [id number] AARP HEALTH CARE OPTIONS [id number] S [id number] [place] MEDICARE DIVISION [id number] S [id number] [place]IC[place] [id number] S [id number] AARP HEALTH CARE OPTIONS [id number] S [id number] [place] MEDICARE DIVISION [id number] S [id number] MEDICARE [place] [id number] S [id number] ANSI-Commercial [id number] ANSI-Medicare Part B [id number] ANSI-Commercial [id number] ANSI-Medicare Part B [id number] Aarp Health Care Options Medigap Part B [id number] Self [id number] Medicare Natl Gov't Servi Medicare Primary [id number] Self [id number] Aarp Health Care Options Medigap Part B [id number] Self [id number] Medicare Natl Gov't Servi Medicare Primary [id number] Self [id number] ANSI-Commercial [id number] ANSI-Medicare Part B [id number] ANSI-Medicare Part B [id number] ANSI-Commercial [id number] [facility] Health Care Options [facility] Part B [id number] Self [id number] Medicare Natl Gov't Serv Medicare Primary [id number] Self [id number] [facility] Part B [id number] Self [id number] Medicare [place] Primary [id number] Self [id number] MEDICARE [id number] A ANSI-Commercial [id number] ANSI-Medicare Part B [id number] ANSI-Medicare Part B [id number] ANSI-Commercial [id number] Aarp Medigap Part B [id number] Self [id number] Medicare [place] Medicare Primary [id number] Self [id number] EXCELLUS BCBS [facility] HMO [facility] HMO [id number] S [id number] Aarp Medigap Part B [id number] Self [id number] Medicare [place] Medicare Primary [id number] Self [id number] MEDICARE BLUE PPO 306 [id number] SP [id number] Aarp Healthcare Options Medigap Part B [id number] Self [id number] Medicare [place] Medicare Primary [id number] Self [id number] MEDICARE BLUE PPO 306 [id number] SP [id number] BCBS Medicare Commercial [id number] Self [id number] MEDICARE BLUE PPO 306 [id number] SP [id number] MEDICARE BLUE PPO 306 [id number] SP [id number] BCBS Medicare Commercial [id number] Self [id number] BCBS Medicare Commercial [id number] Self [id number] [id number] BCBS Medicare Commercial [id number] Self [id number] MEDICARE BLUE PPO 306 [id number] SP [id number] BS Of [facility] (HMO) Self Medicare Advantage BCBS Medigap Part B Self Citizen Of [place] Prog-Today's Opt Commercial Self BCBS OF [place] [id number] S [id number] BCBS EMPIRE BC UNAVAILABLE S UNAVAI LABLE TODAYS OPTIONS [id number] [place] [id number] TODAYS OPTIONS/[place] P [id number] S [id number] TODAYS OPTION [id number] SP [id number] SP [id number] Problems, Conditions, and Diagnoses Code Display Name Description Problem Type Effective Dates Data Source(s) R31.0 Gross hematuria Gross hematuria Problem 06/02/2020 12:0 0:00 AM EST eCW1 ([facility]) Z79.899 Other nursing home (current) drug therapy 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) DRUG THERAPY Diagnosis 02/20/2020 02:33:00 PM [facility] l Z79.82 intermodal customer service (current) use of aspirin CERTIFIED ALCOHOL DRUG COUNSELOR (CU RRENT) USE OF ASPIRIN Diagnosis 02/20/2020 02:33:00 PM [facility] Z53.20 Procedure and treatment not carried out because of patient's decision for unspecified reasons PROC/TRTMT NOT CRD OUT BEC PT DECISION FOR UNSP RE Debbie gnosis 02/20/2020 02:33:00 PM [facility] I10 Essential (primary) hypertension ESSENTIAL (PRIMARY) H YPERTENSION Diagnosis 02/20/2020 02:33:00 PM [facility] R42 Dizziness and giddiness DIZZINESS AND GIDDINESS Diagno sis 02/20/2020 02:33:00 PM [facility] Surgeries/Procedures Procedure Description Date Indications Data Source(s) ARUNAIPUNCT, ROUTINE* 08/06/2019 12:00:00 AM EST eCW1 ([facility]) Results ID Date Data Source URINE CULTURE 06/03/2020 02:54:05 AM EST eCW1 ([facility]) Name Value Range Interpretation Code Description Data Cinthya rce(s) Supporting Document(s) Laboratory studies (set) URINE CULTU RE eCW1 ([facility]) ID Date Data Source UA URINALYSIS 06/03/2020 02:53:55 AM EST eCW1 ([facility]) Name Value Range Interpretation Code Description Data Cinthya rce(s) Supporting Document(s) Laboratory studies (set) UA URINALYS IS eCW1 ([facility]) ID Date Data Source [id number] 02/21/2020 11:55:00 AM [facility] l Patient: DAVID MCKENNA Observation Re port - [facility].VisitID: [id number] [place] [address] [phone], MRegistration Date/Time: 02/20/2020 13:11 Weight:79.3 kg (S). [...] 02/20/2020 15:27) Addenda for DAVID MCKENNA VisitID: [id number] Date: 02/20/2020 02/21/2020 11:52LWBS/LWBT/AMA??? follow-up Spoke to patient's who states that he was doing better, tired today but at work. Encouraged to return to ED with any further complications/concerns. (Electronically signed by Fadumo Boyer R.N. 02/21/2020 11:52) Name Value Range Interpretation Code Description Data Cinthya rce(s) Supporting Document(s) ID Date Data Source [id number] 02/20/2020 03:29:00 PM EDT [facility] Patient: DAVID MCKENNA Observation Re [facility] - [facility], [facility].VisitID: [id number] [place] [address] [phone], MRegistration Date/Time: 02/20/2020 13:11 Weight:79.3 kg (S). [...] Code Description Data Cinthya rce(s) Supporting Document(s) ID Date Data Source [id number] 02/20/2020 02:44:00 PM EDT [facility] TSYSORDER [id number] Name Value Range Interpretation Code Description Data Cinthya rce(s) Supporting Document(s) URINE COLOR. [facility] URINE APPEARANCE CLEAR [facility] SPECIFIC GRAVITY,URINE 1.015 1.001-1.035 [facility] URINE LEUKOCYTE ESTERASE NEGATIVE NEGATIVE [facility] URINE NITRATE NEGATIVE NEGATIVE [facility] PH,URINE 5.5 5.0-9.0 [facility] URINE PROTEIN NEGATIVE mg/dL NEGATIVE [facility] URINE GLUCOSE (UA) NEGATIVE mg/dL NEGATIVE [facility] URINE KETONE NEGATIVE mg/dL NEGATIVE [facility] UROBILINOGEN NORMAL(0.2-1) mg/dL 0-1 [facility] URINE BILIRUBIN NEGATIVE NEGATIVE [facility] URINE BLOOD NEGATIVE NEGATIVE [facility] ID Date Data Source [id number] 02/20/2020 02:36:00 PM EDT [facility] TSYS[facility] [id number] Name Value Range Interpretation Code Description Data Cinthya rce(s) Supporting Document(s) MAGNESIUM 2.1 mg/dL 1.8-2.4 [facility] ID Date Data Source [id number] 02/20/2020 02:36:00 PM EDT [facility] T[facility] [id number] Name Value Range Interpretation Code Description Data Cinthya rce(s) Supporting Document(s) LIPASE 183 U/L 73-393 [facility] ID Date Data Source [id number] 02/20/2020 02:36:00 PM EDT [facility] TSYS[facility] [id number] Name Value Range Interpretation Code Description Data Cinthya rce(s) Supporting Document(s) GLUCOSE 100 mg/dL 74-106 [facility] BLOOD UREA NITROGEN 12 mg/dL 7-18 [facility] CREATININE 0.9 mg/dL 0.7-1.3 [facility] SODIUM 137 mmol/L 136-145 [facility] POTASSIUM 4.4 mmol/L 3.5-5.1 [facility] CHLORIDE 100 mmol/L 98-107 [facility] CO2 30 mmol/L 21-32 [facility] CALCIUM 9.0 mg/dL 8.5-10.1 [facility] ANION GAP 7.0 mmol/L 5-12 [facility] GLOMERULAR FILTRATION RATE 82 mL/min [facility] GFR IS CALCULATED IN mL/min/1.73m2 ARI L FUNCTION: >90MILDLY DECREASED: 60-89MILDY TO MODERATELY DECREASED: 45-59 MODERATELY TO SEVERELY DECREASED: 30-44SEVERELY DECREASED: 15-29RENAL FAILURE: <15 AST 27 U/L 15-37 [facility] ALT 31 U/L 12-78 [facility] ALKALINE PHOSPHATASE 83 U/L 46-116 [facility] TOTAL BILIRUBIN 0.4 mg/dL 0.2-1.0 [facility] TOTAL PROTEIN 7.5 g/dl 6.4-8.2 [facility] ALBUMIN 3.8 gm/dL 3.4-5.0 [facility] ID Date Data Source [id number] 02/20/2020 02:35:00 PM EDT [facility] TSYSORDER [id number] Name Value Range Interpretation Code Description Data Cinthya rce(s) Supporting Document(s) PARTIAL THROMBOPLASTIN TIME 24.2 SECONDS 21.4-30.2 [facility] ID Date Data Source [id number] 02/20/2020 02:35:00 PM [facility] TSYSORDER [id number] Name Value Range Interpretation Code Description Data Cinthya rce(s) Supporting Document(s) PROTHROMBIN TIME (PATIENT) 10.3 SECONDS 9.2-11.6 [facility] INR 0.99 0.87-1.06 [facility] ID Date Data Source [id number] 02/20/2020 02:17:00 PM [facility] TSYSORDER [id number] Name Value Range Interpretation Code Description Data Cinthya rce(s) Supporting Document(s) WHITE BLOOD COUNT 6.1 K/mm3 4.0-10.0 [facility] al RED BLOOD COUNT 4.85 M/mm3 4.50-6.00 [facility] HEMOGLOBIN 13.3 gm/dL 14.0-18.0 L [facility] HEMATOCRIT 39.7 % 42.0-54.0 L [facility] MEAN CELL VOLUME 81.9 fl 80-96 [facility] MEAN CORPUSCULAR HEMOGLOBIN 27.4 pg 27.0-31.0 [facility] MEAN CORPUSCULAR HGB CONC 33.5 g/dl 32.0-36.0 [facility] RED CELL DISTRIBUTION WIDTH 14.4 % 10.0-14.5 [facility] PLATELET COUNT 191 K/mm3 172-450 [facility] MEAN PLATELET VOLUME 9.5 fl 9.0-13.0 [facility] p[facility] GRAN % 78.4 % 50-80.0 [facility] IG% 0.2 % 0.0-0.2 [facility] LYMPH % 15.0 % 25.0-50.0 L [facility] MONO % 5.3 % 2.0-10.0 [facility] EOS % 0.8 % 0-5.0 [facility] BASO % 0.3 % 0.0-2.0 [facility] GRAN # 4.8 K/mm3 2.0-8.00 [facility] IG# 0.0 K/mm3 0.0-0.2 [facility] LYMPH # 0.9 K/mm3 1.0-5.0 L [facility] MONO # 0.3 K/mm3 0.10-1.20 [facility] EOS # 0.1 K/mm3 0.0-0.5 [facility] BASO # 0.0 K/mm3 0.0-0.2 [facility] ID Date Data Source [id number] 08/06/2019 07:50:00 AM EST [facility] ([facility] Name Value Range Interpretation Code Description Data Cinthya rce(s) Supporting Document(s) Free T4 0.95 ng/dL 0.76-1.46 [facility] ([facility] Thyroid Stimulating Hormone 2.090 uIU/ML 0.358-3.740 [facility] ([facility] ID Date Data Source [id number] 08/06/2019 07:50:00 AM EST [facility] ([facility] Name Value Range Interpretation Code Description Data Cinthya rce(s) Supporting Document(s) Hemoglobin A1c 6.1 % [facility] ([facility] REFERENCE RANGES: 4.5-5.6% NORMAL 5.7-6.4% SUGGESTS IMPAIRED GLUCOSE META BOLISM >= 6.5% ABNORMAL Estimated Average Glucose 128 mg/dL 60-110 [facility] ([facility] ID Date Data Source [id number] 08/06/2019 07:50:00 AM EST [facility] ([facility] Name Value Range Interpretation Code Description Data Cinthya rce(s) Supporting Document(s) Calcidiol [Mass/volume] in Serum or Plasma 26.8 ng/mL 30.0-100.0 [facility] ([facility] ID Date Data Source [id number] 08/06/2019 07:50:00 AM EST [facility] ([facility] [...] Little GFR Left</content>
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
<content></content> Sodium Level 140 meq/L 136-145 [facility] [...] [facility] Albumin/Globulin Ratio 0.90 1.00-1.93 [facility] ([facility] ID Date Data Source [id number] 08/06/2019 07:50:00 AM EST [facility] ([facility] [...] Value Status Description Data Source(s ) Smoking 08/26/2020 12:00:00 AM EST Patient has never smoked co mpleted Patient has never smoked [facility] ([facility] Smoking 08/06/2020 12:00:00 AM EST Patient has never smoked co mpleted Patient has never smoked [facility] ([facility]) Smoking 06/02/2020 12:00:00 AM EST Never Smoker completed Never S moker eCW1 ([facility]) Smoking 06/02/2020 12:00:00 AM EST Never Smoker completed Never S moker eCW1 ([facility]) Vital Signs ID Date Data Source [id number] Name Value Range Interpretation Code Description Data Source(s) Body mass index (BMI) [Ratio] 27.7 kg/m2 27.7 k g/m2 [facility] ([facility] [place] body weight 154 [lb_av] 154 [lb_av] MEDEN T ([facility] Oxygen saturation in Arterial blood by Pulse oximetry 98 % 98 % [facility] ([facility] Body weight 185.00 [lb_av] 185.00 [lb_av] MEDEN T ([facility] Body height 68.50 [in_i] 68.50 [in_i] [facility] ([facility] 5'8.50" Respiratory rate 15 /min 15 /min [facility] ( [facility] Body temperature 97.1 [degF] 97.1 [degF] [facility] ([facility] Heart rate 75 /min 75 /min [facility] ([facility] Diastolic blood pressure 89 mm[Hg] 89 mm[Hg] [facility] ([facility] Systolic blood pressure 185 mm[Hg] 185 mm[Hg] EDENT ([facility] Diastolic blood pressure 92 mm[Hg] 92 mm[Hg] [facility] ([facility] Systolic blood pressure 194 mm[Hg] 194 mm[Hg] [facility] ([facility] Body mass index (BMI) [Ratio] 25.8 kg/m2 25.8 k g/m2 [facility] ([facility]) Body height 70 [in_i] 70 [in_i] MEDENT ([facility]) 5'10" Body weight 180.00 [lb_av] 180.00 [lb_av] MEDEN T ([facility]) Body temperature 97.8 [degF] 97.8 [degF] MEDENT ([facility]) Oxygen saturation in Arterial blood by Pulse oximetry 97 % 97 % [facility] ([facility]) Respiratory rate 12 /min 12 /min [facility] ( [facility]) Heart rate 85 /min 85 /min [facility] ([facility]) Diastolic blood pressure 79 mm[Hg] 79 mm[Hg] MED[facility] ([facility]) Systolic blood pressure 156 mm[Hg] 156 mm[Hg] M EDENT ([facility]) Diastolic blood pressure mm[Hg] eCW1 ([facility]) Systolic blood pressure 138 mm[Hg] 138 mm[Hg] e CW1 ([facility]) Body temperature 96.6 [degF] 96.6 [degF] eCW1 ( [facility]) Respiratory rate 17 /min 17 /min eCW1 ([facility]) Heart rate 86 /min 86 /min eCW1 ([facility]) Body mass index (BMI) [Ratio] 25.97 kg/m2 25.97 kg/m2 eCW1 ([facility]) Body height 70 [in_i] 70 [in_i] eCW1 ([facility]) Body weight 181 [lb_av] 181 [lb_av] eCW1 ([facility]) Body mass index (BMI) [Ratio] 26.7 kg/m2 26.7 k g/m2 [facility] ([facility] [place] body weight 154 [lb_av] 154 [lb_av] MEDEN T ([facility] Oxygen saturation in [...] Systolic blood pressure 156 mm[Hg] 156 mm[Hg] EDENT ([facility] Diastolic blood pressure 78 mm[Hg] [...]
--- OUTSIDE RECORDS SUMMARY | 2020-09-01 14:56 | CCD ---
Author Author [facility] Organization [facility] Address Unknown Phone Unavailable Care Team Providers Care Manager Global Communications Name Role Phone Petrsharadostolivia Franklin Alberta PA-C Unavailable Unavailabl e Petrancosta, Franklin Alberta PA-C Unavailable Unavailabl e Petrancosta, Franklin Alberta PA-C Unavailable Unavailabl e Petrancosta, Franklin Alberta PA-C Unavailable Unavailabl e Petrancosta, Franklin Alberta PA-C Unavailable Unavailabl e Petrancosta, Franklin Alberta PA-C Unavailable Unavailabl e Petrancosta, Franklin Alberta PA-C Unavailable Unavailabl e Petrancosta, Franklin Alberta PA-C Unavailable Unavailabl e Petrancosta, Franklin Alberta PA-C Unavailable Unavailabl e Petrancosta, Franklin Alberta PA-C Unavailable Unavailabl e Petrancosta, Franklin Alberta PA-C Unavailable Unavailabl e Petrancosta, Franklin Alberta PA-C Unavailable Unavailabl e Petrancosta, Franklin Alberta PA-C Unavailable Unavailabl e Petrancosta, Franklin Alberta PA-C Unavailable Unavailabl e Petrancosta, Franklin Alberta PA-C Unavailable Unavailabl e Petrancosta, Franklin Alberta PA-C Unavailable Unavailabl e Petrancosta, Franklin Alberta PA-C Unavailable Unavailabl e Petrancosta, Franklin Alberta PA-C Unavailable Unavailabl e Petrancosta, Franklin Alberta PA-C Unavailable Unavailabl e Petrancosta, Franklin Alberta PA-C Unavailable Unavailabl e Petrancosta, Franklin Alberta PA-C Unavailable Unavailabl e Petrancosta, Franklin Alberta PA-C Unavailable Unavailabl e Petrancosta, Franklin Alberta PA-C Unavailable Unavailabl e Dominique, Zulema LEGAL RESEARCHER Unavailable Unavailable Dominique, Zulema LEGAL RESEARCHER Unavailable Unavailable Dominique, Zulema LEGAL RESEARCHER Unavailable Unavailable Dominique, Zulema LEGAL RESEARCHER Unavailable Unavailable Dominique, Zulema LEGAL RESEARCHER Unavailable Unavailable Dominique, Zulema LEGAL RESEARCHER Unavailable Unavailable Dominique, Zulema LEGAL RESEARCHER Unavailable Unavailable Dominique, Zulema LEGAL RESEARCHER Unavailable Unavailable Dominique, Zulema LEGAL RESEARCHER Unavailable Unavailable Dominique, Zulema LEGAL RESEARCHER Unavailable Unavailable Dominique, Zulema LEGAL RESEARCHER Unavailable Unavailable MARILEE, RON JEANA PA Unavailable [...] is protected by Article 27-F of the [facility] Public Health law. If you continue you may have access to information: Regarding HIV / AIDS; Provided by facilities licensed or operated by the [facility] Office of Mental Health; or Provided by the [facility] Office for People With Developmental Disabilities. If such information is present, then the following [facility] mandated warning applies: This information has [...] law may result in a fine or group home sentence or both. A general authorization for the release of medical or other information is NOT sufficient authorization for further disc losure. Family History Family Member Name Family Member Gender Family Member Status Date o f Status Description Data Source(s) Unknown Unknown Problem [facility] ([facility] Unknown Unknown Problem [facility] ([facility] Unknown Male Problem [facility] ([facility] () - at age 76 Unknown Unknown Problem [facility] ([facility] Encounters Encounter Providers Location Date Indications Data Source(s ) Outpatient Attender: Alberta Forte PA-C Main Office 08/26/2020 02:30:00 PM EST [facility] ([facility] Outpatient Attender: Zulema marcos 08/06/2020 04:20:00 PM EST [facility] ([facility] Unknown [address] [facility] [address] 06/08/2020 12:00:00 AM EST eCW1 ([facility]) Outpatient [address] [facility] [place] [address] 06/02/2020 12:00:00 AM EST eCW1 ([facility]) Outpatient Attender: Alberta Forte PA-C Main Office 03/04/2020 03:15:00 PM EDT MED[facility] ([facility] Emergency Attender: JEANA MONCADA EMERGENCY ROOM-ER 02/20/2020 02:33:00 PM EDT - 02/20/2020 03:00:00 PM EDT [facility] Patient discharged. Outpatient Attender: Alberta Forte PA-C Main Office 08/12/2019 01:00:00 PM EST [facility] ([facility] [address] [place] [id number] 08/09/2019 12:00:00 AM EST eCW1 ([facility]) [address] [address] 08/06/2019 12:00:00 AM EST eCW1 ([facility]) Immunizations Vaccine Date Status Description Data Source(s) INFLUENZA VACCINE QUADRIVALENT 2019- (65 YR UP)/MF59 C.1/PF 06/17/2020 12:00:00 AM EST completed [facility] Medications Medication Brand Name Start Date [...] 08/06/2020 12:00:00 AM EST ORAL active MEDENT ([facility]) Loratadine 10 MG Oral Tablet Loratadine 08/06/2020 12:00:00 AM EST active [facility] ([facility]) Insurance Providers Payer name Policy type / Coverage type Policy ID Covered green party ID Covered green party's relationship to [place]ana Policy [place] Plan Information MEDICARE BLUE PPO 306 [id number] SP [id number] MEDICARE BLUE PPO 306 [id number] SP [id number] AARP HEALTH CARE OPTIONS [id number] SP [id number] MEDICARE [id number] SP [id number] [id number] S [id number] AARP HEALTH CARE OPTIONS [id number] S [id number] [place] MEDICARE DIVISION [id number] S [id number] [place]IC[place] [id number] S [id number] AARP HEALTH CARE OPTIONS [id number] S [id number] [place] MEDICARE DIVISION [id number] S [id number] [place]ICARE [place] [id number] S [id number] ANSI-Commercial [id number] ANSI-Medicare Part B [id number] ANSI-Commercial [id number] ANSI-Medicare Part B [id number] Aarp Health Care Options Medigap Part B [id number] Self [id number] Medicare Natl Gov't Servi Medicare Primary [id number] Self [id number] Aarp Health Care Options Medigap Part B [id number] Self [id number] Medicare Natl Gov't Servi Medicare Primary [id number] Self [id number] ANSI-Commercial [id number] ANSI-Medicare Part B [id number] ANSI-Medicare Part B [id number] ANSI-Commercial [id number] [facility] Health Care Options [facility] Part B [id number] Self [id number] Medicare Natl Gov't Serv Medicare Primary [id number] Self [id number] [facility] Part B [id number] Self [id number] Medicare [place] Medicare Primary [id number] Self [id number] MEDICARE [id number] A ANSI-Commercial [id number] ANSI-Medicare Part B [id number] ANSI-Medicare Part B [id number] ANSI-Commercial [id number] Aarp Medigap Part B [id number] Self [id number] Medicare [place] Medicare Primary [id number] Self [id number] EXCELLUS BCBS [facility] HMO [facility] HMO [id number] S [id number] Aarp Medigap Part B [id number] Self [id number] Medicare [place] Medicare Primary [id number] Self [id number] MEDICARE BLUE PPO 306 [id number] SP [id number] Aarp Healthcare Options Medigap Part B [id number] Self [id number] Medicare [place] Medicare Primary [id number] Self [id number] MEDICARE BLUE PPO 306 [id number] SP [id number] BCBS Medicare Commercial [id number] Self [id number] MEDICARE BLUE PPO 306 [id number] SP [id number] MEDICARE BLUE PPO 306 [id number] SP [id number] BCBS Medicare Commercial [id number] Self [id number] BCBS Medicare Commercial [id number] Self [id number] BCBS Medicare Commercial [id number] Self [id number] [id number] MEDICARE BLUE PPO 306 [id number] SP [id number] BS Of [facility] (HMO) Self Medicare Advantage BCBS Medigap Part B Self [place] Prog-Today's Opt Commercial Self BCBS OF [place] [id number] S [id number] BCBS EMPIRE BC UNAVAILABLE S UNAVAI LABLE TODA[place] [id number] [place] [id number] TODAYS OPTIONS/[place] P [id number] S [id number] TODAYS OPTION [id number] SP [id number] SP [id number] Problems, Conditions, and Diagnoses Code Display Name Description Problem Type Effective Dates Data Source(s) R31.0 Gross hematuria Gross hematuria Problem 06/02/2020 12:0 0:00 AM EST eCW1 ([facility]) Z79.899 Other retirement (current) drug therapy O THER DIRECTOR GRAPHICS (CURRENT) DRUG THERAPY Diagnosis 02/20/2020 02:33:00 PM [facility] l 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 DIRECTOR GRAPHICS (CU RRENT) USE OF ASPIRIN Diagnosis 02/20/2020 02:33:00 PM [facility] Z53.20 Procedure and treatment not carried out because of patient's decision for unspecified reasons PROC/TRTMT NOT CRD OUT BEC PT DECISION FOR UNSP RE Debbie gnosis 02/20/2020 02:33:00 PM [facility] I10 Essential (primary) hypertension ESSENTIAL (PRIMARY) H YPERTENSION Diagnosis 02/20/2020 02:33:00 PM [facility] R42 Dizziness and giddiness DIZZINESS AND GIDDINESS Diagno sis 02/20/2020 02:33:00 PM [facility] Surgeries/Procedures Procedure Description Date Indications Data Source(s) ARUNAIPUNCT, ROUTINE* 08/06/2019 12:00:00 AM EST eCW1 ([facility]) Results ID Date Data Source URINE CULTURE 06/03/2020 02:54:05 AM EST eCW1 ([facility]) Name Value Range Interpretation Code Description Data Cinthya rce(s) Supporting Document(s) Laboratory studies (set) URINE CULTU RE eCW1 ([facility]) ID Date Data Source UA URINALYSIS 06/03/2020 02:53:55 AM EST eCW1 ([facility]) Name Value Range Interpretation Code Description Data Cinthya rce(s) Supporting Document(s) Laboratory studies (set) UA URINALYS IS eCW1 ([facility]) ID Date Data Source [id number] 02/21/2020 11:55:00 AM [facility] l Patient: DAVID MCKENNA Observation Re port - [facility].VisitID: [id number] [place] [address] [phone], MRegistration Date/Time: 02/20/2020 13:11 Weight:79.3 kg (S). [...] 02/20/2020 15:27) Addenda for DAVID MCKENNA VisitID: [id number] Date: 02/20/2020 02/21/2020 11:52LWBS/LWBT/AMA??? follow-up Spoke to patient's who states that he was doing better, tired today but at work. Encouraged to return to ED with any further complications/concerns. (Electronically signed by Fadumo Boyer R.N. 02/21/2020 11:52) Name Value Range Interpretation Code Description Data Cinthya rce(s) Supporting Document(s) ID Date Data Source [id number] 02/20/2020 03:29:00 PM EDT [facility] Patient: DAVID MCKENNA Observation [facility] - [facility], [facility].VisitID: [id number] [place] [address] [phone], MRegistration Date/Time: 02/20/2020 13:11 Weight:79.3 kg (S). [...] rce(s) Supporting Document(s) ID Date Data Source [id number] 02/20/2020 02:44:00 PM EDT [facility] TSYSORDER [id number] Name Value Range Interpretation Code Description Data Cinthya rce(s) Supporting Document(s) URINE COLOR. [facility] URINE APPEARANCE CLEAR [facility] SPECIFIC GRAVITY,URINE 1.015 1.001-1.035 [facility] URINE LEUKOCYTE ESTERASE NEGATIVE NEGATIVE [facility] URINE NITRATE NEGATIVE NEGATIVE [facility] PH,URINE 5.5 5.0-9.0 [facility] URINE PROTEIN NEGATIVE mg/dL NEGATIVE [facility] URINE GLUCOSE (UA) NEGATIVE mg/dL NEGATIVE [facility] URINE KETONE NEGATIVE mg/dL NEGATIVE [facility] UR[facility] UROBILINOGEN NORMAL(0.2-1) mg/dL 0-1 [facility] URINE BILIRUBIN NEGATIVE NEGATIVE [facility] URINE BLOOD NEGATIVE NEGATIVE [facility] ID Date Data Source [id number] 02/20/2020 02:36:00 PM EDT [facility] TSYS[facility] [id number] Name Value Range Interpretation Code Description Data Cinthya rce(s) Supporting Document(s) MAGNESIUM 2.1 mg/dL 1.8-2.4 [facility] ID Date Data Source [id number] 02/20/2020 02:36:00 PM EDT [facility] TSYS[facility] [id number] Name Value Range Interpretation Code Description Data Cinthya rce(s) Supporting Document(s) LIPASE 183 U/L 73-393 [facility] ID Date Data Source [id number] 02/20/2020 02:36:00 PM EDT [facility] TSYSORDER [id number] Name Value Range Interpretation Code Description Data Cinthya rce(s) Supporting Document(s) GLUCOSE 100 mg/dL 74-106 [facility] BLOOD UREA NITROGEN 12 mg/dL 7-18 [facility] CREATININE 0.9 mg/dL 0.7-1.3 [facility] SODIUM 137 mmol/L 136-145 [facility] POTASSIUM 4.4 mmol/L 3.5-5.1 [facility] CHLORIDE 100 mmol/L 98-107 [facility] CO2 30 mmol/L 21-32 [facility] CALCIUM 9.0 mg/dL 8.5-10.1 [facility] ANION GAP 7.0 mmol/L 5-12 [facility] GLOMERULAR FILTRATION RATE 82 mL/min [facility] GFR IS CALCULATED IN mL/min/1.73m2 ARI L FUNCTION: >90MILDLY DECREASED: 60-89MILDY TO MODERATELY DECREASED: 45-59 MODERATELY TO SEVERELY DECREASED: 30-44SEVERELY DECREASED: 15-29RENAL FAILURE: <15 AST 27 U/L 15-37 [facility] ALT 31 U/L 12-78 [facility] ALKALINE PHOSPHATASE 83 U/L 46-116 [facility] TOTAL BILIRUBIN 0.4 mg/dL 0.2-1.0 [facility] TOTAL PROTEIN 7.5 g/dl 6.4-8.2 [facility] ALBUMIN 3.8 gm/dL 3.4-5.0 [facility] ID Date Data Source [id number] 02/20/2020 02:35:[address] [facility] TSYSORDER [id number] Name Value Range Interpretation Code Description Data Cinthya rce(s) Supporting Document(s) PARTIAL THROMBOPLASTIN TIME 24.2 SECONDS 21.4-30.2 [facility] ID Date Data Source [id number] 02/20/2020 02:35:00 PM [facility] TSYSORDER [id number] Name Value Range Interpretation Code Description Data Cinthya rce(s) Supporting Document(s) PROTHROMBIN TIME (PATIENT) 10.3 SECONDS 9.2-11.6 [facility] INR 0.99 0.87-1.06 [facility] ID Date Data Source [id number] 02/20/2020 02:17:00 PM [facility] TSYSORDER [id number] Name Value Range Interpretation Code Description Data Cinthya rce(s) Supporting Document(s) WHITE BLOOD COUNT 6.1 K/mm3 4.0-10.0 [facility] RED BLOOD COUNT 4.85 M/mm3 4.50-6.00 [facility] HEMOGLOBIN 13.3 gm/dL 14.0-18.0 L [facility] HEMATOCRIT 39.7 % 42.0-54.0 L [facility] MEAN CELL VOLUME 81.9 fl 80-96 [facility] MEAN CORPUSCULAR HEMOGLOBIN 27.4 pg 27.0-31.0 [facility] MEAN CORPUSCULAR HGB CONC 33.5 g/dl 32.0-36.0 [facility] RED CELL DISTRIBUTION WIDTH 14.4 % 10.0-14.5 [facility] PLATELET COUNT 191 K/mm3 172-450 [facility] MEAN PLATELET VOLUME 9.5 fl 9.0-13.0 [facility] pital GRAN % 78.4 % 50-80.0 [facility] IG% 0.2 % 0.0-0.2 [facility] LYMPH % 15.0 % 25.0-50.0 L [facility] MONO % 5.3 % 2.0-10.0 [facility] EOS % 0.8 % 0-5.0 [facility] BASO % 0.3 % 0.0-2.0 [facility] GRAN # 4.8 K/mm3 2.0-8.00 [facility] IG# 0.0 K/mm3 0.0-0.2 [facility] LYMPH # 0.9 K/mm3 1.0-5.0 L [facility] MONO # 0.3 K/mm3 0.10-1.20 [facility] EOS # 0.1 K/mm3 0.0-0.5 [facility] BASO # 0.0 K/mm3 0.0-0.2 [facility] ID Date Data Source [id number] 08/06/2019 07:50:00 AM EST [facility] ([facility] Name Value Range Interpretation Code Description Data Cinthya rce(s) Supporting Document(s) Free T4 0.95 ng/dL 0.76-1.46 [facility] ([facility] Thyroid Stimulating Hormone 2.090 uIU/ML 0.358-3.740 [facility] ([facility] ID Date Data Source [id number] 08/06/2019 07:50:00 AM EST [facility] ([facility] Name Value Range Interpretation Code Description Data Cinthya rce(s) Supporting Document(s) Hemoglobin A1c 6.1 % [facility] ([facility] REFERENCE RANGES: 4.5-5.6% NORMAL 5.7-6.4% SUGGESTS IMPAIRED GLUCOSE META BOLISM >= 6.5% ABNORMAL Estimated Average Glucose 128 mg/dL 60-110 [facility] ([facility] ID Date Data Source [id number] 08/06/2019 07:50:00 AM EST [facility] ([facility] Name Value Range Interpretation Code Description Data Cinthya rce(s) Supporting Document(s) Calcidiol [Mass/volume] in Serum or Plasma 26.8 ng/mL 30.0-100.0 [facility] ([facility] ID Date Data Source [id number] 08/06/2019 07:50:00 AM EST [facility] ([facility] [...] Little GFR Left</content>
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
<content></content> Sodium Level 140 meq/L 136-145 MED[facility] [...] [facility] ID Date Data Source [id number] 08/06/2019 07:50:00 AM EST MEDENT ([facility] [...] co mpleted Patient has never smoked MEDENT ([facility]) Smoking 06/02/2020 12:00:00 AM EST Never Smoker completed Never S moker eCW1 ([facility]) Smoking 06/02/2020 12:00:00 AM EST Never Smoker completed Never S moker eCW1 ([facility]) Vital Signs ID Date Data Source UNK Name Value Range Interpretation Code Description Data Source(s) Body mass index (BMI) [Ratio] 27.7 kg/m2 27.7 k g/m2 [facility] ([facility] [place] body weight 154 [lb_av] 154 [lb_av] MEDEN [...] [Ratio] 25.8 kg/m2 25.8 k g/m2 MEDENT ([facility]) Body height 70 [in_i] 70 [in_i] MEDENT ([facility]) 5'10" Body weight 180.00 [lb_av] 180.00 [lb_av] MEDEN T ([facility], [facility]) Body temperature 97.8 [degF] 97.8 [degF] [facility] ([facility]) Oxygen saturation in Arterial blood by Pulse oximetry 97 % 97 % MEDENT ([facility], [facility]) Respiratory rate 12 /min 12 /min MEDENT ( [facility], [facility]) Heart rate 85 /min 85 /min MED[facility] ([facility]) Diastolic blood pressure 79 mm[Hg] 79 mm[Hg] MEDENT ([facility], [facility]) Systolic blood pressure 156 mm[Hg] 156 mm[Hg] M EDENT ([facility], [facility]) Diastolic blood pressure mm[Hg] eCW1 ([facility]) Systolic blood pressure 138 mm[Hg] 138 mm[Hg] e CW1 ([facility]) Body temperature 96.6 [degF] 96.6 [degF] eCW1 ( [facility]) Respiratory rate 17 /min 17 /min eCW1 ([facility]) Heart rate 86 /min 86 /min eCW1 ([facility]) Body mass index (BMI) [Ratio] 25.97 kg/m2 25.97 kg/m2 eCW1 ([facility]) Body height 70 [in_i] 70 [in_i] eCW1 ([facility]) Body weight 181 [lb_av] 181 [lb_av] eCW1 ([facility] Body mass index (BMI) [Ratio] 26.7 kg/m2 26.7 k g/m2 [facility] ([facility] [place] body weight 154 [lb_av] 154 [lb_av] MEDEN [...]
--- NOTE | 2020-09-01 15:19 | REP ---
INDICATION: CHEST PAIN COMPARISON: 09/14/2015 TECHNIQUE: Portable AP view of the chest FINDINGS: The mediastinum and cardiac silhouette are stable and within normal limits for portable technique. The lung fish are clear without acute consolidation, effusion, or pneumothorax. Skeletal structures are intact. IMPRESSION: No acute cardiopulmonary process appreciated. No focal consolidation or effusion. <Electronically signed by Alex Mccabe > 09/01/20 [id number]
[2020-09-01 15:47] LABS: BASO # 0.1 10^3/uL (0.0-0.2); BASO % 0.9 % (0.0-1.0); EOS # 0.4 10^3/uL (0.0-0.5); EOS % 4.5 % (0.0-3.0); HEMATOCRIT 28.5 % (42.0-52.0); HEMOGLOBIN 8.5 g/dl (13.5-17.5); LYMPH # 1.6 10^3/uL (1.5-5.0); MEAN CORPUSCULAR HEMOGLOBIN 26.5 pg (27.0-33.0); MEAN CORPUSCULAR HGB CONC 29.8 g/dl (32.0-36.5); MEAN CORPUSCULAR VOLUME 88.8 fl (80.0-96.0); MONO # 1.1 10^3/uL (0.0-0.8); MONO % 11.5 % (0.0-5.0); NEUTROPHILS # 5.9 10^3/uL (1.5-8.5); NEUTROPHILS % 64.7 % (36.0-66.0); PLATELET COUNT, AUTOMATED 279 10^3/uL (150-450); RED BLOOD COUNT 3.21 10^6/uL (4.30-6.10); WHITE BLOOD COUNT 9.1 10^3/uL (4.0-10.0)
[2020-09-01 16:04] LABS: ALBUMIN 3.4 GM/DL (3.2-5.2); ALT/SGPT 23 U/L (12-78); BILIRUBIN,DIRECT 0.2 MG/DL (0.0-0.2); BILIRUBIN,TOTAL 0.3 MG/DL (0.2-1.0); CK-MB VALUE MASS 3.1 NG/ML (<3.6); CPK CREATINE PHOSPHOKINASE 85 U/L (39-308); MB/CK RELATIVE INDEX 3.65 (< OR =4); NT-PRO BNP 1604 PG/ML (<450); TOTAL PROTEIN 7.6 GM/DL (6.4-8.2); TROPONIN I < 0.02 NG/ML (< 0.10)
[2020-09-01] MEDS ORDERED: ACETAMINOPHEN 325 MG TAB PO ONE (16:15)
[2020-09-01] MEDS ORDERED: ISOVUE-370 76% 100ML VIAL As Ordered ONE (16:33)
--- NOTE | 2020-09-01 16:34 | ECGEPIP ---
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
--- NOTE | 2020-09-01 16:59 | REP ---
INDICATION: left parotid/mastoid region pain; r/o abscess/stone?. COMPARISON: None. TECHNIQUE: Helical scanning is acquired following the intravenous injection of 75 mL of Isovue 370. 3 mm axial images are generated. Coronal and sagittal MPR images are provided. FINDINGS: Preliminary insecticide mixer images demonstrate retained mandibular molars bilaterally. There is retain maxillary molar on the left. On axial images the paranasal sinuses are aerated and clear as visualized. There is some vascular calcification in the distal internal carotid arteries. No acute bony destructive lesion is seen. There are degenerative spondylosis changes in the cervical spine. The parotid glands are normal and symmetric. Tonsillar and peritonsillar soft tissues are unremarkable. Nasopharynx is unremarkable. The masseter muscles are normal and symmetric. Submandibular glands are unremarkable. No adenopathy or mass lesion is seen. No vascular abnormality is observed other than atherosclerotic calcification. No supraclavicular adenopathy is seen. The lung apices are clear. Glottic and subglottic airway is unremarkable. No laryngeal lesion is seen. Thyroid lobes are normal and homogeneous. IMPRESSION: Some vascular calcifications noted. Retained mandibular and maxillary molars. No bony destructive lesion. No acute soft tissue abnormality. <Electronically signed by Eros Cuello > 09/01/20 [id number]
[2020-09-01 18:07] LABS: BASO % 0.5 % (0.0-1.0); EOS # 0.1 10^3/uL (0.0-0.5); EOS % 1.4 % (0.0-3.0); HEMATOCRIT 39.9 % (42.0-52.0); LYMPH # 1.5 10^3/uL (1.5-5.0); LYMPH % 25.2 % (24.0-44.0); MEAN CORPUSCULAR HEMOGLOBIN 27.3 pg (27.0-33.0); MEAN CORPUSCULAR HGB CONC 32.8 g/dl (32.0-36.5); MEAN CORPUSCULAR VOLUME 83.1 fl (80.0-96.0); MONO # 0.4 10^3/uL (0.0-0.8); MONO % 6.8 % (0.0-5.0); NEUTROPHILS # 3.9 10^3/uL (1.5-8.5); NEUTROPHILS % 65.8 % (36.0-66.0); PLATELET COUNT, AUTOMATED 190 10^3/uL (150-450); WHITE BLOOD COUNT 5.9 10^3/uL (4.0-10.0)
[2020-09-01 18:14] LABS: HEMOGLOBIN 13.1 g/dl (13.5-17.5)
[2020-09-01 18:45] VITALS: BP 153/83
== END 2020-09-01 19:09 | disposition home or self-care (01) ==
LOC: M ED 14:21
DX: H65.02 Acute serous otitis media, left ear (principal); I10 Essential (primary) hypertension; J45.909 Unspecified asthma, uncomplicated; E03.9 Hypothyroidism, unspecified
CPT/HCPCS: 36415; 70491; 71045; 80047; 80076; 82550; 82553; 83880; 84443; 84484; 85025; 93005; 93041; 94760; 99285; Q9967

== ENCOUNTER → 2020-09-18 | Outpatient (REF) | payer MEDICARE ==
[2020-09-18 12:16] LABS: BLOOD UREA NITROGEN 13 MG/DL (7-18); CALCIUM LEVEL 8.8 MG/DL (8.8-10.2); CARBON DIOXIDE LEVEL 29 MEQ/L (21-32); CHLORIDE LEVEL 104 MEQ/L (98-107); CHOLESTEROL LEVEL 255 MG/DL (<200); CHOLESTEROL RISK RATIO 4.112 (<5); CREATININE FOR GFR 0.92 MG/DL (0.70-1.30); GLOMERULAR FILTRATION RATE > 60.0 (>42); GLUCOSE, FASTING 99 MG/DL (70-100); HDL CHOLESTEROL 62 MG/DL (>40); LDL CHOLESTEROL 172 MG/DL (<100); NON-HDL-C 193 MG/DL; POTASSIUM SERUM 4.4 MEQ/L (3.5-5.1); PROSTATIC SPECIFIC AG MONITOR 0.03 NG/ML (< 4.00); SODIUM LEVEL 141 MEQ/L (136-145); TRIGLYCERIDES LEVEL 105 MG/DL (<150)
[2020-09-18 13:21] LABS: % LABILE ALKALINE PHOSPHATASE 80.8 %; LABILE ALKPHOS 59 U/L; STABLE ALKPHOS 14 U/L
== END ==
LOC: M SFHCCLAY 08:24
PROVIDERS: ATTEND Family Medicine
DX: R74.8 Abnormal levels of other serum enzymes (principal); E78.5 Hyperlipidemia, unspecified; I11.9 Hypertensive heart disease without heart failure; C61 Malignant neoplasm of prostate

== ENCOUNTER 2020-10-03 03:56 | Emergency (ER) | payer MEDICARE ==
[~2020-10-03] VITALS: Ht 177.8 cm; Wt 82.7 kg
[2020-10-03 04:53] LABS: BASO % 0.3 % (0.0-1.0); EOS # 0.1 10^3/uL (0.0-0.5); EOS % 1.3 % (0.0-3.0); HEMATOCRIT 40.1 % (42.0-52.0); HEMOGLOBIN 12.9 g/dl (13.5-17.5); LYMPH # 1.3 10^3/uL (1.5-5.0); LYMPH % 20.8 % (24.0-44.0); MEAN CORPUSCULAR HGB CONC 32.2 g/dl (32.0-36.5); MEAN CORPUSCULAR VOLUME 83.9 fl (80.0-96.0); MONO # 0.5 10^3/uL (0.0-0.8); MONO % 7.2 % (2.0-8.0); NEUTROPHILS # 4.5 10^3/uL (1.5-8.5); NEUTROPHILS % 70.1 % (36.0-66.0); PLATELET COUNT, AUTOMATED 220 10^3/uL (150-450); RED BLOOD COUNT 4.78 10^6/uL (4.30-6.10); WHITE BLOOD COUNT 6.4 10^3/uL (4.0-10.0)
[2020-10-03] MEDS ORDERED: LABETALOL 100MG/20ML VIAL IV STA (04:54)
[2020-10-03] MEDS ORDERED: ACETAMINOPHEN TAB 650MG DOSE (2X325MG) PO ONE (04:55)
[2020-10-03 05:17] LABS: BLOOD UREA NITROGEN 15 MG/DL (7-18); CARBON DIOXIDE LEVEL 30 MEQ/L (21-32); CHLORIDE LEVEL 102 MEQ/L (98-107); CK-MB VALUE MASS < 1.0 NG/ML (<3.6); CPK CREATINE PHOSPHOKINASE 67 U/L (39-308); CREATININE FOR GFR 0.91 MG/DL (0.70-1.30); GLOMERULAR FILTRATION RATE > 60.0 (>42); GLUCOSE, FASTING 117 MG/DL (70-100); MB/CK RELATIVE INDEX 1.49 (< OR =4); POTASSIUM SERUM 4.1 MEQ/L (3.5-5.1); SODIUM LEVEL 135 MEQ/L (136-145); TROPONIN I < 0.02 NG/ML (< 0.10)
--- NOTE | 2020-10-03 06:18 | ECGEPIP ---
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
--- NOTE | 2020-10-03 06:31 | REPVR ---
PROCEDURE INFORMATION: Exam: CT Head Without Contrast Exam date and time: 10/03/2020 4:54 AM Age: 80 years old Clinical indication: Pain; Headache not specified; Additional info: Headache, HTN TECHNIQUE: Imaging protocol: Computed tomography of the head without contrast. Radiation optimization: All CT scans at this facility use at least one of these dose optimization techniques: automated exposure control; mA and/or kV adjustment per patient size (includes targeted exams where dose is matched to clinical indication); or iterative reconstruction. COMPARISON: CT Head without contrast 09/14/2015 7:32 PM FINDINGS: Brain: Normal. No hemorrhage. Unremarkable white matter. No mass effect. Cerebral ventricles: No ventriculomegaly. Bones/joints: Lucencies within the frontal calvarium are similar to prior CT and most likely benign. Paranasal sinuses: Mucosal thickening ethmoid sinuses. Mastoid air cells: Visualized mastoid air cells are well aerated. Vasculature: Prominent vertebrobasilar vessel calcification and ectasia. Cavernous carotid vessel calcification. Soft tissues: Unremarkable. Other findings: No acute hemorrhage. IMPRESSION: 1. Intracranial vascular calcification with suspected vertebrobasilar ectasia. 2. No acute intracranial process. Electronically signed by: Emili Lopez On 10/03/2020 06:31:07 AM
--- NOTE | 2020-10-03 06:34 | REPVR ---
PROCEDURE INFORMATION: Exam: XR Chest Exam date and time: 10/03/2020 5:32 AM Age: 80 years old Clinical indication: Other: Chest pain TECHNIQUE: Imaging protocol: XR of the chest Views: 1 view. COMPARISON: CR PORTABLE CHEST X-RAY 09/01/2020 3:13 PM FINDINGS: Lungs: Unremarkable. No consolidation. Pleural spaces: Unremarkable. No pleural effusion. No pneumothorax. Heart/Mediastinum: Unremarkable. No cardiomegaly. Vasculature: Calcified thoracic aorta. Diaphragm: A small lucency near the margin of the left hemidiaphragm is probably reflective of normal diaphragm/adjacent bowel interface in very unlikely extraluminal air Bones/joints: Unremarkable. IMPRESSION: 1. No acute cardiopulmonary process. 2. Most likely left diaphragm/adjacent bowel interface manifesting minimal linear lucency. Correlate clinically for confirmation of the absence of abdominal symptoms and a follow-up upright chest is recommended. Electronically signed by: Emili Lopez On 10/03/2020 06:35:11 AM
[2020-10-03 06:45] VITALS: BP 129/73
== END 2020-10-03 07:20 | disposition home or self-care (01) ==
LOC: M ED 03:56
DX: I10 Essential (primary) hypertension (principal); Z79.899 Other long term (current) drug therapy

== ENCOUNTER → 2020-10-05 | Outpatient (CLI) | payer MEDICARE ==
--- NOTE | 2020-10-05 15:14 | REP ---
INDICATION: CHRONIC PANSINUSITIS. COMPARISON: Comparison CT study September 01, 2020. Comparison brain CT study September 14, 2015.. TECHNIQUE: Helical scanning is acquired and 2 mm axial images re-formatted. Coronal MPR images are generated and reviewed. FINDINGS: Digital preliminary chief of field operations radiograph is unremarkable. The left frontal sinus is quite small but clear. Right frontal sinus is clear. There is no evidence of ethmoid sinus opacification or mucosal thickening. Sphenoid air cells are clear. There is moderate vascular calcification in the distal internal carotid arteries bilaterally. Mastoid aeration is normal and symmetric. There are mild areas of mucosal thickening in the maxillary sinuses bilaterally. There is moderate mucosal thickening along the infundibulum occluding the ostiomeatal complex on the left. The right OMC is patent although developmentally somewhat narrowed. Bony nasal septum deviates slightly to the left. No septal beak is seen. 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 Nasal turbinates soft tissues are otherwise unremarkable. No intraorbital abnormality is appreciated. There is generalized volume loss intracranially. IMPRESSION: Bilateral maxillary sinus mucosal changes including mucosal thickening obscuring the ostiomeatal complex on the left. Bilateral aerated alvarez bullosa. Generalized intracranial volume loss and vascular calcification. Otherwise negative. <Electronically signed by Eros Cuello > 10/05/20 [id number]
== END ==
LOC: M RAD 14:41
PROVIDERS: ATTEND Otolaryngology
DX: J32.4 Chronic pansinusitis (principal)

== ENCOUNTER → 2020-10-13 | Outpatient (REF) | payer MEDICARE | LOC: M SFHCCLAY 11:38 | PROVIDERS: ATTEND Family Medicine | DX: E55.9 Vitamin D deficiency, unspecified (principal) ==

== ENCOUNTER 2020-10-17 23:25 | Emergency (ER) | payer MEDICARE ==
[~2020-10-17] VITALS: Ht 177.8 cm; Wt 81.7 kg
[2020-10-18 02:05] VITALS: BP 187/86
--- NOTE | 2020-10-18 08:22 | ECGEPIP ---
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
== END 2020-10-18 02:21 | disposition home or self-care (01) ==
LOC: M ED 23:25
DX: Z00.8 Encounter for other general examination (principal); R42 Dizziness and giddiness; I10 Essential (primary) hypertension; F41.9 Anxiety disorder, unspecified; E03.9 Hypothyroidism, unspecified; Z79.899 Other long term (current) drug therapy

== ENCOUNTER → 2020-10-30 | Outpatient (CLI) | payer MEDICARE ==
--- NOTE | 2020-10-30 15:36 | REP ---
INDICATION: CALCS OF CAROTID ARTERIES. COMPARISON: None. TECHNIQUE: Bilateral carotid artery duplex ultrasound. FINDINGS: Peak flow velocities: Right left Internal carotid artery 133 cm/sec 100 cm/sec Int. Carotid diastolic 32 cm/sec 32 cm/sec External carotid artery 211 cm/sec 109 cm/sec Common carotid artery 111 cm/sec 137 cm/sec ICA-CCA ratio 1.19 0.72 IMPRESSION: There is intimal thickening in the distal common carotid arteries extending into the bulbs and internal carotid arteries and external carotid arteries bilaterally. Peak flow velocities are normal bilaterally except for mildly elevated peak flow velocity in the right external carotid artery. In the absence of atheromatous plaque this is likely from vessel tortuosity. No stenosis is identified on the right or the left. There is antegrade flow in the vertebral arteries bilaterally. <Electronically signed by Darwin Cardona > 10/30/20 [id number]
== END ==
LOC: M RAD 13:36
PROVIDERS: ATTEND Family Medicine
DX: I65.23 Occlusion and stenosis of bilateral carotid arteries (principal)

== ENCOUNTER → 2020-11-10 | Outpatient (REF) | payer MEDICARE ==
[2020-11-10 16:47] LABS: BASO % 0.8 % (0.0-1.0); EOS # 0.1 10^3/uL (0.0-0.5); EOS % 2.5 % (0.0-3.0); HEMATOCRIT 40.4 % (42.0-52.0); LYMPH # 1.6 10^3/uL (1.5-5.0); LYMPH % 31.9 % (24.0-44.0); MEAN CORPUSCULAR HEMOGLOBIN 27.5 pg (27.0-33.0); MEAN CORPUSCULAR HGB CONC 32.2 g/dl (32.0-36.5); MEAN CORPUSCULAR VOLUME 85.6 fl (80.0-96.0); MONO # 0.4 10^3/uL (0.0-0.8); MONO % 7.6 % (2.0-8.0); NEUTROPHILS # 2.9 10^3/uL (1.5-8.5); PLATELET COUNT, AUTOMATED 195 10^3/uL (150-450); RED BLOOD COUNT 4.72 10^6/uL (4.30-6.10); WHITE BLOOD COUNT 5.1 10^3/uL (4.0-10.0)
[2020-11-10 16:57] LABS: ALBUMIN 3.4 GM/DL (3.2-5.2); ALT/SGPT 30 U/L (12-78); BILIRUBIN,TOTAL 0.3 MG/DL (0.2-1.0); BLOOD UREA NITROGEN 15 MG/DL (7-18); CALCIUM LEVEL 9.1 MG/DL (8.8-10.2); CARBON DIOXIDE LEVEL 30 MEQ/L (21-32); CHLORIDE LEVEL 102 MEQ/L (98-107); CREATININE FOR GFR 0.81 MG/DL (0.70-1.30); FERRITIN 41 NG/ML (26-388); GLOMERULAR FILTRATION RATE > 60.0 (>42); GLUCOSE, FASTING 96 MG/DL (70-100); IRON (FE) 58 UG/DL (65-175); PERCENT SATURATION 16.2 % (19.7-50.0); POTASSIUM SERUM 4.2 MEQ/L (3.5-5.1); SODIUM LEVEL 138 MEQ/L (136-145); TOTAL IRON BINDING CAPACITY 359 UG/DL (250-450); TOTAL PROTEIN 6.9 GM/DL (6.4-8.2)
== END ==
LOC: M LABDRWCV 15:51
PROVIDERS: ATTEND Physician Assistant Medical
DX: D64.9 Anemia, unspecified (principal); R94.5 Abnormal results of liver function studies

== ENCOUNTER → 2021-03-04 | Outpatient (REF) | payer MEDICARE ==
[2021-03-04 12:43] LABS: BLOOD UREA NITROGEN 16 MG/DL (7-18); CALCIUM LEVEL 9.2 MG/DL (8.8-10.2); CARBON DIOXIDE LEVEL 30 MEQ/L (21-32); CHLORIDE LEVEL 104 MEQ/L (98-107); CREATININE FOR GFR 0.86 MG/DL (0.70-1.30); FREE T3 2.2 PG/ML (2.2-4.0); FREE T4 1.12 NG/DL (0.76-1.46); GLOMERULAR FILTRATION RATE > 60.0 (>42); GLUCOSE, FASTING 94 MG/DL (70-100); POTASSIUM SERUM 4.1 MEQ/L (3.5-5.1); SODIUM LEVEL 139 MEQ/L (136-145)
== END ==
LOC: M SFHCCLAY 08:42
PROVIDERS: ATTEND Family Medicine
DX: I11.9 Hypertensive heart disease without heart failure (principal); E03.9 Hypothyroidism, unspecified

== ENCOUNTER → 2021-03-24 | Outpatient (CLI) | payer MEDICARE ==
--- NOTE | 2021-03-24 11:44 | REP ---
INDICATION: PAIN. COMPARISON: None. TECHNIQUE: AP, lateral, coned-down views of the lumbosacral spine. FINDINGS: Age-related osteopenia. Alignment and lordosis maintained. No acute fracture/compression injury or subluxation. Moderate/early advanced multilevel degenerative changes include endplate sclerosis, marginal spurring, facet hypertrophy and disc space narrowing. Findings most pronounced at L4-5 and L5-S1. IMPRESSION: Age-related osteopenia and moderate/early advanced multilevel degenerative changes. <Electronically signed by Alex Mccabe > 03/24/21 [id number]
--- NOTE | 2021-03-24 11:45 | REP ---
INDICATION: PAIN. COMPARISON: None. TECHNIQUE: Two frontal views of the pelvis. FINDINGS: Age-related osteopenia and degenerative changes are appreciated. Hip joints demonstrate increased sclerosis and joint space narrowing with marginal spurring bilaterally. No obvious acute or healed injury. IMPRESSION: Age-related degenerative changes. <Electronically signed by Alex Mccabe > 03/24/21 [id number]
== END ==
LOC: M SOG 11:09
PROVIDERS: ATTEND Orthopaedic Surgery
DX: M85.80 Other specified disorders of bone density and structure, unspecified site (principal); M54.5 Low back pain; M25.552 Pain in left hip

== ENCOUNTER → 2021-08-31 | Outpatient (REF) | payer MEDICARE | LOC: M SFHCCLAY 09:01 | PROVIDERS: ATTEND Family Medicine | DX: I11.9 Hypertensive heart disease without heart failure (principal); E03.9 Hypothyroidism, unspecified; E55.9 Vitamin D deficiency, unspecified ==

== ENCOUNTER 2021-09-02 17:36 | Emergency (ER) | payer MEDICARE ==
[~2021-09-02] VITALS: Ht 177.8 cm; Wt 79.4 kg
[2021-09-02] MEDS ORDERED: LOSA25TA13 (17:44)
[2021-09-02] MEDS ORDERED: MORPHINE 4 MG/ML 1ML VIAL/SYRINGE (J2270) IV ONE (18:50)
[2021-09-02] MEDS ORDERED: ONDANSETRON 4MG/2ML VIAL IV ONE (18:50)
[2021-09-02 19:05] LABS: BASO % 0.2 % (0.0-1.0); EOS # 0.1 10^3/uL (0.0-0.5); HEMATOCRIT 38.9 % (42.0-52.0); HEMOGLOBIN 13.2 g/dl (13.5-17.5); LYMPH # 1.2 10^3/uL (1.5-5.0); MEAN CORPUSCULAR HEMOGLOBIN 27.4 pg (27.0-33.0); MEAN CORPUSCULAR HGB CONC 33.9 g/dl (32.0-36.5); MEAN CORPUSCULAR VOLUME 80.9 fl (80.0-96.0); MONO # 0.5 10^3/uL (0.0-0.8); MONO % 7.9 % (2.0-8.0); NEUTROPHILS # 4.4 10^3/uL (1.5-8.5); NEUTROPHILS % 70.6 % (36.0-66.0); PLATELET COUNT, AUTOMATED 192 10^3/uL (150-450); RED BLOOD COUNT 4.81 10^6/uL (4.30-6.10); WHITE BLOOD COUNT 6.2 10^3/uL (4.0-10.0)
[2021-09-02 19:31] LABS: ALBUMIN 3.5 GM/DL (3.2-5.2); ALT/SGPT 31 U/L (12-78); BILIRUBIN,DIRECT 0.1 MG/DL (0.0-0.2); BILIRUBIN,TOTAL 0.4 MG/DL (0.2-1.0); BLOOD UREA NITROGEN 11 MG/DL (7-18); CARBON DIOXIDE LEVEL 27 MEQ/L (21-32); CHLORIDE LEVEL 98 MEQ/L (98-107); CREATININE FOR GFR 0.85 MG/DL (0.70-1.30); GLOMERULAR FILTRATION RATE > 60.0 (>35); GLUCOSE, FASTING 103 MG/DL (70-100); LIPASE 130 U/L (73-393); SODIUM LEVEL 130 MEQ/L (136-145); TOTAL PROTEIN 6.9 GM/DL (6.4-8.2)
[2021-09-02] MEDS: GASTROGRAFIN SOLUTION 30ML PO SCH ×2 (19:47→20:30)
[2021-09-02] MEDS ORDERED: ISOVUE-370 76% 100ML VIAL As Ordered ONE (20:38)
[2021-09-02] MEDS ORDERED: PROT1TAB2 PO (23:25)
[2021-09-02 23:32] VITALS: BP 157/77
== END 2021-09-02 23:50 | disposition home or self-care (01) ==
LOC: M ED 17:36
DX: R10.10 Upper abdominal pain, unspecified (principal); R91.1 Solitary pulmonary nodule; R94.31 Abnormal electrocardiogram [ECG] [EKG]; I10 Essential (primary) hypertension; E07.9 Disorder of thyroid, unspecified; Z79.899 Other long term (current) drug therapy
CPT/HCPCS: 74177; 80048; 80076; 81001; 83690; 84484; 85025; 93005; 93041; 96374; 96375; 99284; J2270; J2405; Q9963; Q9967

== ENCOUNTER → 2021-09-08 | Outpatient (REF) | payer MEDICARE ==
[~2021-09-08] MED LIST changes: +LOSA25TA13; +PROT1TAB2 PO
== END ==
LOC: M LAB REF 16:42
PROVIDERS: ATTEND Nurse Practitioner Family
DX: R35.0 Frequency of micturition (principal)

== ENCOUNTER → 2021-09-10 | Outpatient (CLI) | payer MEDICARE ==
[2021-09-10 16:17] LABS: HEMOGLOBIN A1c 5.6 %
[2021-09-10 16:27] LABS: BLOOD UREA NITROGEN 15 MG/DL (7-18); CALCIUM LEVEL 9.1 MG/DL (8.8-10.2); CARBON DIOXIDE LEVEL 27 MEQ/L (21-32); CHLORIDE LEVEL 99 MEQ/L (98-107); CREATININE FOR GFR 0.92 MG/DL (0.70-1.30); GLOMERULAR FILTRATION RATE > 60.0 (>35); GLUCOSE, FASTING 85 MG/DL (70-100); POTASSIUM SERUM 4.2 MEQ/L (3.5-5.1); SODIUM LEVEL 133 MEQ/L (136-145); THYROID STIMULATING HORMONE 0.736 uIU/ML (0.358-3.740)
== END ==
LOC: M LAB 15:01
PROVIDERS: ATTEND Nurse Practitioner Family
DX: E87.1 Hypo-osmolality and hyponatremia (principal); R35.0 Frequency of micturition; Z79.899 Other long term (current) drug therapy
CPT/HCPCS: 36415; 80048; 83036; 84439; 84443; G0103

== ENCOUNTER → 2021-11-03 | Outpatient (CLI) | payer MEDICARE ==
[2021-11-03 16:44] LABS: BASO % 0.3 % (0.0-1.0); EOS # 0.1 10^3/uL (0.0-0.5); EOS % 0.8 % (0.0-3.0); HEMATOCRIT 38.8 % (42.0-52.0); HEMOGLOBIN 13.1 g/dl (13.5-17.5); LYMPH # 1.1 10^3/uL (1.5-5.0); LYMPH % 15.3 % (24.0-44.0); MEAN CORPUSCULAR HEMOGLOBIN 27.6 pg (27.0-33.0); MEAN CORPUSCULAR HGB CONC 33.8 g/dl (32.0-36.5); MEAN CORPUSCULAR VOLUME 81.7 fl (80.0-96.0); MONO # 0.5 10^3/uL (0.0-0.8); MONO % 6.7 % (2.0-8.0); NEUTROPHILS # 5.6 10^3/uL (1.5-8.5); NEUTROPHILS % 76.6 % (36.0-66.0); PLATELET COUNT, AUTOMATED 204 10^3/uL (150-450); RED BLOOD COUNT 4.75 10^6/uL (4.30-6.10); WHITE BLOOD COUNT 7.3 10^3/uL (4.0-10.0)
[2021-11-03 17:13] LABS: ALBUMIN 3.6 GM/DL (3.2-5.2); ALT/SGPT 29 U/L (12-78); BILIRUBIN,TOTAL 0.5 MG/DL (0.2-1.0); BLOOD UREA NITROGEN 14 MG/DL (7-18); CARBON DIOXIDE LEVEL 26 MEQ/L (21-32); CHLORIDE LEVEL 100 MEQ/L (98-107); CREATININE FOR GFR 0.82 MG/DL (0.70-1.30); FREE T4 1.29 NG/DL (0.76-1.46); GLOMERULAR FILTRATION RATE > 60.0 (>35); GLUCOSE, FASTING 98 MG/DL (70-100); POTASSIUM SERUM 4.2 MEQ/L (3.5-5.1); SODIUM LEVEL 131 MEQ/L (136-145); THYROID STIMULATING HORMONE 0.882 uIU/ML (0.358-3.740); TOTAL PROTEIN 7.3 GM/DL (6.4-8.2)
== END ==
LOC: M LAB 15:57
PROVIDERS: ATTEND Nurse Practitioner Family
DX: I10 Essential (primary) hypertension (principal)

== ENCOUNTER → 2021-11-10 | Outpatient (REF) | payer MEDICARE | LOC: M SFHCPLAZ 09:12 | PROVIDERS: ATTEND Internal Medicine Hematology | DX: E78.5 Hyperlipidemia, unspecified (principal) ==

== ENCOUNTER → 2021-11-11 | Outpatient (REF) | payer MEDICARE ==
[2021-11-11 15:55] LABS: BASO % 0.6 % (0.0-1.0); EOS # 0.1 10^3/uL (0.0-0.5); HEMATOCRIT 40.1 % (42.0-52.0); HEMOGLOBIN 13.3 g/dl (13.5-17.5); LYMPH # 1.8 10^3/uL (1.5-5.0); LYMPH % 26.7 % (24.0-44.0); MEAN CORPUSCULAR HEMOGLOBIN 28.1 pg (27.0-33.0); MEAN CORPUSCULAR HGB CONC 33.2 g/dl (32.0-36.5); MEAN CORPUSCULAR VOLUME 84.6 fl (80.0-96.0); MONO # 0.5 10^3/uL (0.0-0.8); MONO % 6.8 % (2.0-8.0); NEUTROPHILS # 4.2 10^3/uL (1.5-8.5); NEUTROPHILS % 63.6 % (36.0-66.0); PLATELET COUNT, AUTOMATED 205 10^3/uL (150-450); RED BLOOD COUNT 4.74 10^6/uL (4.30-6.10); WHITE BLOOD COUNT 6.6 10^3/uL (4.0-10.0)
[2021-11-11 16:27] LABS: CHOLESTEROL LEVEL 225 MG/DL (<200); CHOLESTEROL RISK RATIO 3.515 (<5); FERRITIN 38 NG/ML (26-388); HDL CHOLESTEROL 64 MG/DL (>40); LDL CHOLESTEROL 136 MG/DL (<100); NON-HDL-C 161 MG/DL; TOTAL PROTEIN 6.9 GM/DL (6.4-8.2); TRIGLYCERIDES LEVEL 127 MG/DL (<150)
[2021-11-11 16:30] LABS: HEMOGLOBIN A1c 5.5 %
[2021-11-11 16:34] LABS: TESTOSTERONE 160 NG/DL (241-827); VITAMIN B12 LEVEL 757 PG/ML (247-911)
[2021-11-11 18:09] LABS: FOLATE > 24.0 NG/ML (>5.4)
== END ==
LOC: M SFHCPLAZ 08:25
PROVIDERS: ATTEND Internal Medicine Hematology
DX: E78.5 Hyperlipidemia, unspecified (principal); D64.9 Anemia, unspecified; Z79.899 Other long term (current) drug therapy

== ENCOUNTER 2021-11-16 13:58 | Emergency (ER) | payer MEDICARE ==
[~2021-11-16] VITALS: Ht 177.8 cm; Wt 77.9 kg
[2021-11-16] MEDS ORDERED: AMLO2.5T3 (14:14)
[2021-11-16] MEDS ORDERED: LISI10TA22 (14:14)
[2021-11-16 15:13] LABS: BASO % 0.1 % (0.0-1.0); EOS % 0.2 % (0.0-3.0); HEMATOCRIT 38.9 % (42.0-52.0); LYMPH # 0.3 10^3/uL (1.5-5.0); LYMPH % 3.2 % (24.0-44.0); MEAN CORPUSCULAR HEMOGLOBIN 27.4 pg (27.0-33.0); MEAN CORPUSCULAR HGB CONC 33.4 g/dl (32.0-36.5); MEAN CORPUSCULAR VOLUME 81.9 fl (80.0-96.0); MONO # 0.5 10^3/uL (0.0-0.8); MONO % 5.3 % (2.0-8.0); NEUTROPHILS # 7.7 10^3/uL (1.5-8.5); NEUTROPHILS % 90.7 % (36.0-66.0); PLATELET COUNT, AUTOMATED 183 10^3/uL (150-450); RED BLOOD COUNT 4.75 10^6/uL (4.30-6.10); WHITE BLOOD COUNT 8.5 10^3/uL (4.0-10.0)
[2021-11-16] MEDS ORDERED: PANTOPRAZOLE 40MG VIAL IV ONE (15:30)
[2021-11-16] MEDS ORDERED: GI COCKTAIL 50ML BTL(HYOSCYAMINE/MAALOX/LIDOCAINE VISCOUS)(1:3:1) PO ONE (15:30)
[2021-11-16 15:41] LABS: CK-MB VALUE MASS < 1.0 NG/ML (<3.6); CPK CREATINE PHOSPHOKINASE 49 U/L (39-308); MB/CK RELATIVE INDEX 2.04 (< OR =4)
[2021-11-16 15:42] LABS: ALBUMIN 3.7 GM/DL (3.2-5.2); ALT/SGPT 27 U/L (12-78); BILIRUBIN,DIRECT 0.2 MG/DL (0.0-0.2); BILIRUBIN,TOTAL 0.7 MG/DL (0.2-1.0); BLOOD UREA NITROGEN 10 MG/DL (7-18); CALCIUM LEVEL 9.5 MG/DL (8.8-10.2); CARBON DIOXIDE LEVEL 25 MEQ/L (21-32); CHLORIDE LEVEL 99 MEQ/L (98-107); CREATININE FOR GFR 0.82 MG/DL (0.70-1.30); GLOMERULAR FILTRATION RATE > 60.0 (>35); GLUCOSE, FASTING 109 MG/DL (70-100); LIPASE 104 U/L (73-393); POTASSIUM SERUM 4.2 MEQ/L (3.5-5.1); SODIUM LEVEL 132 MEQ/L (136-145); TOTAL PROTEIN 7.1 GM/DL (6.4-8.2)
[2021-11-16 16:10] LABS: RSV AMPLIFICATION NEGATIVE (NEGATIVE)
[2021-11-16] MEDS: GASTROGRAFIN SOLUTION 30ML PO SCH ×2 (16:47→17:00)
[2021-11-16] MEDS ORDERED: ISOVUE-370 76% 100ML VIAL As Ordered ONE (17:10)
[2021-11-16] MEDS ORDERED: MORPHINE 4 MG/ML 1ML VIAL/SYRINGE IV ONE (17:30)
[2021-11-16] MEDS ORDERED: MORPHINE 2 MG/ML 1ML VIAL IV ONE (19:45)
[2021-11-16] MEDS ORDERED: HYDROMORPHONE HCL 0.5 MG/ 0.5 ML SYRINGE (J1170 PER 1) IV PRN (21:50)
[2021-11-16] MEDS ORDERED: NS 1,000 ML IV SCH (21:50)
[2021-11-16] MEDS ORDERED: SUCRALFATE SUSP 1GM/10ML UD PO ONE (21:50)
[2021-11-17] MEDS ORDERED: SYNT75TA PO (06:35)
[2021-11-17] MEDS ORDERED: HOME MED LIST COMPLETE! XX SCH (06:35)
[2021-11-17] MEDS ORDERED: ALPR0.25 PO (06:35)
[2021-11-17] MEDS ORDERED: PANT40TA29 PO ×2 (06:35→10:59)
[2021-11-17] MEDS ORDERED: CO Q200C10 PO (06:35)
[2021-11-17] MEDS ORDERED: AMLO2.5T3 PO (06:35)
[2021-11-17] MEDS ORDERED: MAGN400T2 PO (06:35)
[2021-11-17] MEDS ORDERED: VITMTA PO (06:35)
[2021-11-17 07:03] LABS: BLOOD UREA NITROGEN 12 MG/DL (7-18); CALCIUM LEVEL 7.9 MG/DL (8.8-10.2); CARBON DIOXIDE LEVEL 28 MEQ/L (21-32); CHLORIDE LEVEL 99 MEQ/L (98-107); GLOMERULAR FILTRATION RATE > 60.0 (>35); GLUCOSE, FASTING 112 MG/DL (70-100); MAGNESIUM LEVEL 2.1 MG/DL (1.8-2.4); SODIUM LEVEL 130 MEQ/L (136-145)
[2021-11-17] MEDS ORDERED: HEPARIN SOD (PORCINE) 5000UNITS/ML 1ML VIAL/SYRINGE SQ SCH (09:00)
[2021-11-17] MEDS ORDERED: MIRALAX *UNIT DOSE* 17GM PACKET PO SCH (09:00)
[2021-11-17] MEDS ORDERED: PANTOPRAZOLE 40MG VIAL IV SCH (09:00)
[2021-11-17 09:43] LABS: BASO % 0.2 % (0.0-1.0); HEMATOCRIT 35.3 % (42.0-52.0); HEMOGLOBIN 11.8 g/dl (13.5-17.5); LYMPH # 0.4 10^3/uL (1.5-5.0); LYMPH % 6.6 % (24.0-44.0); MEAN CORPUSCULAR HEMOGLOBIN 28.2 pg (27.0-33.0); MEAN CORPUSCULAR HGB CONC 33.4 g/dl (32.0-36.5); MEAN CORPUSCULAR VOLUME 84.2 fl (80.0-96.0); MONO # 0.6 10^3/uL (0.0-0.8); MONO % 9.3 % (2.0-8.0); NEUTROPHILS % 83.2 % (36.0-66.0); PLATELET COUNT, AUTOMATED 153 10^3/uL (150-450); RED BLOOD COUNT 4.19 10^6/uL (4.30-6.10)
[2021-11-17 10:00] VITALS: BP 139/72
[2021-11-17] MEDS ORDERED: CARA1TAB6 PO (10:57)
[2021-11-17] MEDS ORDERED: MIRA3350 PO (10:57)
[2021-11-17] MEDS ORDERED: MAALOX 30 ML SUSP *UDC PO PRN (12:05)
[2021-11-17] MEDS ORDERED: ACETAMINOPHEN TAB 650MG DOSE (2X325MG) PO PRN (12:05)
[2021-11-17] MEDS ORDERED: HEPARIN SOD (PORCINE) 5000UNITS/ML 1ML VIAL/SYRINGE SC SCH (12:05)
[2021-11-17] MEDS ORDERED: MOM 30ML SUSPENSION UDC PO PRN (12:05)
[2021-11-17] MEDS ORDERED: DOCUSATE SODIUM 100MG CAPSULE PO SCH (21:00)
== END 2021-11-17 10:30 | disposition other institution (70) ==
LOC: M ED 13:58 → UNDOADMOB 13:59 → M ED INP 13:59 → ENRESERV 11-17 09:35 → M ED 11-17 10:30
DX: U07.1 COVID-19 (principal); R94.31 Abnormal electrocardiogram [ECG] [EKG]; C61 Malignant neoplasm of prostate; J45.909 Unspecified asthma, uncomplicated; E78.5 Hyperlipidemia, unspecified; Z79.899 Other long term (current) drug therapy
CPT/HCPCS: 36415; 71045; 74177; 80048; 80076; 82550; 82553; 83690; 83735; 84484; 85025; 87631; 93005; 93041; 94760; 96374; 96375; 99285; J1170; J1644; J2270; Q9963; Q9967

== ENCOUNTER 2021-11-17 12:00 | Outpatient (CLI) | payer MEDICARE ==
[~2021-11-17] VITALS: Ht 177.8 cm; Wt 77.2 kg
[~2021-11-17 12:00] MED LIST changes: +ALPR0.25 PO; +AMLO2.5T3; +AMLO2.5T3 PO; +CARA1TAB6 PO; +CO Q200C10 PO; +LISI10TA22; +MAGN400T2 PO; +MIRA3350 PO; +PANT40TA29 PO; +SYNT75TA PO; +VITMTA PO
[2021-11-17] MEDS ORDERED: EPINEPHrine INJ 1 MG/ML 1ML AMP IM PRN (12:05)
[2021-11-17] MEDS ORDERED: methylPREDNISolone 125MG 2ML VIAL IV PRN (12:05)
[2021-11-17] MEDS ORDERED: ALBUTEROL SULFATE 2.5 MG/0.5 ML INH NEB SOLN INH PRN (12:05)
[2021-11-17] MEDS ORDERED: ALBUTEROL 90 MCG/ACT 8GM HFA INHALER INH PRN (12:05)
[2021-11-17] MEDS ORDERED: NS 1,000 ML IV SCH (12:05)
[2021-11-17] MEDS ORDERED: diphenhydrAMINE 50MG/ML VIAL (J1200) IV PRN (12:05)
[2021-11-17] MEDS ORDERED: SUCRALFATE SUSP 1GM/10ML UD PO ONE (12:45)
[2021-11-17] MEDS ORDERED: BEBTELOVIMAB 175MG 2ML VIAL (EUA) IV ONE (13:00)
[2021-11-17 13:19] VITALS: BP 141/65
== END 2021-11-17 14:11 | disposition left against medical advice (07) ==
LOC: M OPCLI4 12:00 → M 4MAIN 12:00 → M OPCLI4 14:11
PROVIDERS: ATTEND Internal Medicine
DX: U07.1 COVID-19 (principal)

== ENCOUNTER → 2021-11-25 | Outpatient (CLI) | payer MEDICARE ==
[2021-11-25 18:50] LABS: RHEUMATOID FACTOR QUANT < 10.0 IU/ML (<15.0)
[2021-11-25 19:06] LABS: FOLATE 21.4 NG/ML; VITAMIN B12 LEVEL 1250 PG/ML
== END ==
LOC: M LAB 16:24
PROVIDERS: ATTEND Nurse Practitioner Family
DX: M79.10 Myalgia, unspecified site (principal)

== ENCOUNTER → 2021-11-29 | Outpatient (CLI) | payer MEDICARE | LOC: M PLAIMG 09:27 | PROVIDERS: ATTEND Physician Assistant | DX: J47.9 Bronchiectasis, uncomplicated (principal); R91.8 Other nonspecific abnormal finding of lung field ==

== ENCOUNTER → 2021-12-03 | Outpatient (CLI) | payer MEDICARE | LOC: M LABSMTC 11:13 | PROVIDERS: ATTEND Anesthesiology | DX: Z01.812 Encounter for preprocedural laboratory examination (principal); Z20.822 Contact with and (suspected) exposure to COVID-19 ==

== ENCOUNTER → 2021-12-07 | Outpatient (CLI) | payer MEDICARE | LOC: M LAB 17:03 | PROVIDERS: ATTEND Urology | DX: Z53.9 Procedure and treatment not carried out, unspecified reason (principal) ==

== ENCOUNTER → 2021-12-09 | Outpatient (REF) | payer MEDICARE ==
[2021-12-09 16:19] LABS: APPEARANCE, URINE CLEAR (CLEAR); BACTERIA, URINE AUTO NEGATIVE (NEGATIVE); BILIRUBIN, URINE AUTO NEGATIVE (NEGATIVE); BLOOD, URINE BLOOD NEGATIVE (NEGATIVE); COLOR, URINE YELLOW (YELLOW); GLUCOSE, URINE (UA) AUTO NEGATIVE (NEGATIVE); KETONE, URINE AUTO NEGATIVE (NEGATIVE); LEUKOCYTE ESTERASE, URINE AUTO NEGATIVE (NEGATIVE); NITRITE, URINE AUTO NEGATIVE (NEGATIVE); PROTEIN, URINE AUTO NEGATIVE (NEGATIVE); RBC, URINE AUTO 0 /HPF (0-3); SPECIFIC GRAVITY URINE AUTO 1.018 (1.002-1.035); SQUAMOUS EPITHELIAL CELL UR AU 0 /HPF (0-6); UROBILINOGEN, URINE AUTO 0.2 mg/dL (0.0-2.0); WBC, URINE AUTO 0 /HPF (0-3)
== END ==
LOC: M SFHCCAPE 13:06
PROVIDERS: ATTEND Urology
DX: R31.0 Gross hematuria (principal)

== ENCOUNTER → 2022-01-04 | Outpatient (REF) | payer MEDICARE ==
[2022-01-04 16:26] LABS: BASO % 0.5 % (0.0-1.0); EOS # 0.1 10^3/uL (0.0-0.5); EOS % 1.1 % (0.0-3.0); HEMATOCRIT 41.1 % (42.0-52.0); HEMOGLOBIN 13.5 g/dl (13.5-17.5); LYMPH # 1.3 10^3/uL (1.5-5.0); LYMPH % 21.3 % (24.0-44.0); MEAN CORPUSCULAR HEMOGLOBIN 27.5 pg (27.0-33.0); MEAN CORPUSCULAR HGB CONC 32.8 g/dl (32.0-36.5); MEAN CORPUSCULAR VOLUME 83.7 fl (80.0-96.0); MONO # 0.4 10^3/uL (0.0-0.8); MONO % 6.6 % (2.0-8.0); NEUTROPHILS # 4.3 10^3/uL (1.5-8.5); PLATELET COUNT, AUTOMATED 211 10^3/uL (150-450); RED BLOOD COUNT 4.91 10^6/uL (4.30-6.10); WHITE BLOOD COUNT 6.2 10^3/uL (4.0-10.0)
[2022-01-04 17:13] LABS: ALBUMIN 3.6 GM/DL (3.2-5.2); ALT/SGPT 39 U/L (12-78); BILIRUBIN,TOTAL 0.5 MG/DL (0.2-1.0); BLOOD UREA NITROGEN 9 MG/DL (7-18); CALCIUM LEVEL 8.7 MG/DL (8.8-10.2); CARBON DIOXIDE LEVEL 26 MEQ/L (21-32); CHLORIDE LEVEL 100 MEQ/L (98-107); CHOLESTEROL LEVEL 213 MG/DL (<200); CHOLESTEROL RISK RATIO 3.227 (<5); CREATININE FOR GFR 0.84 MG/DL (0.70-1.30); GLOMERULAR FILTRATION RATE > 60.0 (>35); GLUCOSE, FASTING 98 MG/DL (70-100); HDL CHOLESTEROL 66 MG/DL (>40); LDL CHOLESTEROL 127 MG/DL (<100); NON-HDL-C 147 MG/DL; POTASSIUM SERUM 4.2 MEQ/L (3.5-5.1); SODIUM LEVEL 133 MEQ/L (136-145); TOTAL 25(OH) VITAMIN D 33.3 NG/ML (30.0-100.0); TOTAL PROTEIN 7.1 GM/DL (6.4-8.2); TRIGLYCERIDES LEVEL 101 MG/DL (<150)
== END ==
LOC: M SFHCCAPE 09:25
PROVIDERS: ATTEND Internal Medicine Hematology
DX: I11.9 Hypertensive heart disease without heart failure (principal); E78.5 Hyperlipidemia, unspecified; R91.8 Other nonspecific abnormal finding of lung field; Z79.899 Other long term (current) drug therapy

== ENCOUNTER 2022-01-20 15:13 | Outpatient (RCR) | payer MEDICARE ==
[~2022-01-20 15:13] MED LIST changes: +SUCR1TA PO
== END 2022-01-27 ==
LOC: M PT 15:13
PROVIDERS: ATTEND Internal Medicine Hematology
DX: M54.9 Dorsalgia, unspecified (principal)

== ENCOUNTER → 2022-02-01 | Outpatient (CLI) | payer MEDICARE | LOC: M LABSMTC 09:23 | PROVIDERS: ATTEND Anesthesiology | DX: Z20.828 Contact with and (suspected) exposure to other viral communicable diseases (principal); Z11.59 Encounter for screening for other viral diseases ==

== ENCOUNTER → 2022-02-21 | Outpatient (CLI) | payer MEDICARE ==
[2022-02-21 20:04] LABS: BLOOD UREA NITROGEN 14 MG/DL (7-18); CREATININE FOR GFR 0.96 MG/DL (0.70-1.30); GLOMERULAR FILTRATION RATE > 60.0 (>35); GLUCOSE, FASTING 114 MG/DL (70-100)
[2022-02-21 20:05] LABS: ALBUMIN 3.5 GM/DL (3.2-5.2); ALT/SGPT 26 IU/L (0-32); BILIRUBIN,TOTAL 0.4 MG/DL (0.2-1.0); CARBON DIOXIDE LEVEL 25 mmol/L (20-29); CHLORIDE LEVEL 103 MEQ/L (98-107); FREE T4 1.06 NG/DL (0.76-1.46); SODIUM LEVEL 137 MEQ/L (136-145); THYROID STIMULATING HORMONE 0.811 uIU/ML (0.358-3.740); TOTAL PROTEIN 7.1 GM/DL (6.4-8.2)
[2022-02-21 23:17] LABS: HEMOGLOBIN A1c 5.8 %
== END ==
LOC: M LAB 18:01
PROVIDERS: ATTEND Nurse Practitioner Family
DX: E03.9 Hypothyroidism, unspecified (principal); I10 Essential (primary) hypertension; E87.1 Hypo-osmolality and hyponatremia; R53.83 Other fatigue

== ENCOUNTER → 2022-03-18 | Outpatient (CLI) | payer MEDICARE | LOC: M RAD 15:33 | PROVIDERS: ATTEND Internal Medicine Hematology | DX: R91.1 Solitary pulmonary nodule (principal) ==

== ENCOUNTER 2022-03-29 15:10 | Outpatient (RCR) | payer MEDICARE | END 2022-03-30 | LOC: M PT 15:10 | PROVIDERS: ATTEND Internal Medicine Hematology | DX: M54.9 Dorsalgia, unspecified (principal) ==

== ENCOUNTER → 2022-10-17 | Outpatient (CLI) | payer MEDICARE ==
[2022-10-17 17:53] LABS: APPEARANCE, URINE CLEAR (CLEAR); BACTERIA, URINE AUTO NEGATIVE (NEGATIVE); BILIRUBIN, URINE AUTO NEGATIVE (NEGATIVE); BLOOD, URINE BLOOD NEGATIVE (NEGATIVE); COLOR, URINE YELLOW (YELLOW); GLUCOSE, URINE (UA) AUTO NEGATIVE (NEGATIVE); KETONE, URINE AUTO NEGATIVE (NEGATIVE); LEUKOCYTE ESTERASE, URINE AUTO NEGATIVE (NEGATIVE); NITRITE, URINE AUTO NEGATIVE (NEGATIVE); PROTEIN, URINE AUTO NEGATIVE (NEGATIVE); RBC, URINE AUTO 0 /HPF (0-3); SQUAMOUS EPITHELIAL CELL UR AU 0 /HPF (0-6); UROBILINOGEN, URINE AUTO 0.2 mg/dL (0.0-2.0); WBC, URINE AUTO 0 /HPF (0-3)
== END ==
LOC: M PLALAB 15:05
PROVIDERS: ATTEND Urology
DX: C61 Malignant neoplasm of prostate (principal); R31.0 Gross hematuria

== ENCOUNTER → 2023-10-30 | Outpatient (REF) | payer MEDICARE ==
[2023-10-30 17:18] LABS: PROSTATIC SPECIFIC AG MONITOR 0.04 NG/ML (< 4.00)
== END ==
LOC: M SFHCCAPE 08:43
PROVIDERS: ATTEND Urology
DX: C61 Malignant neoplasm of prostate (principal); E29.1 Testicular hypofunction

== ENCOUNTER 2023-12-16 18:02 | Inpatient (IN) | payer MEDICARE ==
[~2023-12-16] VITALS: Ht 177.8 cm; Wt 82.0 kg
[2023-12-16] MEDS ORDERED: PILL CUTTER 1 EACH XX ONE (18:23)
[2023-12-16] MEDS: amLODIPine 5 MG TAB PO ONE (18:27)
[2023-12-16] MEDS: ACETAMINOPHEN 500 MG TAB PO ONE (18:29)
[2023-12-16 18:46] LABS: BASO % 0.6 % (0.0-1.0); EOS # 0.1 10^3/uL (0.0-0.5); EOS % 1.9 % (0.0-3.0); HEMATOCRIT 39.1 % (42.0-52.0); HEMOGLOBIN 13.2 g/dl (13.5-17.5); LYMPH # 2.1 10^3/uL (1.5-5.0); LYMPH % 30.5 % (24.0-44.0); MEAN CORPUSCULAR HEMOGLOBIN 27.3 pg (27.0-33.0); MEAN CORPUSCULAR HGB CONC 33.8 g/dl (32.0-36.5); MEAN CORPUSCULAR VOLUME 80.8 fl (80.0-96.0); MONO # 0.6 10^3/uL (0.0-0.8); MONO % 8.4 % (2.0-8.0); NEUTROPHILS # 4.1 10^3/uL (1.5-8.5); PLATELET COUNT, AUTOMATED 191 10^3/uL (150-450); RED BLOOD COUNT 4.84 10^6/uL (4.30-6.10)
[2023-12-16 19:06] LABS: ETHYL ALCOHOL (ETHANOL) < 0.003 % (0.000-0.010)
[2023-12-16 19:08] LABS: BLOOD UREA NITROGEN 11 MG/DL (9-23); CALCIUM LEVEL 8.7 MG/DL (8.3-10.6); CARBON DIOXIDE LEVEL 26 MMOL/L (20-31); CHLORIDE LEVEL 101 MMOL/L (98-107); CK-MB VALUE MASS < 1.0 NG/ML (<3.6); CPK CREATINE PHOSPHOKINASE 55 U/L (46-171); CREATININE FOR GFR 0.82 MG/DL (0.70-1.30); GLOMERULAR FILTRATION RATE > 60.0 (>35); GLUCOSE, FASTING 119 MG/DL (74-106); MAGNESIUM LEVEL 2.1 MG/DL (1.8-2.4); MB/CK RELATIVE INDEX 1.81 (< OR =4); POTASSIUM SERUM 3.3 MMOL/L (3.5-5.1); SODIUM LEVEL 134 MMOL/L (136-145)
[2023-12-16 19:10] LABS: FREE T4 1.13 NG/DL (0.89-1.76); PROTHROMBIN TIME 12.9 SECONDS (12.5-14.5); THYROID STIMULATING HORMONE 1.576 uIU/ML (0.55-4.78)
[2023-12-16] MEDS: POTASSIUM CHLORIDE 10MEQ SR TABLET PO ONE (20:00)
[2023-12-16 20:07] VITALS: BP 181/88
[2023-12-16 20:29] LABS: CK-MB VALUE MASS < 1.0 NG/ML (<3.6)
[2023-12-16 20:34] LABS: CPK CREATINE PHOSPHOKINASE 63 U/L (46-171); MB/CK RELATIVE INDEX 1.58 (< OR =4)
[2023-12-16] MEDS ORDERED: MULTTAB61 PO (20:41)
[2023-12-16] MEDS ORDERED: LEVO50TA5 PO (20:41)
[2023-12-16] MEDS ORDERED: HOME MED LIST COMPLETE! XX SCH (20:45)
[2023-12-16 21:19] LABS: CK-MB VALUE MASS < 1.0 NG/ML (<3.6)
[2023-12-16 21:23] LABS: CPK CREATINE PHOSPHOKINASE 52 U/L (46-171); MB/CK RELATIVE INDEX 1.92 (< OR =4)
[2023-12-16] MEDS ORDERED: ACETAMINOPHEN TAB 650MG DOSE (2X325MG) PO PRN (21:25)
[2023-12-16] MEDS: LORazepam 0.5 MG TAB PO ONE (21:38)
[2023-12-17] VITALS (7 sets, daily range): BP systolic 129–178; BP diastolic 63–87; TEMP 97–98; O2SAT 96–98
[2023-12-17] MEDS: LEVOTHYROXINE 50MCG TABLET (0.05MG) PO SCH (05:34)
[2023-12-17 05:51] LABS: HEMATOCRIT 38.4 % (42.0-52.0); HEMOGLOBIN 12.9 g/dl (13.5-17.5); MEAN CORPUSCULAR HEMOGLOBIN 27.3 pg (27.0-33.0); MEAN CORPUSCULAR HGB CONC 33.6 g/dl (32.0-36.5); MEAN CORPUSCULAR VOLUME 81.4 fl (80.0-96.0); PLATELET COUNT, AUTOMATED 182 10^3/uL (150-450); RED BLOOD COUNT 4.72 10^6/uL (4.30-6.10); WHITE BLOOD COUNT 6.5 10^3/uL (4.0-10.0)
[2023-12-17 06:27] LABS: ALBUMIN 3.1 G/DL (3.2-5.2); ALKALINE PHOSPHATASE 73 U/L (46-116); ALT/SGPT 22 U/L (7.0-40); AST/SGOT 15 U/L (<34); BILIRUBIN,TOTAL 0.5 MG/DL (0.3-1.2); BLOOD UREA NITROGEN 9 MG/DL (9-23); CALCIUM LEVEL 8.8 MG/DL (8.3-10.6); CARBON DIOXIDE LEVEL 28 MMOL/L (20-31); CHLORIDE LEVEL 104 MMOL/L (98-107); CREATININE FOR GFR 0.82 MG/DL (0.70-1.30); GLOMERULAR FILTRATION RATE > 60.0 (>35); GLUCOSE, FASTING 102 MG/DL (74-106); POTASSIUM SERUM 4.2 MMOL/L (3.5-5.1); SODIUM LEVEL 138 MMOL/L (136-145); TOTAL PROTEIN 6.4 G/DL (5.7-8.2)
[2023-12-17] MEDS: DOCUSATE SODIUM 100MG CAPSULE PO SCH (07:49)
[2023-12-17] MEDS: amLODIPine 5 MG TAB PO SCH (07:49)
[2023-12-17] MEDS: MAGNESIUM OXIDE 400MG TAB (MAG-OX) PO SCH (07:49)
[2023-12-17] MEDS ORDERED: AMLO1TAB24 PO (14:43)
[2023-12-17] MEDS ORDERED: PREVNAR-20 VACCINE 0.5ML SYRINGE IM.IMMUN ONE (16:00)
[2023-12-18] MEDS ORDERED: LEVOTHYROXINE 75MCG TABLET (0.075MG) PO SCH (06:00)
== END 2023-12-17 15:52 | disposition home or self-care (01) | DRG 305 ==
LOC: M ED 18:02 → EDBD 18:02 → M ED INP 22:24 → M PCU 12-17 02:48
PROVIDERS: ADMIT Internal Medicine; ATTEND Internal Medicine
DX: I16.0 Hypertensive urgency (principal); E87.6 Hypokalemia; I10 Essential (primary) hypertension; E03.9 Hypothyroidism, unspecified; R42 Dizziness and giddiness; Z91.148 Patient's other noncompliance with medication regimen for other reason; Z79.899 Other long term (current) drug therapy

== ENCOUNTER → 2024-10-08 | Outpatient (REF) | payer MEDICARE ==
[~2024-10-08] MED LIST changes: +MULTTAB61 PO
[2024-10-08 19:53] LABS: BASO % 0.7 % (0.0-1.0); EOS # 0.2 10^3/uL (0.0-0.5); EOS % 2.5 % (0.0-3.0); HEMATOCRIT 43.9 % (42.0-52.0); LYMPH # 1.8 10^3/uL (1.5-5.0); LYMPH % 30.7 % (24.0-44.0); MEAN CORPUSCULAR HEMOGLOBIN 26.3 pg (27.0-33.0); MEAN CORPUSCULAR HGB CONC 31.9 g/dl (32.0-36.5); MEAN CORPUSCULAR VOLUME 82.4 fl (80.0-96.0); MONO # 0.5 10^3/uL (0.0-0.8); MONO % 7.8 % (2.0-8.0); NEUTROPHILS # 3.5 10^3/uL (1.5-8.5); PLATELET COUNT, AUTOMATED 171 10^3/uL (150-450); RED BLOOD COUNT 5.33 10^6/uL (4.30-6.10)
[2024-10-08 20:15] LABS: ALBUMIN 3.5 G/DL (3.2-5.2); ALKALINE PHOSPHATASE 73 U/L (40-129); ALT/SGPT 15 U/L (7.0-40); AST/SGOT 16 U/L (<34); BILIRUBIN,TOTAL 0.5 MG/DL (0.3-1.2); BLOOD UREA NITROGEN 9 MG/DL (9-23); CALCIUM LEVEL 8.9 MG/DL (8.3-10.6); CARBON DIOXIDE LEVEL 28 MMOL/L (20-31); CHLORIDE LEVEL 104 MMOL/L (98-107); CREATININE FOR GFR 0.81 MG/DL (0.70-1.30); GLOMERULAR FILTRATION RATE > 60.0 (>35); GLUCOSE, FASTING 93 MG/DL (74-106); MAGNESIUM LEVEL 2.1 MG/DL (1.8-2.4); POTASSIUM SERUM 4.6 MMOL/L (3.5-5.1); SODIUM LEVEL 141 MMOL/L (136-145); TOTAL PROTEIN 7.2 G/DL (5.7-8.2)
[2024-10-08 20:19] LABS: THYROID STIMULATING HORMONE 0.972 uIU/ML (0.55-4.78)
[2024-10-08 20:38] LABS: HEMOGLOBIN A1c 5.4 % (4.0-6.0)
== END ==
LOC: M LABDRAWC 17:34
PROVIDERS: ATTEND Internal Medicine
DX: I50.32 Chronic diastolic (congestive) heart failure (principal); E03.9 Hypothyroidism, unspecified; R73.01 Impaired fasting glucose

== ENCOUNTER → 2024-10-30 | Outpatient (CLI) | payer MEDICARE ==
[~2024-10-30] MED LIST changes: +ACET-897 PO; +MECL-86 PO
== END ==
LOC: M SOG 08:00
PROVIDERS: ATTEND Orthopaedic Surgery
DX: M47.26 Other spondylosis with radiculopathy, lumbar region (principal); M25.552 Pain in left hip; I70.0 Atherosclerosis of aorta; M47.817 Spondylosis without myelopathy or radiculopathy, lumbosacral region; M16.12 Unilateral primary osteoarthritis, left hip

== ENCOUNTER 2024-11-02 16:14 | Inpatient (IN) | payer MEDICARE ==
[~2024-11-02] VITALS: Ht 180.3 cm; Wt 77.3 kg
[~2024-11-02 16:14] MED LIST changes: -ACET-897 PO; -MECL-86 PO
[2024-11-02] MEDS ORDERED: ISOVUE-370 76% 100ML VIAL As Ordered ONE (16:43)
[2024-11-02 16:58] LABS: BASO % 0.7 % (0.0-1.0); EOS # 0.1 10^3/uL (0.0-0.5); EOS % 1.2 % (0.0-3.0); HEMATOCRIT 40.5 % (42.0-52.0); HEMOGLOBIN 13.5 g/dl (13.5-17.5); LYMPH # 1.1 10^3/uL (1.5-5.0); LYMPH % 19.7 % (24.0-44.0); MEAN CORPUSCULAR HEMOGLOBIN 26.9 pg (27.0-33.0); MEAN CORPUSCULAR HGB CONC 33.3 g/dl (32.0-36.5); MEAN CORPUSCULAR VOLUME 80.7 fl (80.0-96.0); MONO # 0.4 10^3/uL (0.0-0.8); MONO % 6.7 % (2.0-8.0); NEUTROPHILS # 4.1 10^3/uL (1.5-8.5); NEUTROPHILS % 71.2 % (36.0-66.0); PLATELET COUNT, AUTOMATED 198 10^3/uL (150-450); RED BLOOD COUNT 5.02 10^6/uL (4.30-6.10); WHITE BLOOD COUNT 5.8 10^3/uL (4.0-10.0)
[2024-11-02] MEDS: LABETALOL 100MG/20ML VIAL IV STA (17:03)
[2024-11-02 17:13] LABS: INR 0.94; PARTIAL THROMBOPLASTIN TIME 26.7 SECONDS (24.8-34.2); PROTHROMBIN TIME 12.9 SECONDS (12.5-14.5)
[2024-11-02] MEDS: MECLIZINE 25 MG TABLET PO ONE (17:20)
[2024-11-02 17:25] LABS: LIPASE 43 U/L (12-53)
[2024-11-02 17:26] LABS: ALBUMIN 3.5 G/DL (3.2-5.2); ALKALINE PHOSPHATASE 75 U/L (40-129); ALT/SGPT 22 U/L (7.0-40); AST/SGOT 19 U/L (<34); BILIRUBIN,DIRECT < 0.1 MG/DL (<0.4); BILIRUBIN,TOTAL 0.3 MG/DL (0.3-1.2); BLOOD UREA NITROGEN 10 MG/DL (9-23); CALCIUM LEVEL 8.6 MG/DL (8.3-10.6); CARBON DIOXIDE LEVEL 28 MMOL/L (20-31); CHLORIDE LEVEL 97 MMOL/L (98-107); CK-MB VALUE MASS < 1.0 NG/ML (<3.6); CPK CREATINE PHOSPHOKINASE 41 U/L (46-171); CREATININE FOR GFR 0.73 MG/DL (0.70-1.30); GLOMERULAR FILTRATION RATE > 60.0 (>35); GLUCOSE, FASTING 132 MG/DL (74-106); MB/CK RELATIVE INDEX 2.43 (< OR =4); POTASSIUM SERUM 3.8 MMOL/L (3.5-5.1); SODIUM LEVEL 134 MMOL/L (136-145); TOTAL PROTEIN 7.1 G/DL (5.7-8.2)
[2024-11-02] MEDS: LORazepam 2 MG/ML 1ML VIAL IV PRN (19:08)
[2024-11-02] MEDS ORDERED: ACETAMINOPHEN 325 MG TAB PO PRN (19:35)
[2024-11-02] MEDS ORDERED: MOM 30ML SUSPENSION UDC PO PRN (19:35)
[2024-11-02] MEDS ORDERED: MECLIZINE 12.5 MG TAB PO PRN (19:35)
[2024-11-02] MEDS ORDERED: MAALOX 30 ML SUSP *UDC PO PRN (19:35)
[2024-11-02 20:14] LABS: HEMOGLOBIN A1c 5.1 % (4.0-6.0)
[2024-11-02] MEDS ORDERED: ACET-897 PO (20:46)
[2024-11-02] MEDS ORDERED: HOME MED LIST COMPLETE! XX SCH (20:50)
[2024-11-02 21:18] LABS: CHOLESTEROL RISK RATIO 3.78 (<5); HDL CHOLESTEROL 61.1 MG/DL (>40); LDL CHOLESTEROL 148.7 MG/DL (<100); MAGNESIUM LEVEL 1.9 MG/DL (1.8-2.4); NON-HDL-C 169.9 MG/DL
[2024-11-02 21:21] VITALS: BP 168/72; TEMP 98.2; O2SAT 95
[2024-11-02 21:21] LABS: THYROID STIMULATING HORMONE 0.76 uIU/ML (0.55-4.78); THYROXINE (T4) 8.8 UG/DL (4.5-10.9)
[2024-11-02 21:43] LABS: T UPTAKE 34.2 % (22.5-37.0)
[2024-11-02 22:00] VITALS: O2SAT 96
[2024-11-02] MEDS: DOCUSATE SODIUM 100MG CAPSULE PO SCH (22:04)
[2024-11-02] MEDS: CETIRIZINE (ZyrTEC) 10 MG TAB PO SCH (22:04)
[2024-11-02] MEDS: FLUTICASONE PROP 0.05% NASAL SPRAY 16 GM (FLONASE) NARES SCH (22:05)
[2024-11-02 23:00] VITALS: O2SAT 96
[2024-11-02 23:43] VITALS: BP 140/68; TEMP 98.2; O2SAT 96
[2024-11-03] VITALS (10 sets, daily range): BP systolic 128–158; BP diastolic 68–77; TEMP 98.1–98.6; O2SAT 94–97
[2024-11-03 05:02] LABS: HEMATOCRIT 36.5 % (42.0-52.0); HEMOGLOBIN 12.2 g/dl (13.5-17.5); MEAN CORPUSCULAR HEMOGLOBIN 27.1 pg (27.0-33.0); MEAN CORPUSCULAR HGB CONC 33.4 g/dl (32.0-36.5); MEAN CORPUSCULAR VOLUME 80.9 fl (80.0-96.0); PLATELET COUNT, AUTOMATED 178 10^3/uL (150-450); RED BLOOD COUNT 4.51 10^6/uL (4.30-6.10); WHITE BLOOD COUNT 6.3 10^3/uL (4.0-10.0)
[2024-11-03 05:43] LABS: ALBUMIN 3.1 G/DL (3.2-5.2); ALKALINE PHOSPHATASE 68 U/L (40-129); ALT/SGPT 14 U/L (7.0-40); AST/SGOT 14 U/L (<34); BILIRUBIN,TOTAL 0.4 MG/DL (0.3-1.2); BLOOD UREA NITROGEN 7 MG/DL (9-23); CALCIUM LEVEL 8.8 MG/DL (8.3-10.6); CARBON DIOXIDE LEVEL 29 MMOL/L (20-31); CHLORIDE LEVEL 99 MMOL/L (98-107); CREATININE FOR GFR 0.74 MG/DL (0.70-1.30); GLOMERULAR FILTRATION RATE > 60.0 (>35); GLUCOSE, FASTING 87 MG/DL (74-106); POTASSIUM SERUM 3.9 MMOL/L (3.5-5.1); SODIUM LEVEL 136 MMOL/L (136-145); TOTAL PROTEIN 6.4 G/DL (5.7-8.2)
[2024-11-03] MEDS ORDERED: MECLIZINE 25 MG TABLET PO PRN (07:35)
[2024-11-03] MEDS ORDERED: MECL-86 PO (08:33)
[2024-11-03] MEDS: HEPARIN SOD (PORCINE) 5000UNITS/ML 1ML VIAL/SYRINGE SC SCH (08:46)
[2024-11-03] MEDS: amLODIPine 5 MG TAB PO SCH (08:48)
[2024-11-03] MEDS: LEVOTHYROXINE 50MCG TABLET (0.05MG) PO SCH (10:59)
[2024-11-04] MEDS ORDERED: LEVOTHYROXINE 75MCG TABLET (0.075MG) PO SCH (06:00)
== END 2024-11-03 11:09 | disposition home or self-care (01) | DRG 305 ==
LOC: M ED 16:14 → M ED INP 19:34 → M PCU 21:16
PROVIDERS: ADMIT Student in an Organized Health Care Education/Training Program; ATTEND Student in an Organized Health Care Education/Training Program
DX: I16.0 Hypertensive urgency (principal); I10 Essential (primary) hypertension; K21.9 Gastro-esophageal reflux disease without esophagitis; E03.9 Hypothyroidism, unspecified; M51.369 Other intervertebral disc degeneration, lumbar region without mention of lumbar back pain or lower extremity pain; R42 Dizziness and giddiness; E78.5 Hyperlipidemia, unspecified; Z79.890 Hormone replacement therapy; Z79.899 Other long term (current) drug therapy; Z85.46 Personal history of malignant neoplasm of prostate; Z92.3 Personal history of irradiation

== ENCOUNTER → 2024-11-06 | Outpatient (REF) | payer MEDICARE ==
[~2024-11-06] MED LIST changes: +ACET-897 PO; +MECL-86 PO
[2024-11-06 18:29] LABS: PERCENT SATURATION 26.3 % (19.7-50.0)
[2024-11-06 18:31] LABS: FERRITIN 36.4 NG/ML (10.5-307.3)
== END ==
LOC: M LAB REF 17:57
PROVIDERS: ATTEND Internal Medicine
DX: D64.9 Anemia, unspecified (principal)

== ENCOUNTER → 2024-11-26 | Outpatient (REF) | payer MEDICARE ==
[2024-11-26 18:14] LABS: CALCIUM LEVEL 8.9 MG/DL (8.3-10.6); CREATININE FOR GFR 0.76 MG/DL (0.70-1.30); GLOMERULAR FILTRATION RATE 89.2 (>35); MAGNESIUM LEVEL 2.1 MG/DL (1.8-2.4); POTASSIUM SERUM 4.3 MMOL/L (3.5-5.1)
== END ==
LOC: M LABDRWCV 17:44
PROVIDERS: ATTEND Internal Medicine
DX: I11.0 Hypertensive heart disease with heart failure (principal); E87.1 Hypo-osmolality and hyponatremia; I50.32 Chronic diastolic (congestive) heart failure; R42 Dizziness and giddiness

== ENCOUNTER → 2025-03-05 | Outpatient (REF) | payer MEDICARE ==
[2025-03-05 19:07] LABS: BASO # 0.0 10^3/uL (0.0-0.2); BASO % 0.7 % (0.0-1.0); EOS # 0.1 10^3/uL (0.0-0.5); EOS % 1.8 % (0.0-3.0); LYMPH # 2.0 10^3/uL (1.5-5.0); LYMPH % 33.6 % (24.0-44.0); MONO # 0.5 10^3/uL (0.0-0.8); MONO % 7.4 % (2.0-8.0); NEUTROPHILS # 3.4 10^3/uL (1.5-8.5); NEUTROPHILS % 56.3 % (36.0-66.0); PLATELET COUNT, AUTOMATED 155 10^3/uL (150-450)
[2025-03-05 22:07] LABS: ALT/SGPT 16.0 U/L (7.0-40); AST/SGOT 23.0 U/L (<34); CALCIUM LEVEL 9.0 MG/DL (8.3-10.6); CARBON DIOXIDE LEVEL 28.0 MMOL/L (20-31); CHLORIDE LEVEL 100.0 MMOL/L (98-107); CHOLESTEROL LEVEL 235.0 MG/DL (<200); CHOLESTEROL RISK RATIO 3.58 (<5); CREATININE FOR GFR 0.78 MG/DL (0.70-1.30); GLOMERULAR FILTRATION RATE 88.5 (>35); LDL CHOLESTEROL 145.7 MG/DL (<100); MAGNESIUM LEVEL 2.2 MG/DL (1.8-2.4); NON-HDL-C 169.5 MG/DL; POTASSIUM SERUM 4.6 MMOL/L (3.5-5.1); SODIUM LEVEL 138.0 MMOL/L (136-145); TRIGLYCERIDES LEVEL 119.0 MG/DL (<150)
== END ==
LOC: M LABDRWCV 17:20
PROVIDERS: ATTEND Internal Medicine
DX: I50.32 Chronic diastolic (congestive) heart failure (principal); E03.9 Hypothyroidism, unspecified; D64.9 Anemia, unspecified

== ENCOUNTER → 2025-06-23 | Outpatient (REF) | payer MEDICARE ==
[2025-06-23 19:38] LABS: IRON (FE) 88.0 UG/DL (65-175)
[2025-06-23 19:39] LABS: PERCENT SATURATION 23.5 % (19.7-50.0)
== END ==
LOC: M LAB REF 17:45
PROVIDERS: ATTEND Internal Medicine
DX: R10.13 Epigastric pain (principal); E61.1 Iron deficiency